=== PATIENT | female | born 1960 | race American Indian/Alaskan Native ===

== ENCOUNTER 2017-07-05 05:34 | Inpatient (IN) | payer MEDICARE, OTHER ==
[2017-07-05] MEDS ORDERED: BENADRYL IV ONE (05:52)
[2017-07-05] MEDS ORDERED: MORPHINE IV ONE (05:52)
[2017-07-05] MEDS ORDERED: NACL 0.9% 500 ML 500 ML IV ONE (05:52)
[2017-07-05 06:01] LABS: Basophils % (Auto) 0.6 % (0.0-1.8); Eosinophils % (Auto) 0.1 % (0.0-4.3); Hematocrit 35.3 % (30.3-42.9); Hemoglobin 11.9 gm/dl (10.1-14.3); Mean Corpuscular HGB Conc 34 % (30-34); Mean Corpuscular Hemoglobin 27 pg (28-32); Mean Corpuscular Volume 78 fl (79-97); Platelet Count 205 K/mm3 (140-440); Red Cell Distribution Width 17.9 % (13.2-15.2); White Blood Count 7.8 K/mm3 (4.5-11.0)
[2017-07-05 06:19] LABS: Anion Gap 24 mmol/L; BUN/Creatinine Ratio 17.14; Blood Urea Nitrogen 12 mg/dL (7-17); Calcium 9.5 mg/dL (8.4-10.2); Carbon Dioxide 20 mmol/L (22-30); Chloride 101.1 mmol/L (98-107); Glucose 136 mg/dL (65-100); Potassium 3.7 mmol/L (3.6-5.0); Sodium 141 mmol/L (137-145)
--- NOTE | 2017-07-05 06:20 | Emergency Department Report ---
ED Chest Pain HPI - General Chief Complaint: Chest Pain Stated Complaint: CP/BACK PAIN Time Seen by Provider: 07/05/17 06:12 Source: patient Mode of arrival: Stretcher Limitations: No Limitations - History of Present Illness MD Complaint: chest pain -: This morning Onset: awoke with symptoms Pain Location: substernal, left chest Severity: moderate Severity scale (0 -10): 10 Quality: heaviness, pressure Consistency: constant Improves With: nitroglycerin re: denies: nausea, vomting, dyspnea Treatments Prior to Arrival: aspirin - Related Data Home Medications Medication Instructions Recorded Confirmed Last Taken Cyanocobalamin 1,000 1000units SUB-Q 2XW 05/13/16 05/13/16 Unknown Ibuprofen [Motrin 800 MG tab] 800 tab PO TID 05/13/16 05/13/16 2 Weeks Ago 800 Meloxicam 15 tab PO DAILY 05/13/16 05/13/16 05/12/16 08:00 Spironolact/Hctz Tab [Aldactazide 25 tab PO DAILY 05/13/16 05/13/16 05/12/16 25-25 Tab] 25 Zolpidem Tartrate 10 tab PO HS 05/13/16 05/13/16 05/12/16 09:00 10 Allergies Allergy/AdvReac Type Severity Reaction Status Date / Time morphine Allergy Itching Unverified 05/04/15 11:36 Heart Score - HEART Score History: Moderately suspicious EKG: Non-specific Age: 45-65 Risk factors: 1-2 risk factors Troponin: < normal limit HEART Score: 4 - Critical Actions Critical Actions: 4-6 pts:12-16.6% risk of adverse cardiac event. Should be admitted ED Review of Systems ROS: Stated complaint: CP/BACK PAIN Other details as noted in HPI Comment: All other systems reviewed and negative Constitutional: denies: chills, fever Cardiovascular: chest pain, palpitations. denies: paroxysmal nocturnal dyspnea Endocrine: denies: excessive sweating Gastrointestinal: denies: abdominal pain, nausea, vomiting Neurological: denies: headache ED Past Medical Hx - Past Medical History Hx Hypertension: Yes Hx Arthritis: Yes - Surgical History Hx Cholecystectomy: Yes - Social History Smoking Status: Never Smoker Substance Use Type: Alcohol - Medications Home Medications: Home Medications Medication Instructions Recorded Confirmed Last Taken Type Cyanocobalamin 1,000 1000units SUB-Q 2XW 05/13/16 05/13/16 Unknown History Ibuprofen [Motrin 800 MG tab] 800 tab PO TID 05/13/16 05/13/16 2 Weeks Ago History 800 Meloxicam 15 tab PO DAILY 05/13/16 05/13/16 05/12/16 08:00 History Spironolact/Hctz Tab [Aldactazide 25 tab PO DAILY 05/13/16 05/13/16 05/12/16 History 25-25 Tab] 25 Zolpidem Tartrate 10 tab PO HS 05/13/16 05/13/16 05/12/16 09:00 History 10 ED Physical Exam - General Limitations: No Limitations General appearance: alert, in distress (secondary to pain) - Neck Neck exam: Present: normal inspection. Absent: tenderness, full ROM - Respiratory Respiratory exam: Present: normal lung sounds bilaterally. Absent: respiratory distress, rhonchi, chest wall tenderness - Cardiovascular Cardiovascular Exam: Present: tachycardia, irregular rhythm - GI/Abdominal GI/Abdominal exam: Present: soft. Absent: tenderness, guarding, rebound - Back Exam Back exam: Absent: CVA tenderness (R), CVA tenderness (L) - Neurological Exam Neurological exam: Present: alert, oriented X3, CN II-XII intact. Absent: motor sensory deficit ED Course Vital Signs 07/05/17 07/05/17 07/05/17 05:28 05:30 05:40 Temperature Pulse Rate 102 H 113 H 114 H Respiratory 20 18 28 H Rate Blood Pressure 143/88 121/98 Blood Pressure [Left] O2 Sat by Pulse 99 100 Oximetry 07/05/17 07/05/17 07/05/17 05:44 05:47 05:50 Temperature 98 F Pulse Rate 109 H 109 H Respiratory 20 20 18 Rate Blood Pressure 121/98 Blood Pressure 121/98 [Left] O2 Sat by Pulse 100 100 100 Oximetry 07/05/17 07/05/17 07/05/17 06:00 06:10 06:20 Temperature Pulse Rate 96 H 96 H 95 H Respiratory 17 18 25 H Rate Blood Pressure 121/98 121/98 121/98 Blood Pressure [Left] O2 Sat by Pulse 99 98 96 Oximetry 07/05/17 07/05/17 07/05/17 06:30 06:40 07:04 Temperature Pulse Rate 95 H 104 H 98 H Respiratory 29 H 24 19 Rate Blood Pressure 121/98 121/98 121/98 Blood Pressure [Left] O2 Sat by Pulse 98 98 Oximetry 07/05/17 07/05/17 07/05/17 07:10 07:20 07:30 Temperature Pulse Rate 93 H 110 H 104 H Respiratory 35 H 33 H 32 H Rate Blood Pressure 121/98 144/101 121/98 Blood Pressure [Left] O2 Sat by Pulse 96 95 Oximetry 07/05/17 07/05/17 07/05/17 07:40 07:50 08:00 Temperature Pulse Rate 104 H 101 H 94 H Respiratory 36 H 31 H 29 H Rate Blood Pressure 144/101 144/101 144/101 Blood Pressure [Left] O2 Sat by Pulse 98 96 97 Oximetry 07/05/17 07/05/17 07/05/17 08:10 08:20 08:30 Temperature Pulse Rate 100 H 101 H 95 H Respiratory 20 22 17 Rate Blood Pressure 144/101 144/101 144/101 Blood Pressure [Left] O2 Sat by Pulse 99 100 100 Oximetry 07/05/17 07/05/17 07/05/17 08:40 08:50 09:00 Temperature Pulse Rate 97 H 95 H 94 H Respiratory 29 H 26 H 25 H Rate Blood Pressure 144/101 144/101 144/101 Blood Pressure [Left] O2 Sat by Pulse 97 98 99 Oximetry 07/05/17 07/05/17 09:10 09:20 Temperature Pulse Rate 99 H 95 H Respiratory 25 H 22 Rate Blood Pressure 144/101 144/101 Blood Pressure [Left] O2 Sat by Pulse 99 97 Oximetry - Reevaluation(s) Reevaluation #1: 07/05/17 10:38 Patient stated that she is feeling better Reevaluation #2: 07/05/17 10:[address] Wiggins for admission. ED Medical Decision Making - Lab Data Result diagrams: 07/05/17 05:46 07/05/17 05:46 Critical care attestation.: If time is entered above; I have spent that time in minutes in the direct care of this critically ill patient, excluding procedure time. ED Disposition Clinical Impression: Chest pain, Atrial fibrillation with rapid ventricular response Disposition: OP ADMIT IP TO THIS HOSP Is pt being admited?: Yes Condition: Stable Instructions: Chest Pain (ED) Referrals: PRIMARY CARE, [Primary Care Provider] - 3-5 Days
[2017-07-05 06:26] LABS: INR 0.96 (0.87-1.13); Partial Thromboplastin Time < 20.0 Sec. (24.2-36.6)
[2017-07-05] MEDS ORDERED: TORADOL IV ONE (07:30)
[2017-07-05] MEDS ORDERED: NACL ONE (08:47)
--- NOTE | 2017-07-05 10:00 | Cat Scan Report ---
CT CHEST WITH CONTRAST: 07/05/17 08:44:00 CLINICAL: Chest pain with syncope. TECHNIQUE: PE protocol with volumetric acquisition and 1.25 mm scan reconstructions after the uneventful intravenous injection of 100 cc Omnipaque 350. Consent was obtained prior to the administration of contrast. FINDINGS: Less than optimum opacification of the pulmonary arteries and no definitive pulmonary artery thrombus identified. Normal heart and aorta. Bibasal reticular interstitial opacities, greater in the left lower lobe. A few groundglass opacities in the left lower lobe. No pleural effusion. Normal thyroid, trachea and esophagus. The upper abdomen is unremarkable. The bones and soft tissues are normal. IMPRESSION: Negative for pulmonary embolus.
[2017-07-05] MEDS ORDERED: BABY ASPIRIN PO STA (11:03)
[2017-07-05] MEDS ORDERED: SODIUM CHLORIDE FLUSH SYRINGE 10 ML IV PRN (11:03)
[2017-07-05] MEDS ORDERED: NITROSTAT SL PRN (11:03)
[2017-07-05] MEDS ORDERED: AMBIEN PO PRN (11:03)
[2017-07-05] MEDS ORDERED: ATIVAN IV PRN (11:15)
[2017-07-05] MEDS ORDERED: ATIVAN PO PRN (11:15)
[2017-07-05] MEDS ORDERED: LIBRIUM PO PRN (11:15)
[2017-07-05] MEDS ORDERED: VITAMIN B-1 100 MG, FOLVITE 1 MG, INFUVITE 10 ML in NACL 0.9% 1000 ML 1,000 ML IV ONE (11:17)
--- NOTE | 2017-07-05 11:18 | History and Physical Report ---
History of Present Illness Date of examination: 07/05/17 Chief complaint: Chest pain History of present illness: 56-year-old female with past medical history significant for alcohol abuse, CHF , fatty liver, osteoarthritis presented to the emergency department complaining of chest pain that started this morning around 4am. Pain is on the left and mid chest pain, pressure-like, 9 out of 10 in intensity, with radiation to the left arm, associated with sweating, shortness of breath and palpitation, pain medication alleviated the pain, no aggravating factors identified.. Patient denied fever, cough, swelling. Patient is alcoholic and has been drinking vodka , beer, and wine, last drink was last night. REVIEW OF SYSTEMS: GENERAL: no weight change, no fatigue, no fever HEAD: no head ache EYES: no blurry vision, no acute visual loss EARS: no hearing loss, no discharge, no earache NOSE: no stuffiness, no sneezing, no discharge MOUTH, THROAT AND NECK: no bleeding gums, no sore throat, no swollen neck CARDIAC: + palpitations,+dyspnea on exertion, no orthopnea, no PND, no edema,+ chest pain RESPIRATORY: no shortness of breath, no wheeze, no cough, no sputum, no hemoptysis, no asthma GI: no decreased appetite, + nausea, no vomiting, no dysphagia, no diarrhea, no constipation, no abdominal pain URINARY: no change in frequency, no urgency, no polyuria, no hematuria, no incontinence MUSCULOSKELETAL: no muscle weakness, no pain, no joint stiffness NEUROLOGIC: no loss of sensation/numbness, no tingling, no tremors, no weakness/ paralysis HEMATOLOGIC: no anemia, no easy bruising SKIN: no rashes ENDOCRINE: no heat/cold intolerance, no polyuria, no polydipsia, no thyroid problems, no diabetes PSYCHIATRIC: no anxiety, no depression, no suicidal ideations Past History Past Medical History: arthritis, heart failure, other (fatty liver) Past Surgical History: cholecystectomy, hysterectomy Social history: alcohol abuse (drinking vodka, beer, wine). denies: smoking, prescription drug abuse Family history: no significant family history Medications and Allergies Allergies Allergy/AdvReac Type Severity Reaction Status Date / Time morphine Allergy Itching Unverified 05/04/15 11:36 Home Medications Medication Instructions Recorded Confirmed Last Taken Type Cyanocobalamin 1,000 1000units SUB-Q 2XW 05/13/16 05/13/16 Unknown History Ibuprofen [Motrin 800 MG tab] 800 tab PO TID 05/13/16 05/13/16 2 Weeks Ago History 800 Meloxicam 15 tab PO DAILY 05/13/16 05/13/16 05/12/16 08:00 History Spironolact/Hctz Tab [Aldactazide 25 tab PO DAILY 05/13/16 05/13/16 05/12/16 History 25-25 Tab] 25 Zolpidem Tartrate 10 tab PO HS 05/13/16 05/13/16 05/12/16 09:00 History 10 Active Meds: Active Medications Aspirin (Baby Aspirin) 324 mg PO ONCE STA Stop: 07/05/17 11:04 Aspirin (Ecotrin) 325 mg PO QDAY DIANA Atorvastatin Calcium (Lipitor) 40 mg PO QHS DIANA Diltiazem HCl (Cardizem) 30 mg PO Q6HR DIANA Heparin Protocol (Heparin No Bolus) 1 each IV ONCE ONE Stop: 07/05/17 11:10 Hydromorphone HCl (Dilaudid) 1 mg IV Q4H PRN PRN Reason: Chest Pain Nitroglycerin (Nitrostat) 0.4 mg SL Q5M PRN PRN Reason: Chest Pain Sodium Chloride (Sodium Chloride Flush Syringe 10 Ml) 10 ml IV PRN PRN PRN Reason: LINE FLUSH Zolpidem Tartrate (Ambien) 5 mg PO QHS PRN PRN Reason: Sleep Exam - Physical Exam Narrative exam: Not in cardiopulmonary distress. The patient appeared well nourished and normally developed. Vital signs as documented. Head exam is unremarkable. No scleral icterus . Neck is without jugular venous distension, thyromegaly, or carotid bruits. Lungs are clear to auscultation. Cardiac exam reveals irregularly irregular heart rate. Abdominal exam reveals normal bowel sounds, no masses, no organomegaly and no aortic enlargement. Extremities are nonedematous and both femoral and pedal pulses are normal. 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 No focal weakness. - Constitutional Vitals: Temp Pulse Resp BP Pulse Ox 98 F 95 H 22 144/101 97 07/05/17 05:47 07/05/17 09:20 07/05/17 09:20 07/05/17 09:20 07/05/17 09:20 Results - Labs CBC & Chem 7: 07/05/17 05:46 07/05/17 05:46 Labs: Laboratory Last Values WBC 7.8 K/mm3 (4.5-11.0) 07/05/17 05:46 RBC 4.50 M/mm3 (3.65-5.03) 07/05/17 05:46 Hgb 11.9 gm/dl (10.1-14.3) 07/05/17 05:46 Hct 35.3 % (30.3-42.9) 07/05/17 05:46 MCV 78 fl (79-97) L 07/05/17 05:46 MCH 27 pg (28-32) L 07/05/17 05:46 MCHC 34 % (30-34) 07/05/17 05:46 RDW 17.9 % (13.2-15.2) H 07/05/17 05:46 Plt Count 205 K/mm3 (140-440) 07/05/17 05:46 Lymph % (Auto) 18.8 % (13.4-35.0) 07/05/17 05:46 [place] % (Auto) 7.3 % (0.0-7.3) 07/05/17 05:46 Eos % (Auto) 0.1 % (0.0-4.3) 07/05/17 05:46 Baso % (Auto) 0.6 % (0.0-1.8) 07/05/17 05:46 Lymph # 1.5 K/mm3 (1.2-5.4) 07/05/17 05:46 [place] # 0.6 K/mm3 (0.0-0.8) 07/05/17 05:46 Eos # 0.0 K/mm3 (0.0-0.4) 07/05/17 05:46 Baso # 0.0 K/mm3 (0.0-0.1) 07/05/17 05:46 Seg Neutrophils % 73.2 % (40.0-70.0) H 07/05/17 05:46 Seg Neutrophils # 5.7 K/mm3 (1.8-7.7) 07/05/17 05:46 PT 13.3 Sec. (12.2-14.9) 07/05/17 05:54 INR 0.96 (0.87-1.13) 07/05/17 05:54 APTT < 20.0 Sec. (24.2-36.6) L 07/05/17 05:54 D-Dimer 699.23 ng/mlDDU (0-234) H 07/05/17 05:54 Sodium 141 mmol/L (137-145) 07/05/17 05:46 Potassium 3.7 mmol/L (3.6-5.0) 07/05/17 05:46 Chloride 101.1 mmol/L (98-107) 07/05/17 05:46 Carbon Dioxide 20 mmol/L (22-30) L 07/05/17 05:46 Anion Gap 24 mmol/L 07/05/17 05:46 BUN 12 mg/dL (7-17) 07/05/17 05:46 Creatinine 0.7 mg/dL (0.7-1.2) 07/05/17 05:46 Estimated GFR > 60 ml/min 07/05/17 05:46 BUN/Creatinine Ratio 17.14 % 07/05/17 05:46 Glucose 136 mg/dL (65-100) H 07/05/17 05:46 Calcium 9.5 mg/dL (8.4-10.2) 07/05/17 05:46 Troponin T < 0.010 ng/mL (0.00-0.029) 07/05/17 08:28 - Imaging and Cardiology EKG: image reviewed (afib with RVR) CT scan - chest: image reviewed (No PE) Assessment and Plan Assessment and plan: A. fib with RVR - now the herat rate slows down to 80's and 90's - Patient started on heparin drip - Cardiology consulted Chest pain - Positive cardiac enzymes are negative - EKG significant for A. fib with RVR - Pain control, stress test, serial EKGs and troponins. CHF - Patient said she was diagnosed with CHF but didn't have any symptoms - We'll do echo Alcohol abuse - Patient is on stool protocol - Banana bag DVT prophylaxis -On therapeutic heparin Disposition -Admit to telemetry floor Advance Directives: Yes VTE prophylaxis?: Chemical Plan of care discussed with patient/family: Yes
[2017-07-05] MEDS ORDERED: DILAUDID ONE (12:06)
[2017-07-05] MEDS ORDERED: BABY ASPIRIN ONE (12:07)
[2017-07-05] MEDS ORDERED: NITROSTAT SL ONE (12:07)
[2017-07-05] MEDS ORDERED: CARDIZEM ONE (12:08)
[2017-07-05] MEDS: DILAUDID IV PRN ×3 (12:10→21:22)
[2017-07-05] MEDS: CARDIZEM PO SCH ×2 (12:14→17:11)
[2017-07-05 12:18] LABS: Basophils % (Auto) 0.5 % (0.0-1.8); Hemoglobin 12.1 gm/dl (10.1-14.3); Mean Corpuscular HGB Conc 34 % (30-34); Mean Corpuscular Hemoglobin 27 pg (28-32); Mean Corpuscular Volume 79 fl (79-97); Platelet Count 176 K/mm3 (140-440); Red Blood Count 4.44 M/mm3 (3.65-5.03); Red Cell Distribution Width 18.4 % (13.2-15.2); White Blood Count 9.8 K/mm3 (4.5-11.0)
[2017-07-05 12:28] LABS: INR 1.05 (0.87-1.13); Partial Thromboplastin Time 23.1 Sec. (24.2-36.6)
[2017-07-05 12:31] LABS: Anion Gap 19 mmol/L; BUN/Creatinine Ratio 15.55; Blood Urea Nitrogen 14 mg/dL (7-17); Calcium 8.8 mg/dL (8.4-10.2); Carbon Dioxide 23 mmol/L (22-30); Chloride 105.3 mmol/L (98-107); Glucose 117 mg/dL (65-100); Potassium 3.9 mmol/L (3.6-5.0); Sodium 143 mmol/L (137-145)
[2017-07-05] MEDS ORDERED: HEPARIN/ 0.45% NACL-25,000 UNIT/500 ML 25,000 UNIT/500 ML BAG IV SCH (17:00)
[2017-07-05] MEDS ORDERED: COUMADIN PO SCH (17:00)
[2017-07-05 17:39] LABS: Hematocrit 33.1 % (30.3-42.9); Hemoglobin 11.3 gm/dl (10.1-14.3)
[2017-07-05 18:00] LABS: INR 1.06 (0.87-1.13)
[2017-07-05 18:02] LABS: Partial Thromboplastin Time 24.4 Sec. (24.2-36.6)
[2017-07-05] MEDS: LIBRIUM PO SCH (21:20)
[2017-07-06] MEDS: CARDIZEM PO SCH ×3 (00:39→11:31)
[2017-07-06] MEDS: DILAUDID IV PRN ×2 (03:15→11:40)
[2017-07-06 06:55] LABS: Basophils % (Auto) 0.5 % (0.0-1.8); Eosinophils % (Auto) 0.1 % (0.0-4.3); Hematocrit 34.1 % (30.3-42.9); Hemoglobin 11.7 gm/dl (10.1-14.3); Mean Corpuscular HGB Conc 34 % (30-34); Mean Corpuscular Hemoglobin 27 pg (28-32); Mean Corpuscular Volume 79 fl (79-97); Platelet Count 163 K/mm3 (140-440); Red Cell Distribution Width 18.2 % (13.2-15.2); White Blood Count 10.4 K/mm3 (4.5-11.0)
[2017-07-06 07:08] LABS: Anion Gap 25 mmol/L; BUN/Creatinine Ratio 13.33; Blood Urea Nitrogen 12 mg/dL (7-17); Calcium 8.8 mg/dL (8.4-10.2); Carbon Dioxide 20 mmol/L (22-30); Chloride 101.7 mmol/L (98-107); Glucose 73 mg/dL (65-100); Potassium 3.7 mmol/L (3.6-5.0); Sodium 143 mmol/L (137-145)
[2017-07-06 08:13] LABS: INR > 17.67 (0.87-1.13)
[2017-07-06] MEDS ORDERED: LEXISCAN IV ONE ×2 (08:13→08:20)
[2017-07-06 10:02] LABS: INR 1.18 (0.87-1.13)
--- NOTE | 2017-07-06 11:28 | Consultation ---
History of Present Illness Consult date: 07/06/17 Requesting physician: JONNY INIGUEZ Consult reason: chest pain History of present illness: Patient is a 56-year-old who presented to the hospital with palpitations and chest pain. Patient reports she has chest pain substernal and epigastric pain. No particular aggravating factors no particular relieving factors. Reports no prior cardiac history,lthou patient is a very poor historian. She unfortunately has a history of alcohol abuse with most recent alcohol binge drinking. On arrival to the emergency room patient was noted to have irregular heart rate. She has been started on IV heparin and Coumadin for possible atrial fibrillation. Still complains of vague chest pain. Past History Past Medical History: arthritis, heart failure, other (fatty liver) Past Surgical History: cholecystectomy, hysterectomy Social history: alcohol abuse (drinking vodka, beer, wine). denies: smoking, prescription drug abuse Family history: no significant family history Medications and Allergies Allergies Allergy/AdvReac Type Severity Reaction Status Date / Time morphine Allergy Itching Unverified 05/04/15 11:36 Home Medications Medication Instructions Recorded Confirmed Last Taken Type Cyanocobalamin 1,000 1000units SUB-Q 2XW 05/13/16 05/13/16 Unknown History Ibuprofen [Motrin 800 MG tab] 800 tab PO TID 05/13/16 05/13/16 2 Weeks Ago History 800 Meloxicam 15 tab PO DAILY 05/13/16 05/13/16 05/12/16 08:00 History Spironolact/Hctz Tab [Aldactazide 25 tab PO DAILY 05/13/16 05/13/16 05/12/16 History 25-25 Tab] 25 Zolpidem Tartrate 10 tab PO HS 05/13/16 05/13/16 05/12/16 09:00 History 10 Active Meds: Active Medications Aspirin (Ecotrin) 325 mg PO QDAY [facility] Atorvastatin Calcium (Lipitor) 40 mg PO QHS [facility] Last Admin: 07/05/17 21:20 Dose: 40 mg Chlordiazepoxide HCl (Librium) 50 mg PO Q12HR [facility] Last Admin: 07/05/17 21:20 Dose: 50 mg Chlordiazepoxide HCl (Librium) 100 mg PO Q1H PRN PRN Reason: CIWA-Ar 16-25 Diltiazem HCl (Cardizem) 30 mg PO Q6HR [facility] Last Admin: 07/06/17 06:50 Dose: 30 mg Hydromorphone HCl (Dilaudid) 1 mg IV Q4H PRN PRN Reason: Chest Pain Last Admin: 07/06/17 03:15 Dose: 1 mg Heparin Sodium/Sodium Chloride (Heparin/ 0.45% Nacl-25,000 Unit/500 Ml) 25,000 unit in 500 mls @ 30 mls/hr IV TITR DIANA; 1,500 UNITS/HR PRN Reason: Protocol Last Titration: 07/06/17 07:55 Dose: 1,950 units/hr, 39 mls/hr Lorazepam (Ativan) 2 mg PO Q1H PRN PRN Reason: CIWA-Ar 8-15 Nitroglycerin (Nitrostat) 0.4 mg SL Q5M PRN PRN Reason: Chest Pain Last Admin: 07/05/17 23:39 Dose: 0.4 mg Pneumococcal Polyvalent Vaccine (Pneumovax 23) 0.5 ml IM .ONCE ONE Stop: 07/06/17 12:01 Sodium Chloride (Sodium Chloride Flush Syringe 10 Ml) 10 ml IV PRN PRN PRN Reason: LINE FLUSH Warfarin Sodium (Coumadin) 5 mg PO DAILY@1700 DIANA Last Admin: 07/05/17 17:11 Dose: 5 mg Zolpidem Tartrate (Ambien) 5 mg PO QHS PRN PRN Reason: Sleep Last Admin: 07/06/17 00:40 Dose: 5 mg Review of Systems All systems: negative (as mentioned in the H&P) Physical Examination Vital Signs Pulse Resp 102 H 20 07/05/17 05:28 07/05/17 05:28 Narrative exam: GEN: NAD morbidly obese HEENT: Carotids 2+ NECK: SUPPLE, CVS: RRR, NORMAL S1S2 LUNGS/CHEST: CTA ABD: SOFT, MSK: FROM X 4 EXTREMITIES NEURO: CN 2-12 GROSSLY INTACT, NO FOCAL DEFICITS PSY: CALM Results 07/06/17 06:25 07/06/17 06:25 Coagulation 07/05/17 07/05/17 07/06/17 Range/Units 12:05 16:34 06:27 PT 14.2 14.4 < 10.0 L (12.2-14.9) Sec. INR 1.05 1.06 > 17.67 H* (0.87-1.13) APTT 23.1 L 24.4 (24.2-36.6) Sec. 07/06/17 Range/Units 07:50 PT 15.6 H (12.2-14.9) Sec. INR 1.18 H (0.87-1.13) APTT (24.2-36.6) Sec. Lipids 07/05/17 Range/Units 12:05 Triglycerides 86 (2-149) mg/dL Cholesterol 173 (50-199) mg/dL HDL Cholesterol 55 (40-59) mg/dL Cholesterol/HDL Ratio 3.14 % CBC 07/05/17 07/05/17 07/06/17 Range/Units 12:05 16:34 06:25 WBC 9.8 10.4 (4.5-11.0) K/mm3 RBC 4.44 4.30 (3.65-5.03) M/mm3 Hgb 12.1 11.3 11.7 (10.1-14.3) gm/dl Hct 35.0 33.1 34.1 (30.3-42.9) % Plt Count 176 175 163 (140-440) K/mm3 Lymph # 1.1 L 1.3 (1.2-5.4) K/mm3 [place] # 0.8 0.7 (0.0-0.8) K/mm3 Eos # 0.0 0.0 (0.0-0.4) K/mm3 Baso # 0.1 0.0 (0.0-0.1) K/mm3 Comprehensive Metabolic Panel 07/05/17 07/06/17 Range/Units 12:05 06:25 Sodium 143 143 (137-145) mmol/L Potassium 3.9 3.7 (3.6-5.0) mmol/L Chloride 105.3 101.7 (98-107) mmol/L Carbon Dioxide 23 20 L (22-30) mmol/L BUN 14 12 (7-17) mg/dL Creatinine 0.9 0.9 (0.7-1.2) mg/dL Glucose 117 H 73 (65-100) mg/dL Calcium 8.8 8.8 (8.4-10.2) mg/dL EKG interpretations - Telemetry EKG Rhythm: Sinus Rhythm (with frequent PACs and PVCs no evidence of atrial fibrillation) Assessment and Plan 1. Chest pain atypical 2. Stress test today with mild apical ischemia 3. Palpitation with EKG showing frequent PVCs and PACs, during stress test patient had a run of nonsustained VT and remained in ventricular bigeminy 4. Obesity 5. Hypertension 6. Alcohol abuse Plan Start beta blockers DC heparin and Coumadin and this no evidence of atrial fibrillation Obtain 2-D echo Check magnesium maintaining magnesium about 2 and potassium above 4 GI prophylaxis Cardiac cath will be advised likely Friday once she is more stable
[2017-07-06] MEDS: LIBRIUM PO SCH ×2 (11:30→22:17)
[2017-07-06] MEDS: ECOTRIN PO SCH (11:30)
[2017-07-06] MEDS ORDERED: PNEUMOVAX 23 IM ONE (12:00)
--- NOTE | 2017-07-06 12:07 | Progress Note ---
Assessment and Plan Assessment and plan: Chest pain. Patient had abnormal stress test today. She was evaluated by cardiology. For cardiac catheterization, possibly tomorrow. Will keep NPO after midnight. Chronic diastolic CHF. Echo shows EF 55-60% Back pain. Start percocet prn. Alcohol abuse. She has been started on CIWA protocol DVT prophylaxis. She has been on Heparin, just now been discontinued. Will only use SCDs for now since she is for cardiac cath tomorrow morning. Full CODE STATUS History Interval history: chest pain, back pain Hospitalist Physical - Physical exam Narrative exam: General appearance :Not in acute distress, morbidly obese HEENT: Normocephalic, atraumatic Neck: Supple, no JVD Lungs: Clear to auscultation bilaterally, no crackles, or wheezes. Heart: S1 and S2 regular, no murmurs, no gallops, rub Abdomen : Soft, non-tender, non-distended, normal bowel sounds Extremities :No edema, no clubbing or cyanosis Neuro: Awake, alert, oriented 3, normal speech, no focal neurological signs Psych: normal mood. - Constitutional Vitals: Temp Pulse Resp BP Pulse Ox 98.4 F 104 H 20 158/84 95 07/06/17 08:00 07/06/17 09:43 07/06/17 08:00 07/06/17 09:43 07/06/17 10:00 Results - Labs CBC & Chem 7: 07/06/17 06:25 07/06/17 06:25 Labs: Laboratory Last Values WBC 10.4 K/mm3 (4.5-11.0) 07/06/17 06:25 RBC 4.30 M/mm3 (3.65-5.03) 07/06/17 06:25 Hgb 11.7 gm/dl (10.1-14.3) 07/06/17 06:25 Hct 34.1 % (30.3-42.9) 07/06/17 06:25 MCV 79 fl (79-97) 07/06/17 06:25 MCH 27 pg (28-32) L 07/06/17 06:25 MCHC 34 % (30-34) 07/06/17 06:25 RDW 18.2 % (13.2-15.2) H 07/06/17 06:25 Plt Count 163 K/mm3 (140-440) 07/06/17 06:25 Lymph % (Auto) 12.3 % (13.4-35.0) L 07/06/17 06:25 [place] % (Auto) 6.9 % (0.0-7.3) 07/06/17 06:25 Eos % (Auto) 0.1 % (0.0-4.3) 07/06/17 06:25 Baso % (Auto) 0.5 % (0.0-1.8) 07/06/17 06:25 Lymph # 1.3 K/mm3 (1.2-5.4) 07/06/17 06:25 [place] # 0.7 K/mm3 (0.0-0.8) 07/06/17 06:25 Eos # 0.0 K/mm3 (0.0-0.4) 07/06/17 06:25 Baso # 0.0 K/mm3 (0.0-0.1) 07/06/17 06:25 Seg Neutrophils % 80.2 % (40.0-70.0) H 07/06/17 06:25 Seg Neutrophils # 8.3 K/mm3 (1.8-7.7) H 07/06/17 06:25 PT 15.6 Sec. (12.2-14.9) H 07/06/17 07:50 INR 1.18 (0.87-1.13) H 07/06/17 07:50 APTT 24.4 Sec. (24.2-36.6) 07/05/17 16:34 D-Dimer 699.23 ng/mlDDU (0-234) H 07/05/17 05:54 Heparin Anti-Xa Level < 0.10 U.I./ml (0.3-0.7) L 07/06/17 06:25 Sodium 143 mmol/L (137-145) 07/06/17 06:25 Potassium 3.7 mmol/L (3.6-5.0) 07/06/17 06:25 Chloride 101.7 mmol/L (98-107) 07/06/17 06:25 Carbon Dioxide 20 mmol/L (22-30) L 07/06/17 06:25 Anion Gap 25 mmol/L 07/06/17 06:25 BUN 12 mg/dL (7-17) 07/06/17 06:25 Creatinine 0.9 mg/dL (0.7-1.2) 07/06/17 06:25 Estimated GFR > 60 ml/min 07/06/17 06:25 BUN/Creatinine Ratio 13.33 % 07/06/17 06:25 Glucose 73 mg/dL (65-100) 07/06/17 06:25 Calcium 8.8 mg/dL (8.4-10.2) 07/06/17 06:25 Troponin T < 0.010 ng/mL (0.00-0.029) 07/05/17 16:34 NT-Pro-B Natriuret Pep 412.6 pg/mL (0-900) 07/05/17 08:28 Triglycerides 86 mg/dL (2-149) 07/05/17 12:05 Cholesterol 173 mg/dL (50-199) 07/05/17 12:05 LDL Cholesterol Direct 101 mg/dL (50-130) 07/05/17 12:05 HDL Cholesterol 55 mg/dL (40-59) 07/05/17 12:05 Cholesterol/HDL Ratio 3.14 % 07/05/17 12:05
[2017-07-06] MEDS: PERCOCET 5/325 PO PRN ×2 (16:20→22:18)
--- NOTE | 2017-07-06 21:33 | Treadmill Report ---
Myocardial perfusion scan was done using the standard Lexiscan protocol. Rest and stress images were compared. Unfortunately due to frequent PVCs and study could not be gated. FINDINGS: There is an evidence of small defect of moderate intensity in the apical wall. Study not gated for wall motion. There is an intermediate risk study. JOB# [id number] RR/NTS
[2017-07-06] MEDS ORDERED: LOVENOX SUB-Q SCH (22:00)
[2017-07-06] MEDS: LOPRESSOR PO SCH (22:17)
[2017-07-07] MEDS: PERCOCET 5/325 PO PRN ×4 (03:52→20:50)
--- NOTE | 2017-07-07 06:34 | Admit Criteria Form ---
Admission Criteria Documentation: ATRIAL FIBRILLATION Clinical Indications for Admission to Inpatient Care (Place 'X' for any and all applicable criteria): Admission indicated for ANY ONE of the following(1)(2)(3)(4)(5) : [ ]I. Myocardial ischemia [ ]II. Dyspnea or hypoxemia [ ]III. Hemodynamic instability [ ]IV. Heart failure (e.g., pulmonary edema) (7) [X]V. New-onset (less than 48 hours) atrial fibrillation with high risk for causing complications secondary to comorbidities (eg, symptomatic heart failure ) [ ]. Altered mental status [ ]VII. Syncope [ ]VIII. Patient has implantable cardioverter defibrillator that has fired more than once within past 24hr or needs immediate adjustment of settings that cannot be done other than in inpatient setting. (8) [ ]IX. Suspected accessory pathway (e.g., Oaidu-Avkjmisfm-Xtnxx syndrome) on ECG [ ]X. Recent systemic thromboembolism (eg, stroke) [ ]XI. Medication toxicity (e.g., digitalis) causing arrhythmia(9) [ ]XII. Underlying medical condition that necessitates inpatient care (e.g., thyrotoxicosis, pneumonia) (10) [ ]XIII. Continuous ECG monitoring is required for condition causing arrhythmia (e.g., severe hyperkalemia, hypokalemia, acid-base disturbance).(11)(12)(13) [ ]XIV. Initiation of antiarrhythmic drug therapy is needed in patient at high risk of adverse effects as indicated by ANY ONE of the following: [ ]a) Significant structural heart disease (e.g., reduced ejection fraction, congenital heart disease, valvular heart disease) [ ]b) Prolonged QT interval [ ]c) Underlying sinus node or atrioventricular conduction disturbances [ ]d) Need for treatment with antiarrhythmic drugs that have significant proarrhythmic potential (e.g., dofetilide, sotalol, procainamide) [ ]e) Patient whose sinus rhythm has never been observed on ECG [ ]XV. Intolerable symptoms despite optimal outpatient treatment [ ]XVI. Elective or urgent cardioversion that cannot be performed on outpatient basis or during observation care. [A] (Use also Atrial Fibrillation: Observation Care ) as appropriate.(14) [ ]XVII.Contraindications and/or Inappropriate clinical situations for Observational Care in patients with Atrial Fibrillation, when ANY ONE of the following is required: [ ]a) Patient with High risk of cardiac embolism (e.g, patients with previous cardiac embolism, LVEF < 40%, age >75 and patients with prosthetic valve) 18 [ ]b) Patient with Moderate risk including DM patient, CAD and patient aged 65-75 18 [ ]c) Patient with any change in cardiac biomarker especially troponin should be managed as high risk in an inpatient setting 19 [ ]d) Physician judgement irrespective of ECG and other diagnostic findings 20 [ ]XVIII.General contraindications and/or Inappropriate clinical situations for Observational Care in patients with Atrial Fibrillation, when ANY ONE of the following is required: [ ]a) Prediction of prolongation of LOS based on ANY ONE of the following may be considered as a contraindication for observational care 2, 3, 4, 5, 6, 7, 8, 9, 10, 11 [ ]i) Age > 65 yrs. [ ]ii) Patient arriving by ambulance [ ]iii) Patient with high acuity [ ]iv) Patient requiring vital sign monitoring [ ]v) Patient on IV medication [ ]b) Systolic blood pressures 180mmHg 3,12 [ ]c) Patient with altered mental status including delirium and other alteration of consciousness3 [ ]d) Patient whose discharge disposition will be to a alf home or rehabilitation home should not be managed in Emergency Department Observation Unit. CMS rule requires 3 days hospital stay before such placement.3,13 [ ]e) Patient with failure to thrive due to broad array of etiologies 3,16,17 [ ]f) Inability to ambulate 3,14 Extended stay beyond goal length of stay may be needed for (1)(25)(26): [ ]a) Unstable comorbidities [ ]b) Persistently uncontrolled atrial fibrillation or other arrhythmias [ ]c) Acute thromboembolic event (e.g., stroke, limb ischemia) [ ]d) Need for inpatient attainment of full anticoagulation The original [employer] content created by [employer] has been revised. The portions of the content which have been revised are identified through the use of italic text or in bold, and [facility] has neither reviewed nor approved the modified material. All other unmodified content is copyright [employer]. Please see references footnoted in the original [employer] edition 2016 Admission Criteria Met: Yes
[2017-07-07 07:16] LABS: Hematocrit 30.1 % (30.3-42.9); Hemoglobin 10.2 gm/dl (10.1-14.3)
[2017-07-07 07:26] LABS: INR 1.15 (0.87-1.13)
[2017-07-07] MEDS: ECOTRIN PO SCH (10:00)
[2017-07-07] MEDS: LIBRIUM PO SCH (10:00)
[2017-07-07] MEDS: LOPRESSOR PO SCH (10:00)
[2017-07-07] MEDS ORDERED: HEPARIN/NS 5000 UNIT/500ML(CATH LAB) 1,000 ML IR ONE (10:01)
[2017-07-07] MEDS ORDERED: VERSED ONE (10:02)
[2017-07-07] MEDS ORDERED: SUBLIMAZE ONE (10:02)
[2017-07-07] MEDS ORDERED: NITROGLYCERIN SYRINGE 3 ML ONE (10:02)
[2017-07-07] MEDS ORDERED: NACL 0.9% 500 ML 500 ML ONE (10:44)
[2017-07-07] MEDS: XYLOCAINE 2% INFILTRATI ONE ×2 (10:53→11:02)
[2017-07-07] MEDS: CALAN ONE ×2 (10:54→11:04)
[2017-07-07] MEDS: HEPARIN 10,000 UNITS/10 ML ONE ×2 (10:54→11:04)
--- NOTE | 2017-07-07 11:27 | Progress Note ---
Assessment and Plan Chest pain, atypical Mild apical ischemia on MPI Non-obstructive CAD by cath Normal LVEF by echo Normal CTA chest Frequent PVCs on tele Fatty liver/alcohol abuse Mild thrombocytopenia Recommendations: No further cardiac work-up Patient may go home on asa, lipitor and metoprolol Alcohol abstinence Outpatient follow-up of plt count Subjective Date of service: 07/07/17 Principal diagnosis: Chest Pain Interval history: Patient underwent a LHC today showing non-obstructive CAD, no complications Objective Vital Signs Temp Pulse Pulse Resp BP Pulse Ox 07/07/17 08:53 22 07/07/17 04:52 22 07/07/17 04:14 98.0 F 85 20 121/69 94 07/07/17 03:52 20 07/06/17 23:49 98.0 F 79 20 102/82 92 07/06/17 23:18 20 07/06/17 22:18 20 07/06/17 22:17 73 142/86 07/06/17 21:37 96 07/06/17 21:04 90 24 96 07/06/17 19:50 98.4 F 73 20 142/86 96 07/06/17 19:20 94 H 07/06/17 18:11 98.2 F 51 L 20 161/90 94 07/06/17 12:41 88 07/06/17 12:30 98.5 F 70 20 156/100 95 - Physical Examination General: Appears Well HEENT: Positive: PERRL Neck: Positive: neck supple Cardiac: Positive: Reg Rate and Rhythm Lungs: Positive: Normal Exam Neuro: Positive: Grossly Intact Abdomen: Positive: Soft Extremities: Present: normal - Labs and Meds Coagulation 07/07/17 Range/Units 07:07 PT 15.3 H (12.2-14.9) Sec. INR 1.15 H (0.87-1.13) CBC 07/07/17 Range/Units 07:10 Hgb 10.2 (10.1-14.3) gm/dl Hct 30.1 L (30.3-42.9) % Plt Count 113 L (140-440) K/mm3 - Imaging and Cardiology EKG: image reviewed (afib with RVR)
--- NOTE | 2017-07-07 12:34 | Discharge Summary ---
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 She was given Aspirin and admitted to Telemetry. Cardiology was consulted and she was evaluated. Stress test was done and was abnormal therefore cardiac cath was recommended. Cardiac cath was done by Dr. Rutledge on 07/07/17 and revealed non- obstructive coronary artery disease-20% lesion in mid LAD. She was then discharged home. Chest pain, non cardiac, due to GERD. Total time spent on discharge, 33 mins. Disposition: TO HOME OR SELFCARE - Discharge Diagnoses (1) Non-occlusive coronary artery disease Status: Acute (2) Chest pain Status: Acute Qualifiers: Chest pain type: C Ischemic chest pain type: I Comment: due to GERD (3) GERD (gastroesophageal reflux disease) Status: Acute Qualifiers: Esophagitis presence: without esophagitis Qualified Code(s): K21.9 - Gastro -esophageal reflux disease without esophagitis (4) Chronic diastolic CHF (congestive heart failure) Status: Chronic (5) Fatty liver Status: Chronic (6) Morbid obesity with body mass index (BMI) of 45.0 to 49.9 in adult Status: Chronic Core Measure Documentation - Palliative Care Palliative Care/ Comfort Measures: Not Applicable - Core Measures Any of the following diagnoses?: heart failure - Heart Failure Discharge Requirements WALTER/ARB for LVSD if EF <40%: Not Applicable Beta cortes at discharge: Yes Exam - Constitutional Vitals: Temp Pulse Resp BP Pulse Ox 98.0 F 85 22 121/69 94 07/07/17 04:14 07/07/17 04:14 07/07/17 08:53 07/07/17 04:14 07/07/17 04:14 Plan Activity: advance as tolerated Diet: low fat, low cholesterol, low salt Additional Instructions: 1.Follow up with PCP in 1 week. 2.Follow up with Dr. Rutledge, Cardiology in 1 week. 3.Avoid alcohol Follow up with: PRIMARY CARE, [Primary Care Provider] - 3-5 Days Prescriptions: Aspirin EC [Aspirin Enteric Coated TAB] 325 mg PO QDAY #30 tablet AtorvaSTATin [Lipitor] 20 mg PO QHS #30 tab Famotidine [Pepcid] 20 mg PO BID #30 tablet Metoprolol [Lopressor TAB] 50 mg PO BID #60 tablet
--- NOTE | 2017-07-07 14:35 | Cardiac Catherization Report ---
LEFT HEART CATHETERIZATION INDICATION FOR PROCEDURE: Chest pain, abnormal myocardial perfusion scan revealing mild apical ischemia. ORDERING PHYSICIAN: Dr. Rik Joe. PROCEDURES PERFORMED: 1. Selective left and right coronary angiography. 2. Left ventriculography. DESCRIPTION OF PROCEDURE: After obtaining written consent, the patient was draped using sterile technique. A 2% lidocaine was injected into the right wrist. A 6-Peruvian vascular sheath was inserted into the right radial artery. A 6-Peruvian JL4 catheter was used to selectively engage the left coronary artery. A 6-Peruvian JR4 catheter was used to selectively engage the right coronary artery. A 6-Peruvian JR4 catheter was used to hand inject the left ventriculogram. No complications occurred during the procedure. Hemostasis was achieved at the end of the procedure using manual pressure. SPECIMEN REMOVED: None. ESTIMATED BLOOD LOSS: Minimal. FINDINGS: HEMODYNAMICS: Aortic pressure 125/80 with an LV systolic pressure of 180 mmHg. Left ventricular end-diastolic pressure measured at 30 mmHg. No significant gradient noted across the left ventricular outflow tract. CARDIAC STRUCTURES: The left ventricle is normal in size. There is borderline global left ventricular hypokinesis with an ejection fraction estimated at 50%. CORONARY ANATOMY: 1. This is a right dominant circulation. 2. The left main is angiographically normal. 3. The LAD has mild tubular disease noted in the midsegment with approximately 20% luminal obstruction. 4. The left circumflex artery is normal in caliber. 5. The right coronary artery is also normal with no evidence of obstructive or nonobstructive disease. IMPRESSION: 1. Nonobstructive coronary disease involving the mid left anterior descending, otherwise normal coronary segments. 2. Left ventricular ejection fraction estimated at 50% with borderline global hypokinesis. 3. Left ventricular end-diastolic pressure measured at 30 mmHg. RECOMMENDATIONS: Continue current medical therapy. JOB# [id number] ANDRESSA/CRISTINO
[2017-07-07 20:25] VITALS: BP 150/90
== END 2017-07-07 21:37 | disposition home or self-care (01) | DRG 287 ==
LOC: ED 05:34 → 4A 11:02
PROVIDERS: ADMIT Internal Medicine; ATTEND Internal Medicine
PROC: 3E0234Z Introduction of Serum, Toxoid and Vaccine into Muscle, Percutaneous Approach (ICD-10-PCS; 2017-07-06)
PROC: 4A023N7 Measurement of Cardiac Sampling and Pressure, Left Heart, Percutaneous Approach (ICD-10-PCS; principal; 2017-07-07)
PROC: B2111ZZ Fluoroscopy of Multiple Coronary Arteries using Low Osmolar Contrast (ICD-10-PCS; 2017-07-07)
PROC: B2151ZZ Fluoroscopy of Left Heart using Low Osmolar Contrast (ICD-10-PCS; 2017-07-07)
DX: I25.10 Atherosclerotic heart disease of native coronary artery without angina pectoris (principal); I50.32 Chronic diastolic (congestive) heart failure; M19.90 Unspecified osteoarthritis, unspecified site; I48.91 Unspecified atrial fibrillation; I11.0 Hypertensive heart disease with heart failure; F10.10 Alcohol abuse, uncomplicated; E66.01 Morbid (severe) obesity due to excess calories; M54.9 Dorsalgia, unspecified; K70.0 Alcoholic fatty liver; D69.6 Thrombocytopenia, unspecified; I49.3 Ventricular premature depolarization; K21.9 Gastro-esophageal reflux disease without esophagitis; Z90.49 Acquired absence of other specified parts of digestive tract; Z79.01 Long term (current) use of anticoagulants; Z90.710 Acquired absence of both cervix and uterus; Z88.6 Allergy status to analgesic agent; Z23 Encounter for immunization
CPT/HCPCS: 36415; 71275; 78452; 80048; 80061; 83880; 84484; 85014; 85018; 85025; 85049; 85379; 85520; 85610; 85730; 90732; 93005; 93010; 93017; 93306; 93458; 94760; 96361; 96374; 96375; A9270-GY; A9502; C1894; J1170; J1200; J1644; J1650; J1885; J2250; J2270; J2785; J3010; J3411; J7030; J7040; Q9967

== ENCOUNTER 2019-02-16 03:46 | Inpatient (IN) | payer MEDICARE ==
[2019-02-16] MEDS ORDERED: CARDIZEM IV ONE (04:06)
[2019-02-16] MEDS ORDERED: ZOFRAN IV ONE (04:06)
[2019-02-16] MEDS ORDERED: DILAUDID IV ONE ×2 (04:07→04:34)
[2019-02-16] MEDS ORDERED: DILAUDID ONE (04:10)
[2019-02-16] MEDS ORDERED: ZOFRAN ONE (04:11)
--- NOTE | 2019-02-16 04:32 | Emergency Department Report ---
HPI - General Chief Complaint: Chest Pain Time Seen by Provider: 02/16/19 04:01 - HPI HPI: Room 21 The chief complaint chest pain. Patient states a pressure tightness prior to arrival she developed a constant substernal chest pressure as well as palpita tions. Patient states she has had shortness of breath, diaphoresis and nausea without vomiting's associate with chest pain. Patient states she has a history of fibrillation but has not taken her Xarelto for the last 6 months secondary to being unable to afford the medication. Patient gives her pain score 10/10 Location: Chest Duration: 30 minutes Quality: Pressure Severity: 10/10 Modifying factors: [see above] Context: [see above] Mode of transportation: [not driving] ED Past Medical Hx - Past Medical History Previous Medical History?: Yes Hx Hypertension: Yes Hx Congestive Heart Failure: Yes Hx Arthritis: Yes - Surgical History Past Surgical History?: Yes Hx Cholecystectomy: Yes - Family History Family history: no significant - Social History Smoking Status: Never Smoker Substance Use Type: None (denies illicit drug use) - Medications Home Medications: Home Medications Medication Instructions Recorded Confirmed Last Taken Type Cyanocobalamin 1,000 1000units SUB-Q Q4W 05/13/16 07/06/17 06/04/17 History Spironolact/Hctz Tab [Aldactazide 25 tab PO DAILY 05/13/16 07/06/17 05/12/16 History 25-25 Tab] 25 Gabapentin [Neurontin] 300 mg PO BID 07/06/17 07/06/17 Unknown History Naproxen Sodium [Aleve TAB] 220 mg PO Q8H PRN 07/06/17 07/06/17 Unknown History traMADol [Ultram 50 MG tab] 50 mg PO Q6HR PRN 07/06/17 07/06/17 Unknown History Aspirin EC [Aspirin Enteric Coated 325 mg PO QDAY #30 tablet 07/07/17 Unknown Rx TAB] AtorvaSTATin [Lipitor] 20 mg PO QHS #30 tab 07/07/17 Unknown Rx Famotidine [Pepcid] 20 mg PO BID #30 tablet 07/07/17 Unknown Rx Metoprolol [Lopressor TAB] 50 mg PO BID #60 tablet 07/07/17 Unknown Rx ED Review of Systems ROS: Stated complaint: CHEST PAIN Other details as noted in HPI Constitutional: diaphoresis Eyes: denies: eye pain ENT: denies: throat pain Respiratory: shortness of breath Cardiovascular: chest pain, palpitations Endocrine: no symptoms reported Gastrointestinal: nausea. denies: vomiting Genitourinary: denies: dysuria Musculoskeletal: back pain Neurological: denies: headache Physical Exam - Physical Exam Vital Signs: Vital Signs 02/16/19 02/16/19 04:12 04:20 Pulse Rate 152 H Respiratory 20 Rate Blood Pressure 188/130 Physical Exam: GENERAL: The patient is well-developed well-nourished female lying on stretcher appearing to be in moderate discomfort HEENT: Normocephalic. Atraumatic. Extraocular motions are intact. Patient has moist mucous membranes. NECK: Supple. Trachea midline CHEST/LUNGS: Clear to auscultation. There is no respiratory distress noted. HEART/CARDIOVASCULAR: Irregularly irregular. There is tachycardia. There is no gallop rub or murmur. ABDOMEN: Abdomen is soft, nontender. Patient has normal bowel sounds. There is no abdominal distention. SKIN: There is no rash. There is no edema. NEURO: The patient is awake, alert, and oriented. The patient is cooperative. The patient has normal speech MUSCULOSKELETAL: There is no evidence of acute injury. ED Course Vital Signs 02/16/19 02/16/19 04:12 04:20 Pulse Rate 152 H Respiratory 20 Rate Blood Pressure 188/130 - Reevaluation(s) Reevaluation #1: 02/16/19 04:36 Patient states her chest pain is decreased to approximately 6/10. Heart rate between 107-118 1 monitor. Will initiate diltiazem drip ED Medical Decision Making - Lab Data Result diagrams: 02/16/19 04:15 02/16/19 04:15 Laboratory Tests 02/16/19 02/16/19 02/16/19 04:15 04:15 04:15 WBC 7.5 RBC 5.04 H Hgb 13.1 Hct 38.0 MCV 75 L MCH 26 L MCHC 35 H RDW 18.2 H Plt Count 200 PT 13.6 INR 0.98 APTT 20.7 L Sodium Potassium Chloride Carbon Dioxide Anion Gap BUN Creatinine Estimated GFR BUN/Creatinine Ratio Glucose Calcium CK-MB (CK-2) 1.4 Troponin T TSH Free T4 02/16/19 02/16/19 04:15 04:15 WBC RBC Hgb Hct MCV MCH MCHC RDW Plt Count PT INR APTT Sodium 142 Potassium 3.1 L Chloride 102.8 Carbon Dioxide 20 L Anion Gap 22 BUN 11 Creatinine 0.6 L Estimated GFR > 60 BUN/Creatinine Ratio 18 Glucose 153 H Calcium 8.8 CK-MB (CK-2) Troponin T < 0.010 TSH 8.030 H Free T4 1.02 - EKG Data -: EKG Interpreted by Me Rate: tachycardia - EKG Data When compared to previous EKG there are: previous EKG unavailable Interpretation: other (A. fib rapid ventricular response of 151 bpm) - Radiology Data Radiology results: report reviewed (chest x-ray), image reviewed (chest x-ray) interpreted by me: Chest x-ray-no focal infiltrates, no pneumothorax [facility] [address] [place] [address] XRay Report Signed Patient: MAYO TRAN MR#: [id number] 7 : 1960 Acct:[id number] Age/Sex: 58 / F ADM Date: 02/16/19 Loc: ED Attending Dr: Ordering Physician: SANDEEP ESTEVES MD Date of Service: 02/16/19 Procedure(s): XR chest 1V ap Accession Number(s): [id number] cc: SANDEEP ESTEVES MD Fluoro Time In Minutes: PROCEDURE: XR CHEST 1V AP TECHNIQUE: A portable upright view the chest was submitted. HISTORY: chest pain COMPARISONS: None FINDINGS: The heart size a nd mediastinum appear normal. The lungs are not congested. There are no infiltrates or effusions. The skeletal structures do not show any acute changes. IMPRESSION: No acute cardiopulmonary process.. This document is electronically signed by Rigoberto Rodriguez MD., February 16 2019 04:41:58 AM ET Transcribed By: RB Dictated By: RIGOBERTO RODRIGUEZ MD Electronically Authenticated By: RIGOBERTO RODRIGUEZ MD Signed Date/Time: 02/16/19443 DD/ 4 TD/TT: 02/16/19434 - Differential Diagnosis ACS, A. fib with RVR, pericarditis, GERD Critical care attestation.: If time is entered above; I have spent that time in minutes in the direct care of this critically ill patient, excluding procedure time. ED Disposition Clinical Impression: Atrial fibrillation with rapid ventricular response, Chest pain, Hypokalemia Disposition: DC-09 OP ADMIT IP TO THIS HOSP Is pt being admited?: Yes Does the pt Need Aspirin: Yes Condition: Fair Instructions: Chest Pain (ED) Time of Disposition: 05:13 (hospitalist paged (Dr Cabrera))
[2019-02-16] MEDS ORDERED: ASPIRIN PO ONE (04:33)
[2019-02-16 04:38] LABS: Hemoglobin 13.1 gm/dl (10.1-14.3); Mean Corpuscular HGB Conc 35 % (30-34); Mean Corpuscular Volume 75 fl (79-97); Platelet Count 200 K/mm3 (140-440); Red Blood Count 5.04 M/mm3 (3.65-5.03); Red Cell Distribution Width 18.2 % (13.2-15.2)
--- NOTE | 2019-02-16 04:44 | XRay Report ---
PROCEDURE: XR CHEST 1V AP TECHNIQUE: A portable upright view the chest was submitted. HISTORY: chest pain COMPARISONS: None FINDINGS: The heart size and mediastinum appear normal. The lungs are not congested. There are no infiltrates o r effusions. The skeletal structures do not show any acute changes. IMPRESSION: No acute cardiopulmonary process.. This document is electronically signed by Rigoberto Rodriguez MD., February 16 2019 04:41:58 AM ET
[2019-02-16 04:45] LABS: INR 0.98 (0.87-1.13); Partial Thromboplastin Time 20.7 Sec. (24.2-36.6)
[2019-02-16 05:00] LABS: BUN/Creatinine Ratio 18; Blood Urea Nitrogen 11 mg/dL (7-17); Calcium 8.8 mg/dL (8.4-10.2); Hemolysis Index 7
[2019-02-16] MEDS ORDERED: CARDIZEM 100 MG in D5W 80 ML IV SCH (05:00)
[2019-02-16 05:01] LABS: Creatine Kinase MB 1.4 ng/mL (0.0-4.0)
[2019-02-16] MEDS ORDERED: K-DUR PO ONE (05:01)
[2019-02-16 05:11] LABS: Free T4 (Free Thyroxine) 1.02 ng/dL (0.76-1.46)
[2019-02-16] MEDS ORDERED: ZOFRAN IV PRN (06:20)
[2019-02-16] MEDS ORDERED: HEPARIN 10,000 UNITS/10 ML IV ONE (06:24)
[2019-02-16 06:26] LABS: Basophils % (Manual) 0 % (0.0-1.8); Eosinophils % (Manual) 0 % (0.0-4.3); Total Cells Counted 100
[2019-02-16 06:27] LABS: Giant Platelets Few; Target Cells Few
[2019-02-16] MEDS ORDERED: CYANOCOBALAMIN SUB-Q SCH (06:30)
[2019-02-16] MEDS: NITROSTAT SL PRN ×2 (06:39→06:55)
[2019-02-16 06:57] LABS: Hematocrit 36.1 % (30.3-42.9); Hemoglobin 12.7 gm/dl (10.1-14.3)
[2019-02-16 07:08] LABS: INR 1.03 (0.87-1.13)
[2019-02-16 07:09] LABS: Partial Thromboplastin Time 23.3 Sec. (24.2-36.6)
[2019-02-16] MEDS: HEPARIN/ 0.45% NACL-25,000 UNIT/500 ML 25,000 UNIT/500 ML BAG IV SCH (07:09)
--- NOTE | 2019-02-16 08:53 | Consultation ---
History of Present Illness Consult date: 02/16/19 Requesting physician: MIRIAM PHILLIPS Reason for consult: chest pain, other (atrial fibrillation with RVR) History of present illness: Patient states a pressure tightness prior to arrival she developed a constant sub-sternal chest pressure as well as palpitations. Patient states she has had shortness of breath, diaphoresis and nausea without vomiting's associate with chest pain. Patient states she has a history of fibrillation but has not taken her Xarelto for the last 6 months secondary to being unable to afford the medication. Patient gives her pain score 10/10. She was started on a cardizem and heparin for atrial fibrillation . I have been consulted for critical care management and to facilitate her admis meera to the ICU. Patient was seen and examined in the ER. At this time she denies any chest pain, no palpitations, no shortness of breath. No fevers or chills. ROS: Stated complaint: CHEST PAIN Other details as noted in HPI Constitutional: diaphoresis Eyes: denies: eye pain ENT: denies: throat pain Respiratory: shortness of breath Cardiovascular: chest pain, palpitations Endocrine: no symptoms reported Gastrointestinal: nausea. denies: vomiting Genitourinary: denies: dysuria Musculoskeletal: back pain Neurological: denies: headache - Past Medical History Previous Medical History?: Yes Hx Hypertension: Yes Hx Congestive Heart Failure: Yes Hx Arthritis: Yes - Surgical History Past Surgical History?: Yes Hx Cholecystectomy: Yes - Family History Family history: no significant - Social History Smoking Status: Never Smoker Substance Use Type: None (denies illicit drug use) Medications and Allergies Allergies Allergy/AdvReac Type Severity Reaction Status Date / Time morphine Allergy Itching Verified 02/16/19 05:40 Home Medications Medication Instructions Recorded Confirmed Last Taken Type traMADol [Ultram 50 MG tab] 50 mg PO Q6HR PRN 07/06/17 02/16/19 Unknown History Baclofen 20 mg PO BID PRN 02/16/19 02/16/19 Unknown History Aspirin [Adult Aspirin] 81 mg PO DAILY #30 tablet. 02/19/19 Unknown Rx AtorvaSTATin [Lipitor] 20 mg PO QHS tablet 02/19/19 Unknown Rx Famotidine [Pepcid] 20 mg PO BID tablet 02/19/19 Unknown Rx Gabapentin [Neurontin] 300 mg PO BID capsule 02/19/19 Unknown Rx Metoprolol [Lopressor TAB] 50 mg PO BID tablet 02/19/19 Unknown Rx Spironolactone [Aldactone] 25 mg PO DAILY tablet 02/19/19 Unknown Rx Warfarin [Coumadin] 5 mg PO QDAY #30 tablet 02/19/19 Unknown Rx dilTIAZem CD [Cardizem CD] 180 mg PO QDAY #30 capsule 02/19/19 Unknown Rx hydroCHLOROthiazide [HCTZ] 25 mg PO DAILY tablet 02/19/19 Unknown Rx Active Meds: Active Medications Acetaminophen (Tylenol) 650 mg PO Q4H PRN PRN Reason: Headache Aspirin (Aspirin) 325 mg PO QDAY DIANA Atorvastatin Calcium (Lipitor) 20 mg PO QHS DIANA Famotidine (Pepcid) 20 mg PO BID DIANA Gabapentin (Neurontin) 300 mg PO BID DIANA Hydrochlorothiazide (Hctz) 25 mg PO DAILY [facility] Diltiazem HCl 100 mg/ Dextrose 100 mls @ 5 mls/hr IV DIRECT DIANA; Protocol Last Infusion: 02/16/19 05:41 Dose: 10 mg/hr, 10 mls/hr Documented by: Potassium Chloride (Kcl 10meq/100ml) 10 meq in 100 mls @ 100 mls/hr IV Q1H [facility] Stop: 02/16/19 08:59 Heparin Sodium/Sodium Chloride (Heparin/ 0.45% Nacl-25,000 Unit/500 Ml) 25,000 unit in 500 mls @ 30 mls/hr IV TITR DIANA; Protocol Last Admin: 02/16/19 07:09 Dose: 1,500 units/hr, 30 mls/hr Documented by: Metoprolol Tartrate (Lopressor) 50 mg PO BID [facility] Miscellaneous Medication (Cyanocobalamin) 1,000 1000units SUB-Q Q4W [facility] Nitroglycerin (Nitrostat) 0.4 mg SL .Q5MIN PRN PRN Reason: Chest Pain Last Admin: 02/16/19 06:55 Dose: 0.4 mg Documented by: Nitroglycerin (Nitro-Bid 2%) 0.5 inch TP QIDNTG [facility]; Protocol Ondansetron HCl (Zofran) 4 mg IV Q4H PRN PRN Reason: Nausea And Vomiting Spironolactone (Aldactone) 25 mg PO DAILY [facility] Tramadol HCl (Ultram) 50 mg PO Q6HR PRN PRN Reason: Pain Physical Examination Vital signs: Vital Signs Pulse BP 152 H 188/130 02/16/19 04:12 02/16/19 04:12 Constitutional: Well-nourished well-developed. In no distress Head: Normocephalic atraumatic Eyes: Pupils are equal round and reactive to light Nose: No enlarged turbinates, no septal deviation. Mouth: Moist mucous membranes. Neck: Supple no thyromegaly. No bruit. No JVD Heart: Irregularly irregular heart rate. No rubs murmurs or gallop Lungs: Clear to auscultation bilaterally. no rales or rhonchi Abdomen: Soft, nontender. Bowel sound are present. Extremities: No edema, no cyanosis, no clubbing. Neuro: Alert oriented Oriented x3. No focal sensory or motor deficit. Skin: No rashes or hyperpigmented spots Musculoskeletal system: No joint pain or swelling Hematological: No petechia or subcutanous hemorrhages. Immunological: No multiple septic spots on the skin Lymphatic: No generalized lymphadenopathy Psychiatry: Euthymic. Calm. Results - Laboratory Findings CBC and BMP: 02/19/19 05:31 02/19/19 05:31 PT/INR, D-dimer PT 14.1 Sec. (12.2-14.9) 02/16/19 06:43 INR 1.03 (0.87-1.13) 02/16/19 06:43 Abnormal lab findings: Abnormal Labs 02/16/19 02/16/19 02/16/19 04:15 04:15 04:15 RBC 5.04 H MCV 75 L MCH 26 L MCHC 35 H RDW 18.2 H Seg Neuts % (Manual) 71.0 H Lymphocytes % (Manual) 12.0 L Monocytes % (Manual) 13.0 H Lymphocytes # (Manual) 0.9 L Monocytes # (Manual) 1.0 H APTT 20.7 L Potassium 3.1 L Carbon Dioxide 20 L Creatinine 0.6 L Glucose 153 H TSH 02/16/19 02/16/19 04:15 06:43 RBC MCV MCH MCHC RDW Seg Neuts % (Manual) Lymphocytes % (Manual) Monocytes % (Manual) Lymphocytes # (Manual) Monocytes # (Manual) APTT 23.3 L Potassium Carbon Dioxide Creatinine Glucose TSH 8.030 H Assessment and Plan Atrial Fibrillation with RVR Chest Pain Non-obstructive CAD by [facility] 12/2017 HTN Hypokalemia Hyperglycemia CAD Thrombocytopenia Obesity -Patient is currently on cardizem infusion and heparin. -Give oral anti-arrthymics and wean off cardizem infusion -Continue anticoagulation -Accucheck with glycemic control -Steady carb diet -Get thyroid studies and treat as indicated - weight loss and life style modification - outpatient sleep clinic evaluation especially in light of A-fib - Replace electrolytes as indicated, keep Potassium at 4mEq/dl and Magnesium at 2 - continue therapies for reflux -Serial troponin -Trend platelet count and monitor for bleeding Discussed the need for adherence to medical therapies Wean off cardizem and transfer to telemetry floor. Thank you for the consult. Care plan discussed with the patient and with ED staff
[2019-02-16] MEDS ORDERED: ULTRAM ONE ×3 (09:09→19:23)
[2019-02-16] MEDS ORDERED: ASPIRIN ONE (09:09)
[2019-02-16] MEDS: ASPIRIN PO SCH (09:10)
[2019-02-16] MEDS: ULTRAM PO PRN ×2 (09:10→19:25)
[2019-02-16] MEDS ORDERED: SPIRONOLACT PO SCH (10:00)
[2019-02-16] MEDS ORDERED: HCTZ PO SCH (10:00)
--- NOTE | 2019-02-16 10:22 | History and Physical Report ---
CHIEF COMPLAINT: Chest pain. Other complaint includes palpitations. HISTORY OF PRESENT ILLNESS: The patient is a 58-year-old female with past history of atrial fibrillation, hypertension, and congestive heart failure presenting with chest pain, which appears as tightness in the chest located in the retrosternal area and precordial area and associated with palpitation. Also, the chest pain is associated with shortness of breath, diaphoresis, nausea, but no vomiting. There is no history of fever or chills and no history of cough. The patient used to be on Xarelto that was stopped about 6 months ago because she could not afford it and presented for evaluation. PAST MEDICAL HISTORY: Pertinent for hypertension, congestive heart failure, atrial fibrillation, and arthritis. PAST SURGICAL HISTORY: Pertinent for cholecystectomy. FAMILY HISTORY: Noncontributory. SOCIAL HISTORY: The patient does not smoke, does not drink alcohol, and does not use illicit drugs. MEDICATIONS: The patient is on aspirin 325 mg by mouth daily, Lipitor 20 mg by mouth at bedtime, cyanocobalamin 1000 units subQ every 4 weeks. Also, the patient is on famotidine 20 mg by mouth twice daily, gabapentin 300 mg by mouth twice daily. The patient is also on metoprolol 50 mg by mouth twice daily and on Naprosyn sodium 220 mg by mouth every 8 hours. The patient is on spironolactone/HCTZ 25 mg and 25 mg 1 by mouth daily and also the patient is on tramadol 50 mg by mouth every 6 hours as needed for pain. ALLERGIES: The patient is allergic to MORPHINE. REVIEW OF SYSTEMS: CONSTITUTIONAL: There is no fever, no chills. Diaphoresis present. HEENT: There is no headache or sore throat. CARDIOVASCULAR SYSTEM: Chest pain is present. No orthopnea. RESPIRATORY SYSTEM: Shortness of breath is present with no cough. GASTROINTESTINAL SYSTEM: There is nausea, but no vomiting. No abdominal pain, diarrhea or constipation. NEUROLOGICAL SYSTEM: There is no numbness, no dizziness, no altered mental status. MUSCULOSKELETAL SYSTEM: There is no joint pain or swelling. DERMATOLOGICAL SYSTEM: There is no skin rash or itching. GENITOURINARY SYSTEM: There is no dysuria, hematuria, or flank pain. Rest of system review is normal. PHYSICAL EXAMINATION: GENERAL: At the time of exam, the patient was found to be alert, oriented x 3, and not in acute distress. VITAL SIGNS: At the initial time of presentation show normal temperature with pulse of 152, respirations 20, blood pressure 188/130 and the blood pressure later came down to 131/92. The patient's O2 sat runs between 93-96 on oxygen. HEENT: Shows pupils to be equal, round, and reactive to light and accommodating. Extraocular muscles are intact. NECK: Supple with no JVD or carotid bruit. CARDIOVASCULAR SYSTEM: Shows first and second heart sounds with irregularly irregular rhythm. RESPIRATORY SYSTEM: Shows good air entry on both sides of the lungs with no abnormal breath sounds. GASTROINTESTINAL SYSTEM: Shows abdomen to be full, soft, nontender with no organomegaly or rigidity. NEUROLOGIC: Shows no focal deficit. MUSCULOSKELETAL SYSTEM: Shows no joint swelling or tenderness. DERMATOLOGICAL SYSTEM: Shows no skin rash. GENITOURINARY SYSTEM: Showing no costovertebral angle tenderness. PERTINENT LABORATORY AND IMAGING STUDIES: The patient had a chest x-ray done that shows no acute cardiopulmonary lesion. The patient's lab results show CBC with normal white count, normal hemoglobin, and normal hematocrit with unremarkable CBC differential. Coagulation studies were unremarkable. Chemistry showed low potassium of 3.1, low CO2 of 20 and elevated TSH of 8.0 with normal free T4. The patient's troponin level came back normal. DIAGNOSES: 1. Atrial fibrillation with rapid ventricular rate. 2. Chest pain. 3. Hypokalemia. PLAN OF CARE: 1. The patient will be admitted to ICU because of IV Cardizem and the patient will continue Cardizem drip IV started in the Emergency Room. 2. The patient will have Cardiology consult with Dr. Sotomayor because of chest pain with atrial fibrillation with rapid ventricular response. 3. The patient will have critical care consult with Dr. Adkins for ICU admission. 4. The patient will have cardiac enzymes involving troponin, total CK and CK-MB checked every 6 hours x 2 more level. 5. The patient will have IV potassium chloride 20 mEq in 100 mL of normal saline running over 1-2 hours. 6. The patient will be on nitro paste half inch to anterior chest wall q.i.d. and will be on sublingual nitroglycerin 0.4 mg q. 5 minutes as needed for chest pain. 7. The patient will be on IV Zofran 4 mg every 8 hours as needed for nausea and vomiting and will be on Tylenol 650 mg by mouth every 4 hours as needed for fever and headache. 8. The patient will be on aspirin 325 mg by mouth daily and will be on his home medications as shown in the medication reconciliation section. 9. The patient will be on heparin drip protocol. 10. The patient will be on oxygen by nasal cannula 2 liters per minute. JOB# [id number] OCN/NTS
[2019-02-16] MEDS: KCL 10MEQ/100ML 10 MEQ/100 ML BAG IV SCH ×2 (10:47→11:51)
[2019-02-16] MEDS ORDERED: NACL 0.9% 1000 ML 1,000 ML ONE (10:51)
[2019-02-16] MEDS ORDERED: NACL 0.9% 1000 ML 1,000 ML IV SCH (11:00)
[2019-02-16] MEDS ORDERED: HCTZ ONE (11:12)
[2019-02-16] MEDS ORDERED: PEPCID ONE ×2 (11:12→22:43)
[2019-02-16] MEDS ORDERED: LOPRESSOR ONE ×2 (11:13→22:43)
[2019-02-16] MEDS ORDERED: NEURONTIN ONE ×2 (11:13→22:43)
[2019-02-16] MEDS: LOPRESSOR PO SCH ×2 (11:15→23:02)
[2019-02-16] MEDS: HCTZ PO SCH (11:15)
[2019-02-16] MEDS: NEURONTIN PO SCH ×2 (11:15→23:02)
[2019-02-16] MEDS: PEPCID PO SCH ×2 (11:15→23:02)
[2019-02-16] MEDS: NITRO-BID 2% TP SCH ×2 (11:16→18:30)
--- NOTE | 2019-02-16 11:39 | Consultation ---
History of Present Illness Consult date: 02/16/19 Consult reason: atrial fibrillation History of present illness: Patient is a 58 year old woman who presents to the emergency department with palpitations. She was found to be in rapid atrial fibrillation, currently on intravenous Diltiazem. Initial labs shows a potassium of 3.1. TSH of 8.03. On my assessment, she denies chest pain, unusual shortness of breath and dizziness. She has not had a syncopal episode. Patient is known to [facility] and is followed with Dr Rutledge. She has a history of paroxysmal atrial fibrillation, noncompliant with her medications including xarelto and diltiazem. Her latest cardiac workup was done in 2017. She underwent a cardiac cath that reports no significant coronary artery disease, normal left ventricular ejection fraction 55% by echocardiogram. Medications and Allergies Allergies Allergy/AdvReac Type Severity Reaction Status Date / Time morphine Allergy Itching Verified 02/16/19 05:40 Home Medications Medication Instructions Recorded Confirmed Last Taken Type traMADol [Ultram 50 MG tab] 50 mg PO Q6HR PRN 07/06/17 02/16/19 Unknown History Baclofen 20 mg PO BID PRN 02/16/19 02/16/19 Unknown History Ibuprofen [Motrin] 800 mg PO TID PRN 02/16/19 02/16/19 Unknown History Spironolactone [Aldactone] 25 mg PO QAM 02/16/19 02/16/19 Unknown History methylPREDNISolone [Medrol Dose 1 dose PO TITRATE 02/16/19 02/16/19 Unknown History Kole] Active Meds: Active Medications Acetaminophen (Tylenol) 650 mg PO Q4H PRN PRN Reason: Headache Aspirin (Aspirin) 325 mg PO QDAY [facility] Last Admin: 02/16/19 09:10 Dose: 325 mg Documented by: Atorvastatin Calcium (Lipitor) 20 mg PO QHS DIANA Famotidine (Pepcid) 20 mg PO BID [facility] Last Admin: 02/16/19 11:15 Dose: 20 mg Documented by: Gabapentin (Neurontin) 300 mg PO BID [facility] Last Admin: 02/16/19 11:15 Dose: 300 mg Documented by: Hydrochlorothiazide (Hctz) 25 mg PO DAILY [facility] Last Admin: 02/16/19 11:15 Dose: 25 mg Documented by: Diltiazem HCl 100 mg/ Dextrose 100 mls @ 5 mls/hr IV DIRECT DIANA; Protocol Last Infusion: 02/16/19 05:41 Dose: 10 mg/hr, 10 mls/hr Documented by: Heparin Sodium/Sodium Chloride (Heparin/ 0.45% Nacl-25,000 Unit/500 Ml) 25,000 unit in 500 mls @ 30 mls/hr IV TITR [facility]; Protocol Last Admin: 02/16/19 07:09 Dose: 1,500 units/hr, 30 mls/hr Documented by: Sodium Chloride (Nacl 0.9% 1000 Ml) 1,000 mls @ 42 mls/hr IV DIRECT DIANA Last Admin: 02/16/19 10:54 Dose: 42 mls/hr Documented by: Metoprolol Tartrate (Lopressor) 50 mg PO BID DIANA Last Admin: 02/16/19 11:15 Dose: 50 mg Documented by: Miscellaneous Medication (Cyanocobalamin) 1,000 1000units SUB-Q Q4W DIANA Nitroglycerin (Nitrostat) 0.4 mg SL .Q5MIN PRN PRN Reason: Chest Pain Last Admin: 02/16/19 06:55 Dose: 0.4 mg Documented by: Nitroglycerin (Nitro-Bid 2%) 0.5 inch TP QIDNTG [facility]; Protocol Last Admin: 02/16/19 11:16 Dose: Not Given Documented by: Ondansetron HCl (Zofran) 4 mg IV Q4H PRN PRN Reason: Nausea And Vomiting Spironolactone (Aldactone) 25 mg PO DAILY [facility] Tramadol HCl (Ultram) 50 mg PO Q6HR PRN PRN Reason: Pain Last Admin: 02/16/19 09:10 Dose: 50 mg Documented by: Physical Examination Vital Signs Pulse BP 152 H 188/130 02/16/19 04:12 02/16/19 04:12 General appearance: no acute distress HEENT: Positive: PERRL Cardiac: Positive: irregularly irregular Lungs: Positive: Decreased Breath Sounds Neuro: Positive: Grossly Intact Extremities: Absent: edema Results 02/16/19 06:43 02/16/19 04:15 Cardiac Enzymes 02/16/19 Range/Units 04:15 CK-MB (CK-2) 1.4 (0.0-4.0) ng/mL Coagulation 02/16/19 02/16/19 Range/Units 04:15 06:43 PT 13.6 14.1 (12.2-14.9) Sec. INR 0.98 1.03 (0.87-1.13) APTT 20.7 L 23.3 L (24.2-36.6) Sec. CBC 19 02/16/19 Range/Units 04:15 06:43 WBC 7.5 (4.5-11.0) K/mm3 RBC 5.04 H (3.65-5.03) M/mm3 Hgb 13.1 12.7 (10.1-14.3) gm/dl Hct 38.0 36.1 (30.3-42.9) % Plt Count 200 207 (140-440) K/mm3 Comprehensive Metabolic Panel 02/16/19 Range/Units 04:15 Sodium 142 (137-145) mmol/L Potassium 3.1 L (3.6-5.0) mmol/L Chloride 102.8 (98-107) mmol/L Carbon Dioxide 20 L (22-30) mmol/L BUN 11 (7-17) mg/dL Creatinine 0.6 L (0.7-1.2) mg/dL Glucose 153 H (65-100) mg/dL Calcium 8.8 (8.4-10.2) mg/dL Assessment and Plan Atrial fibrillation, paroxysmal noncompliant with medications TSH 8.0 Hypokalemia No significant CAD by [facility] 07/2017. Normal LVEF by echo 07/2017.
[2019-02-16] MEDS: ALDACTONE PO SCH ×2 (12:18)
[2019-02-16] MEDS ORDERED: TYLENOL ONE ×2 (12:41→18:49)
[2019-02-16] MEDS: TYLENOL PO PRN ×2 (12:43→19:25)
[2019-02-16] MEDS ORDERED: CORDARONE 150 MG in D5W 100 ML IV ONE (13:30)
[2019-02-16] MEDS: CARDIZEM PO SCH ×2 (14:44→22:37)
[2019-02-16 16:56] LABS: Creatine Kinase MB 1.3 ng/mL (0.0-4.0)
[2019-02-16] MEDS ORDERED: COUMADIN PO SCH (17:00)
[2019-02-16] MEDS: CORDARONE PO SCH (23:07)
[2019-02-16 23:49] LABS: Creatine Kinase MB < 1.0 ng/mL (0.0-4.0)
[2019-02-17] MEDS ORDERED: HEPARIN/ 0.45% NACL-25,000 UNIT/500 ML 25,000 UNIT/500 ML BAG ONE (04:10)
[2019-02-17] MEDS: HEPARIN/ 0.45% NACL-25,000 UNIT/500 ML 25,000 UNIT/500 ML BAG IV SCH (04:34)
[2019-02-17 04:36] LABS: INR 1.13 (0.87-1.13)
[2019-02-17] MEDS ORDERED: ULTRAM ONE (04:52)
[2019-02-17] MEDS: ULTRAM PO PRN (04:53)
[2019-02-17] MEDS: NITRO-BID 2% TP SCH ×3 (06:13→16:06)
[2019-02-17] MEDS: CARDIZEM PO SCH ×3 (06:19→21:24)
[2019-02-17] MEDS ORDERED: DIPRIVAN 10 MG/ML IV ONE ×2 (10:23)
[2019-02-17] MEDS ORDERED: XYLOCAINE MPF 2% ONE (10:24)
--- NOTE | 2019-02-17 10:43 | Progress Note ---
Assessment and Plan Patient awake. Resting on room air.O2 saturation 94%.Patient came in with chest pain and atrial fibrillation. Patient started on I/V Heparin Patient says no chest pain now. No acute respiratory distress. - Patient Problems (1) Chest pain Current Visit: Yes Status: Acute Plan to address problem: Chest pain imoroved. Patient is on I/V Heparin. Patients Troponin level not elevated. Management as per Cardiology. (2) Atrial fibrillation with rapid ventricular response Current Visit: Yes Status: Acute Plan to address problem: Patient is on I/V Heparin. Management as per cardiology. (3) GERD (gastroesophageal reflux disease) Current Visit: No Status: Acute Qualifiers: Esophagitis presence: without esophagitis Qualified Code(s): K21.9 - Gastro-esophageal reflux disease without esophagitis Plan to address problem: Patient is on Famotidine. (4) Chronic diastolic CHF (congestive heart failure) Current Visit: No Status: Chronic Plan to address problem: Management as per cardiology. Subjective Date of service: 02/17/19 Interval history: Patient awake. Resting on room air.O2 saturation 94%.Patient came in with chest pain and atrial fibrillation. Patient started on I/V Heparin Patient says no chest pain now. No acute respiratory distress. Objective Vital Signs - 12hr 02/16/19 02/16/19 02/16/19 22:45 23:00 23:02 Pulse Rate 96 H 102 H 100 H Pulse Rate [ Apical] Respiratory 20 14 Rate Blood Pressure 143/87 138/91 138/91 Blood Pressure [Left] O2 Sat by Pulse 97 96 Oximetry 02/16/19 02/16/19 02/16/19 23:16 23:30 23:45 Pulse Rate 94 H 93 H 94 H Pulse Rate [ Apical] Respiratory 18 24 13 Rate Blood Pressure 126/83 143/96 119/82 Blood Pressure [Left] O2 Sat by Pulse 95 96 97 Oximetry 02/16/19 02/17/19 02/17/19 23:58 00:00 00:03 Pulse Rate 90 80 80 Pulse Rate [ Apical] Respiratory 25 H 22 18 Rate Blood Pressure 143/93 136/85 136/85 Blood Pressure [Left] O2 Sat by Pulse 98 95 98 Oximetry 02/17/19 02/17/19 02/17/19 00:09 00:15 00:30 Pulse Rate 84 72 Pulse Rate [ 80 Apical] Respiratory 22 19 21 Rate Blood Pressure 133/94 127/77 Blood Pressure [Left] O2 Sat by Pulse 95 96 95 Oximetry 02/17/19 02/17/19 02/17/19 00:45 01:00 01:15 Pulse Rate 80 69 71 Pulse Rate [ Apical] Respiratory 20 21 21 Rate Blood Pressure 122/79 118/70 111/72 Blood Pressure [Left] O2 Sat by Pulse 95 95 94 Oximetry 02/17/19 02/17/19 02/17/19 01:30 01:45 02:00 Pulse Rate 64 65 76 Pulse Rate [ Apical] Respiratory 19 20 20 Rate Blood Pressure 112/79 108/80 111/81 Blood Pressure [Left] O2 Sat by Pulse 94 94 94 Oximetry 02/17/19 02/17/19 02/17/19 02:15 02:30 02:45 Pulse Rate 65 66 67 Pulse Rate [ Apical] Respiratory 18 18 20 Rate Blood Pressure 119/80 118/81 128/82 Blood Pressure [Left] O2 Sat by Pulse 95 94 91 Oximetry 02/17/19 02/17/19 02/17/19 03:00 03:15 03:30 Pulse Rate 77 72 85 Pulse Rate [ Apical] Respiratory 14 20 23 Rate Blood Pressure 119/90 122/77 116/81 Blood Pressure [Left] O2 Sat by Pulse 96 96 94 Oximetry 02/17/19 02/17/19 02/17/19 03:45 04:00 04:53 Pulse Rate 84 73 Pulse Rate [ Apical] Respiratory 19 15 16 Rate Blood Pressure 119/82 99/67 Blood Pressure [Left] O2 Sat by Pulse 98 98 Oximetry 02/17/19 02/17/19 02/17/19 05:53 06:19 09:39 Pulse Rate 86 92 H Pulse Rate [ Apical] Respiratory 16 16 Rate Blood Pressure 133/89 Blood Pressure 117/72 [Left] O2 Sat by Pulse 96 Oximetry Constitutional: no acute distress, alert Eyes: non-icteric Neck: supple, no lymphadenopathy Ascultation: Bilateral: diminished breath sounds Cardiovascular: irregular rhythm Gastrointestinal: normoactive bowel sounds, soft, non-tender Integumentary: normal Extremities: no cyanosis, no edema Neurologic: normal mental status, non-focal exam, pupils equal and round, CN II- XII normal Psychiatric: mood appropriate CBC and BMP: 02/16/19 06:43 02/16/19 04:15 ABG, PT/INR, D-dimer: PT/INR, D-dimer PT 15.2 Sec. (12.2-14.9) H 02/17/19 03:52 INR 1.13 (0.87-1.13) 02/17/19 03:52 Abnormal lab findings: Abnormal Labs 02/16/19 02/16/19 02/16/19 04:15 04:15 04:15 RBC 5.04 H MCV 75 L MCH 26 L MCHC 35 H RDW 18.2 H Seg Neuts % (Manual) 71.0 H Lymphocytes % (Manual) 12.0 L Monocytes % (Manual) 13.0 H Lymphocytes # (Manual) 0.9 L Monocytes # (Manual) 1.0 H PT APTT 20.7 L Potassium 3.1 L Carbon Dioxide 20 L Creatinine 0.6 L Glucose 153 H TSH 02/16/19 02/16/19 02/17/19 04:15 06:43 03:52 RBC MCV MCH MCHC RDW Seg Neuts % (Manual) Lymphocytes % (Manual) Monocytes % (Manual) Lymphocytes # (Manual) Monocytes # (Manual) PT 15.2 H APTT 23.3 L Potassium Carbon Dioxide Creatinine Glucose TSH 8.030 H Chest x-ray: report reviewed (No acute cardiopulmonary process.), image reviewed
[2019-02-17] MEDS ORDERED: ASPIRIN ONE (10:44)
[2019-02-17] MEDS ORDERED: NEURONTIN ONE (10:44)
[2019-02-17] MEDS ORDERED: LOPRESSOR ONE (10:44)
[2019-02-17] MEDS ORDERED: HCTZ ONE (10:44)
[2019-02-17] MEDS ORDERED: PEPCID ONE (10:44)
[2019-02-17] MEDS: HCTZ PO SCH (10:47)
[2019-02-17] MEDS: LOPRESSOR PO SCH ×2 (10:47→21:23)
[2019-02-17] MEDS: ASPIRIN PO SCH (10:47)
[2019-02-17] MEDS: PEPCID PO SCH ×2 (10:48→21:23)
[2019-02-17] MEDS: NEURONTIN PO SCH ×2 (10:48→21:23)
[2019-02-17] MEDS ORDERED: HURRICAINE ONE 20% TOPICAL SPRAY MM NR (11:00)
--- NOTE | 2019-02-17 11:51 | Progress Note ---
Assessment and Plan Atrial fibrillation, persists s/t to noncompliant with medications TSH 8.0 initiated on warfarin for oral anticoagulation Hypokalemia No significant CAD by [facility] 07/2017. Normal LVEF by echo 07/2017. Recommendations: Continue diltiazem and amiodarone for atrial fibrillation rate control. Continue oral anticoagulation with warfarin. The patient states that she is unable to afford a new oral anticoagulant. Stable cardiac conde for discharge home today. Patient will follow up with [facility] as scheduled March 01 at 220p. Subjective Date of service: 02/17/19 Interval history: Patient denies chest pain, shortness of breath and palpitations. Patient refused planned CINDY/cardioversion today. Afib with a well controlled ventricular rate on telemetry. Objective Vital Signs Temp Pulse Pulse Resp BP BP Pulse Ox 02/17/19 10:49 137/97 02/17/19 10:47 137/96 02/17/19 09:39 92 H 16 117/72 96 02/17/19 06:19 86 133/89 02/17/19 05:53 16 02/17/19 04:53 16 02/17/19 04:00 73 15 99/67 98 02/17/19 03:45 84 19 119/82 98 02/17/19 03:30 85 23 116/81 94 02/17/19 03:15 72 20 122/77 96 02/17/19 03:00 77 14 119/90 96 02/17/19 02:45 67 20 128/82 91 02/17/19 02:30 66 18 118/81 94 02/17/19 02:15 65 18 119/80 95 02/17/19 02:00 76 20 111/81 94 02/17/19 01:45 65 20 108/80 94 02/17/19 01:30 64 19 112/79 94 02/17/19 01:15 71 21 111/72 94 02/17/19 01:00 69 21 118/70 95 02/17/19 00:45 80 20 122/79 95 02/17/19 00:30 72 21 127/77 95 02/17/19 00:15 84 19 133/94 96 02/17/19 00:09 80 22 95 02/17/19 00:03 80 18 136/85 98 02/17/19 00:00 80 22 136/85 95 02/16/19 23:58 90 25 H 143/93 98 19 23:45 94 H 13 119/82 97 19 23:30 93 H 24 143/96 96 19 23:16 94 H 18 126/83 95 02/16/19 23:02 100 H 138/91 02/16/19 23:00 102 H 14 138/91 96 02/16/19 22:45 96 H 20 143/87 97 02/16/19 22:37 105 H 147/93 02/16/19 22:30 102 H 21 148/98 95 02/16/19 22:22 103 H 147/93 95 02/16/19 21:46 111 H 30 H 143/93 95 02/16/19 21:30 98 H 21 138/104 96 02/16/19 21:15 101 H 25 H 135/96 94 02/16/19 21:00 88 22 128/86 93 02/16/19 20:59 98.7 F 02/16/19 20:45 93 H 19 137/93 96 02/16/19 20:30 93 H 23 136/99 91 02/16/19 20:25 16 02/16/19 20:15 87 18 113/95 96 02/16/19 20:00 97 H 28 H 120/99 97 19 19:45 81 16 119/76 95 19 19:30 71 19 131/94 97 19 19:25 16 19 19:15 81 15 144/93 96 19 19:00 86 12 133/97 95 19 18:45 76 21 129/92 94 19 18:30 81 21 113/79 95 19 18:16 74 18 116/77 95 02/16/19 18:00 76 15 116/77 95 19 17:45 79 13 114/79 97 02/16/19 17:30 73 22 124/70 97 02/16/19 17:15 69 18 126/76 94 19 17:00 74 20 124/83 90 19 16:46 71 15 98/72 95 19 16:30 71 31 H 101/78 93 19 16:16 72 24 101/78 93 02/16/19 16:00 70 22 134/109 95 02/16/19 15:55 70 02/16/19 15:46 78 19 134/109 95 02/16/19 15:30 83 19 145/92 97 02/16/19 15:15 78 15 150/95 92 02/16/19 15:00 77 21 145/92 96 02/16/19 14:45 78 19 138/89 91 02/16/19 14:30 80 17 139/74 96 02/16/19 14:15 80 17 135/88 91 02/16/19 14:00 69 17 129/78 95 02/16/19 13:45 65 17 116/87 98 02/16/19 13:30 72 19 130/91 95 02/16/19 13:15 70 14 115/88 84 02/16/19 13:00 89 13 116/89 96 02/16/19 12:45 85 22 121/87 95 02/16/19 12:30 87 24 143/83 91 02/16/19 12:15 82 14 136/91 92 02/16/19 12:00 103 H 20 125/79 93 - Physical Examination General: No Apparent Distress HEENT: Positive: PERRL Cardiac: Positive: irregularly irregular Lungs: Positive: Decreased Breath Sounds Neuro: Positive: Grossly Intact Extremities: Absent: edema - Labs and Meds Cardiac Enzymes 02/16/19 02/16/19 Range/Units 15:42 22:38 CK-MB (CK-2) 1.3 < 1.0 (0.0-4.0) ng/mL Coagulation 02/17/19 Range/Units 03:52 PT 15.2 H (12.2-14.9) Sec. INR 1.13 (0.87-1.13)
[2019-02-17] MEDS: ALDACTONE PO SCH (12:26)
[2019-02-17] MEDS: CORDARONE PO SCH (12:28)
[2019-02-17] MEDS ORDERED: NITRO-BID 2% TP ONE (16:02)
[2019-02-17] MEDS ORDERED: CARDIZEM ONE (16:02)
--- NOTE | 2019-02-17 16:32 | Progress Note ---
Assessment and Plan - Pafib Patient was placed on Cardizem drip. Rate controlled. Reverted to normal sinus with him. Cartilage consulted. Patient placed on carvedilol, Cardizem. Anticoagulation with warfarin. - Chest pain Cardiac enzymes were normal 3 I had nl left heart cardiac catheterization on 07/2017 Echocardiogram of 2017 showed an ejection fraction of 50% - Hypokalemia We supplement. Recheck magnesium level - Elevated TSH at 8.0 However T4 was normal at 1.2. - Hyperglycemia Obtain A1c level Consistent carbohydrate diet - DVT prophylaxis with Lovenox and GI with Pepcid - Time spent during this encounter: 35 minutes Subjective Date of service: 02/17/19 Principal diagnosis: atrial fibrillation, Interval history: Shortness of breath. No more palpitations. Denies any chest pain. Objective - Exam Narrative Exam: Constitutional: Well-nourished well-developed. In no distress Head: Normocephalic atraumatic Eyes: Pupils are equal round and reactive to light Nose: No enlarged turbinates, no septal deviation. Mouth: Moist mucous membranes. Neck: Supple no thyromegaly. No bruit. No JVD Heart: Irregularly irregular heart rate. No rubs murmurs or gallop Lungs: Clear to auscultation bilaterally. no rales or rhonchi Abdomen: Soft, nontender. Bowel sound are present. Extremities: No edema, no cyanosis, no clubbing. Neuro: Alert oriented Oriented x3. No focal sensory or motor deficit. Skin: No rashes or hyperpigmented spots Musculoskeletal system: No joint pain or swelling Hematological: No petechia or subcutanous hemorrhages. Immunological: No multiple septic spots on the skin Lymphatic: No generalized lymphadenopathy Psychiatry: Euthymic. Calm. - Constitutional Vitals: Vital Signs - 12hr 02/17/19 02/17/19 02/17/19 04:45 04:53 05:00 Pulse Rate 73 75 Respiratory 17 16 20 Rate Blood Pressure 115/78 130/95 Blood Pressure [Left] O2 Sat by Pulse 99 Oximetry 02/17/19 02/17/19 02/17/19 05:15 05:30 05:45 Pulse Rate 80 73 81 Respiratory 14 14 19 Rate Blood Pressure 113/83 117/76 130/89 Blood Pressure [Left] O2 Sat by Pulse 98 92 97 Oximetry 02/17/19 02/17/19 02/17/19 05:53 06:00 06:15 Pulse Rate 87 87 Respiratory 16 18 25 H Rate Blood Pressure 127/86 133/89 Blood Pressure [Left] O2 Sat by Pulse 98 97 Oximetry 02/17/19 02/17/19 02/17/19 06:19 06:30 06:46 Pulse Rate 86 89 Respiratory 15 Rate Blood Pressure 133/89 127/80 127/80 Blood Pressure [Left] O2 Sat by Pulse 97 93 Oximetry 02/17/19 02/17/19 02/17/19 07:00 07:16 07:30 Pulse Rate 88 86 89 Respiratory 19 19 14 Rate Blood Pressure 127/80 127/80 127/80 Blood Pressure [Left] O2 Sat by Pulse 97 99 99 Oximetry 02/17/19 02/17/19 02/17/19 07:46 08:00 08:16 Pulse Rate 88 105 H 92 H Respiratory 12 15 12 Rate Blood Pressure 127/80 127/80 127/80 Blood Pressure [Left] O2 Sat by Pulse 99 99 97 Oximetry 02/17/19 02/17/19 02/17/19 08:30 08:46 09:00 Pulse Rate 103 H 93 H 99 H Respiratory 19 19 18 Rate Blood Pressure 127/80 127/80 127/80 Blood Pressure [Left] O2 Sat by Pulse 95 96 94 Oximetry 02/17/19 02/17/19 02/17/19 09:16 09:30 09:39 Pulse Rate 96 H 104 H 92 H Respiratory 12 19 16 Rate Blood Pressure 127/80 127/80 Blood Pressure 117/72 [Left] O2 Sat by Pulse 96 95 96 Oximetry 02/17/19 02/17/19 02/17/19 09:45 10:00 10:16 Pulse Rate 94 H 98 H 100 H Respiratory 18 20 24 Rate Blood Pressure 114/69 131/99 137/97 Blood Pressure [Left] O2 Sat by Pulse 90 92 95 Oximetry 02/17/19 02/17/19 02/17/19 10:30 10:46 10:47 Pulse Rate 94 H 95 H Respiratory 22 20 Rate Blood Pressure 131/99 131/99 137/96 Blood Pressure [Left] O2 Sat by Pulse 95 95 Oximetry 02/17/19 02/17/19 02/17/19 10:49 11:00 11:16 Pulse Rate 85 90 Respiratory 27 H 18 Rate Blood Pressure 137/97 137/97 Blood Pressure 137/97 [Left] O2 Sat by Pulse 96 95 Oximetry 02/17/19 02/17/19 02/17/19 11:30 11:46 12:00 Pulse Rate 91 H 90 94 H Respiratory 26 H 20 22 Rate Blood Pressure 137/97 137/97 137/97 Blood Pressure [Left] O2 Sat by Pulse 95 98 Oximetry 02/17/19 02/17/19 02/17/19 12:16 12:26 12:30 Pulse Rate 79 74 83 Respiratory 16 14 Rate Blood Pressure 134/85 134/85 134/85 Blood Pressure [Left] O2 Sat by Pulse 95 Oximetry 02/17/19 02/17/19 02/17/19 12:46 13:00 13:16 Pulse Rate 79 83 90 Respiratory 30 H 18 17 Rate Blood Pressure 105/66 114/66 105/66 Blood Pressure [Left] O2 Sat by Pulse 92 96 97 Oximetry 02/17/19 02/17/19 02/17/19 13:30 13:45 14:01 Pulse Rate 84 85 91 H Respiratory 15 19 22 Rate Blood Pressure 114/66 105/80 Blood Pressure [Left] O2 Sat by Pulse 97 98 99 Oximetry 02/17/19 02/17/19 02/17/19 14:15 14:31 14:45 Pulse Rate 94 H 78 76 Respiratory 16 19 22 Rate Blood Pressure 105/80 111/84 111/84 Blood Pressure [Left] O2 Sat by Pulse 98 95 97 Oximetry 02/17/19 02/17/19 15:01 16:05 Pulse Rate 87 93 H Respiratory 12 Rate Blood Pressure 111/84 134/92 Blood Pressure [Left] O2 Sat by Pulse 99 Oximetry - Labs CBC & Chem 7: 02/16/19 06:43 02/16/19 04:15 Labs: Abnormal lab results 02/17/19 02/17/19 Range/Units 03:52 15:30 PT 15.2 H (12.2-14.9) Sec. Heparin Anti-Xa Level 0.12 L (0.3-0.7) U.I./ml
[2019-02-17] MEDS: KCL 10MEQ/100ML 10 MEQ/100 ML BAG IV SCH ×3 (20:06→22:20)
[2019-02-17] MEDS: COUMADIN PO SCH (20:15)
[2019-02-18] MEDS: KCL 10MEQ/100ML 10 MEQ/100 ML BAG IV SCH
[2019-02-18] MEDS: HEPARIN/ 0.45% NACL-25,000 UNIT/500 ML 25,000 UNIT/500 ML BAG IV SCH (00:09)
[2019-02-18 04:51] LABS: Basophils # (Auto) 0.1 K/mm3 (0.0-0.1); Basophils % (Auto) 0.7 % (0.0-1.8); Eosinophils # (Auto) 0.1 K/mm3 (0.0-0.4); Eosinophils % (Auto) 1.5 % (0.0-4.3); Hematocrit 32.5 % (30.3-42.9); Lymphocytes # (Auto) 0.9 K/mm3 (1.2-5.4); Lymphocytes % (Auto) 11.6 % (13.4-35.0); Mean Corpuscular HGB Conc 34 % (30-34); Mean Corpuscular Volume 77 fl (79-97); Monocytes # (Auto) 0.5 K/mm3 (0.0-0.8); Monocytes % (Auto) 6.4 % (0.0-7.3); Platelet Count 124 K/mm3 (140-440); Red Cell Distribution Width 18.8 % (13.2-15.2)
[2019-02-18 05:07] LABS: Alanine Aminotransferase 61 units/L (7-56); Albumin 4.2 g/dL (3.9-5); BUN/Creatinine Ratio 17; Blood Urea Nitrogen 12 mg/dL (7-17); Calcium 9.1 mg/dL (8.4-10.2); Hemolysis Index 1
[2019-02-18] MEDS: NITRO-BID 2% TP SCH ×4 (05:53→18:04)
[2019-02-18] MEDS: CARDIZEM PO SCH (05:53)
[2019-02-18] MEDS ORDERED: CORDARONE PO SCH (10:00)
[2019-02-18] MEDS: ASPIRIN PO SCH (10:20)
[2019-02-18] MEDS: LOPRESSOR PO SCH ×2 (10:21→22:15)
[2019-02-18] MEDS: NEURONTIN PO SCH ×2 (10:21→22:15)
[2019-02-18] MEDS: PEPCID PO SCH ×2 (10:21→22:15)
[2019-02-18] MEDS: HCTZ PO SCH (10:21)
[2019-02-18] MEDS: ALDACTONE PO SCH (10:22)
--- NOTE | 2019-02-18 10:50 | Progress Note ---
Assessment and Plan Atrial fibrillation, persists s/t to noncompliant with medications TSH 8.0 initiated on warfarin for oral anticoagulation Hypokalemia No significant CAD by [facility] 07/2017. Normal LVEF by echo 07/2017. Recommendations: Continue optimal rate controlling agent with diltiazem and metoprolol for atrial fibrillation that persists. Continue oral anticoagulation with warfarin. Stable cardiac conde for discharge home today. Patient advised to have an INR check at out office within 5 days. Patient will follow up with Dr Rutledge March 01 at 220p. Subjective Date of service: 02/18/19 Principal diagnosis: atrial fibrillation, Interval history: Patient denies chest pain, shortness of breath and palpitations. Afib persists on telemetry monitoring. Objective Vital Signs Temp Pulse Resp BP BP Pulse Ox 02/18/19 10:21 110 H 02/18/19 09:34 110 H 02/18/19 09:09 20 02/18/19 07:59 98.4 F 50 L 18 127/86 97 02/18/19 03:46 99.1 F 90 18 117/76 96 02/17/19 23:01 98.2 F 83 18 129/86 92 02/17/19 20:35 88 02/17/19 19:00 98.4 F 02/17/19 18:41 88 16 108/67 02/17/19 18:30 89 18 108/67 02/17/19 18:21 80 19 118/76 02/17/19 18:11 83 22 118/76 02/17/19 18:00 88 22 118/76 02/17/19 17:51 93 H 12 134/92 02/17/19 17:41 93 H 12 134/92 02/17/19 17:31 102 H 24 134/92 02/17/19 17:21 106 H 19 134/92 02/17/19 17:11 105 H 16 134/92 96 02/17/19 17:01 91 H 21 134/92 98 02/17/19 16:51 94 H 15 134/92 96 02/17/19 16:41 88 22 134/92 95 02/17/19 16:31 85 19 134/92 97 02/17/19 16:21 92 H 20 134/92 99 02/17/19 16:11 86 23 134/92 89 02/17/19 16:05 93 H 134/92 02/17/19 16:01 94 H 20 134/92 92 02/17/19 15:51 93 H 22 107/82 96 02/17/19 15:41 86 22 107/82 96 02/17/19 15:31 92 H 21 107/82 02/17/19 15:21 84 26 H 134/92 02/17/19 15:11 85 17 134/92 100 02/17/19 15:01 87 12 111/84 99 02/17/19 14:45 76 22 111/84 97 02/17/19 14:31 78 19 111/84 95 02/17/19 14:15 94 H 16 105/80 98 02/17/19 14:01 91 H 22 105/80 99 02/17/19 13:45 85 19 98 02/17/19 13:30 84 15 114/66 97 02/17/19 13:16 90 17 105/66 97 02/17/19 13:00 83 18 114/66 96 02/17/19 12:46 79 30 H 105/66 92 02/17/19 12:30 83 14 134/85 02/17/19 12:26 74 134/85 02/17/19 12:16 79 16 134/85 95 02/17/19 12:00 94 H 22 137/97 02/17/19 11:46 90 20 137/97 98 02/17/19 11:30 91 H 26 H 137/97 95 02/17/19 11:16 90 18 137/97 95 02/17/19 11:00 85 27 H 137/97 96 02/17/19 10:49 137/97 02/17/19 10:47 137/96 - Physical Examination General: No Apparent Distress HEENT: Positive: PERRL Neck: Positive: trachea midline Cardiac: Positive: irregularly irregular Lungs: Positive: Decreased Breath Sounds Neuro: Positive: Grossly Intact Extremities: Absent: edema - Labs and Meds Cardiac Enzymes 02/18/19 Range/Units 04:20 AST 57 H (5-40) units/L CBC 02/18/19 Range/Units 04:20 WBC 8.0 (4.5-11.0) K/mm3 RBC 4.20 (3.65-5.03) M/mm3 Hgb 11.0 (10.1-14.3) gm/dl Hct 32.5 (30.3-42.9) % Plt Count 124 L (140-440) K/mm3 Lymph # 0.9 L (1.2-5.4) K/mm3 Reynolds # 0.5 (0.0-0.8) K/mm3 Eos # 0.1 (0.0-0.4) K/mm3 Baso # 0.1 (0.0-0.1) K/mm3 Comprehensive Metabolic Panel 02/18/19 Range/Units 04:20 Sodium 139 (137-145) mmol/L Potassium 3.7 (3.6-5.0) mmol/L Chloride 95.8 L (98-107) mmol/L Carbon Dioxide 26 (22-30) mmol/L BUN 12 (7-17) mg/dL Creatinine 0.7 (0.7-1.2) mg/dL Glucose 71 (65-100) mg/dL Calcium 9.1 (8.4-10.2) mg/dL AST 57 H (5-40) units/L ALT 61 H (7-56) units/L Alkaline Phosphatase 123 (35-129) units/L Total Protein 7.1 (6.3-8.2) g/dL Albumin 4.2 (3.9-5) g/dL
[2019-02-18] MEDS: CARDIZEM CD PO SCH (12:33)
--- NOTE | 2019-02-18 14:16 | Progress Note ---
Assessment and Plan Atrial Fibrillation with RVR (now controlled) Chest Pain Non-obstructive CAD by [facility] 12/2017 HTN Hypokalemia Hyperglycemia CAD - supplemental oxygen as needed to keep O2 sat's > 90% - weight loss counseled - outpatient sleep clinic evaluation especially in light of A-fib - continue rate control with metoprolol and cardizem - adjust per cardiology - IV heparin until warfarin therapeutic - continue warfarin for anticoagulation (refused CINDY guided cardioversion) - continue glycemic control with SSI - potassium replaced - continue GI prophylaxis - continue other care per attending / other consultants .... d/c planning ok pulmonary-conde Subjective Date of service: 02/18/19 Principal diagnosis: A-Fib with RVR; Chest Pain; CAD; HTN; Hypokalemia Interval history: Patient is seen today for: Atrial Fibrillation with RVR; Chest Pain; Non- obstructive CAD by [facility] 12/2017; HTN; Hypokalemia Seen and examined at bedside; 24hour events reviewed; nursing and respiratory care staff consulted; no adverse overnight events reported to me; feels overall better; denies acute chest pains or palpitations; No N/V/F/C; no bleeding noted by patient Objective Vital Signs - 12hr 02/18/19 02/18/19 02/18/19 03:46 07:59 09:09 Temperature 99.1 F 98.4 F Pulse Rate 90 50 L Respiratory 18 18 20 Rate Blood Pressure 117/76 127/86 O2 Sat by Pulse 96 97 Oximetry 02/18/19 02/18/19 02/18/19 09:34 10:21 11:35 Temperature Pulse Rate 110 H 110 H Respiratory Rate Blood Pressure O2 Sat by Pulse 94 Oximetry 02/18/19 12:21 Temperature 99.6 F Pulse Rate Respiratory 18 Rate Blood Pressure 125/79 O2 Sat by Pulse Oximetry Constitutional: no acute distress, alert, other (middle aged obese AAF, normocephalic and atraumatic) Eyes: non-icteric ENT: oropharynx moist, other (Mallampati 3) Neck: supple, no lymphadenopathy, JVD (mild), other (No thyromegaly) Effort: normal Ascultation: Bilateral: diminished breath sounds, rhonchi (basilar inspiratory crackles) Percussion: Bilateral: not dull Cardiovascular: irregular rhythm Gastrointestinal: normoactive bowel sounds, soft, non-tender, non-distended Integumentary: normal Extremities: no cyanosis, no edema, pulses normal, no ischemia or petechiae Neurologic: normal mental status, non-focal exam, pupils equal and round, CN II- XII normal, motor strength normal and Psychiatric: mood appropriate, affect normal CBC and BMP: 02/18/19 04:20 02/18/19 04:20 ABG, PT/INR, D-dimer: PT/INR, D-dimer PT 15.2 Sec. (12.2-14.9) H 02/17/19 03:52 INR 1.13 (0.87-1.13) 02/17/19 03:52 Abnormal lab findings: Abnormal Labs 02/16/19 02/16/19 02/16/19 04:15 04:15 04:15 RBC 5.04 H MCV 75 L MCH 26 L MCHC 35 H RDW 18.2 H Plt Count Lymph % (Auto) Lymph # Seg Neutrophils % Seg Neuts % (Manual) 71.0 H Lymphocytes % (Manual) 12.0 L Monocytes % (Manual) 13.0 H Lymphocytes # (Manual) 0.9 L Monocytes # (Manual) 1.0 H PT APTT 20.7 L Heparin Anti-Xa Level Potassium 3.1 L Chloride Carbon Dioxide 20 L Creatinine 0.6 L Glucose 153 H Total Bilirubin AST ALT TSH 02/16/19 02/16/19 02/17/19 04:15 06:43 03:52 RBC MCV MCH MCHC RDW Plt Count Lymph % (Auto) Lymph # Seg Neutrophils % Seg Neuts % (Manual) Lymphocytes % (Manual) Monocytes % (Manual) Lymphocytes # (Manual) Monocytes # (Manual) PT 15.2 H APTT 23.3 L Heparin Anti-Xa Level Potassium Chloride Carbon Dioxide Creatinine Glucose Total Bilirubin AST ALT TSH 8.030 H 02/17/19 02/18/19 02/18/19 15:30 04:20 04:20 RBC MCV 77 L MCH 26 L MCHC RDW 18.8 H Plt Count 124 L Lymph % (Auto) 11.6 L Lymph # 0.9 L Seg Neutrophils % 79.8 H Seg Neuts % (Manual) Lymphocytes % (Manual) Monocytes % (Manual) Lymphocytes # (Manual) Monocytes # (Manual) PT APTT Heparin Anti-Xa Level 0.12 L Potassium Chloride 95.8 L Carbon Dioxide Creatinine Glucose Total Bilirubin 4.00 H AST 57 H ALT 61 H TSH Chest x-ray: image reviewed (lordotic; mild interstitial edema vs vascular crowding from hypoventilation; + cardiomegaly) Allied health notes reviewed: nursing
--- NOTE | 2019-02-18 15:44 | Discharge Summary ---
Providers - Providers Date of Admission: 02/16/19 06:13 Date of discharge: 02/18/19 Attending physician: ANTIONE GONSALEZ 02/16/19 06:16 Consult to Physician [CONS] Routine Comment: JEANETTE SAW PT IN ER Consulting Provider: KLEBER CALDERÓN Physician Instructions: Reason For Exam: A.FIB WITH RVR AND CHEST PAIN 02/16/19 06:22 Consult to Physician [CONS] Routine Comment: DR GUERRA NOTIFIED 0800 Consulting Provider: SMITHA MORGAN Physician Instructions: Reason For Exam: ICU ADMISSION FOR I.V REUBEN LOPEZ Primary care physician: PRAVEEN ELISE Hospitalization Condition: Fair Disposition: DC-30 STILL A PATIENT Core Measure Documentation - Palliative Care Palliative Care/ Comfort Measures: Not Applicable Exam - Constitutional Vitals: Temp Pulse Resp BP Pulse Ox 99.6 F 110 H 18 125/79 94 02/18/19 12:21 02/18/19 10:21 02/18/19 12:21 02/18/19 12:21 02/18/19 11:35 Plan Follow up with: PRAVEEN ELISE JR, MD [Primary Care Provider] - 7 Days Forms: Warfarin Discharge Instruction
--- NOTE | 2019-02-18 17:29 | Progress Note ---
Assessment and Plan - PAfib Patient was placed on Cardizem drip. Rate controlled. Reverted to normal sinus with him. Cartilage consulted. Patient placed on carvedilol, Cardizem. Anticoagulation with warfarin optimize INR b/4 d/c - Chest pain Cardiac enzymes were normal 3 Pt had nl left heart cardiac catheterization on 07/2017 Echocardiogram of 2017 showed an ejection fraction of 50% - Hypokalemia -corrected Nl magnesium level - Elevated TSH at 8.0 However T4 was normal at 1.2. - Hyperglycemia A1c 4.0% Consistent carbohydrate diet - DVT prophylaxis with Lovenox and GI with Pepcid - Time spent during this encounter: 30 minutes _ Disposition: Optimize INR to therapeutic level and D/c home Subjective Date of service: 02/18/19 Principal diagnosis: A-Fib with RVR; Chest Pain; CAD; HTN; Hypokalemia Interval history: Shortness of breath. No more palpitations. Denies any chest pain. Objective - Exam Narrative Exam: Constitutional: Well-nourished well-developed. In no distress Head: Normocephalic atraumatic Eyes: Pupils are equal round and reactive to light Nose: No enlarged turbinates, no septal deviation. Mouth: Moist mucous membranes. Neck: Supple no thyromegaly. No bruit. No JVD Heart: Irregularly irregular heart rate. No rubs murmurs or gallop Lungs: Clear to auscultation bilaterally. no rales or rhonchi Abdomen: Soft, nontender. Bowel sound are present. Extremities: No edema, no cyanosis, no clubbing. Neuro: Alert oriented Oriented x3. No focal sensory or motor deficit. Skin: No rashes or hyperpigmented spots Musculoskeletal system: No joint pain or swelling Hematological: No petechia or subcutanous hemorrhages. Immunological: No multiple septic spots on the skin Lymphatic: No generalized lymphadenopathy Psychiatry: Euthymic. Calm. - Constitutional Vitals: Vital Signs - 12hr 02/18/19 02/18/19 02/18/19 07:59 09:09 09:34 Temperature 98.4 F Pulse Rate 50 L 110 H Respiratory 18 20 Rate Blood Pressure 127/86 O2 Sat by Pulse 97 Oximetry 02/18/19 02/18/19 02/18/19 10:21 11:35 12:21 Temperature 99.6 F Pulse Rate 110 H Respiratory 18 Rate Blood Pressure 125/79 O2 Sat by Pulse 94 Oximetry 02/18/19 16:17 Temperature 99.6 F Pulse Rate 99 H Respiratory 18 Rate Blood Pressure 118/81 O2 Sat by Pulse 94 Oximetry - Labs CBC & Chem 7: 02/18/19 04:20 02/18/19 04:20 Labs: Abnormal lab results 02/18/19 02/18/19 Range/Units 04:20 04:20 MCV 77 L (79-97) fl MCH 26 L (28-32) pg RDW 18.8 H (13.2-15.2) % Plt Count 124 L (140-440) K/mm3 Lymph % (Auto) 11.6 L (13.4-35.0) % Lymph # 0.9 L (1.2-5.4) K/mm3 Seg Neutrophils % 79.8 H (40.0-70.0) % Chloride 95.8 L (98-107) mmol/L Total Bilirubin 4.00 H (0.1-1.2) mg/dL AST 57 H (5-40) units/L ALT 61 H (7-56) units/L
[2019-02-18] MEDS: COUMADIN PO SCH (18:36)
[2019-02-18] MEDS: ULTRAM PO PRN (18:37)
[2019-02-19] MEDS: ULTRAM PO PRN ×2 (04:39→11:42)
[2019-02-19 05:51] LABS: Basophils # (Auto) 0.1 K/mm3 (0.0-0.1); Basophils % (Auto) 0.7 % (0.0-1.8); Eosinophils # (Auto) 0.1 K/mm3 (0.0-0.4); Eosinophils % (Auto) 1.1 % (0.0-4.3); Hematocrit 32.7 % (30.3-42.9); Hemoglobin 11.1 gm/dl (10.1-14.3); Lymphocytes # (Auto) 0.7 K/mm3 (1.2-5.4); Lymphocytes % (Auto) 7.6 % (13.4-35.0); Mean Corpuscular HGB Conc 34 % (30-34); Mean Corpuscular Volume 77 fl (79-97); Monocytes # (Auto) 0.6 K/mm3 (0.0-0.8); Monocytes % (Auto) 7.3 % (0.0-7.3); Platelet Count 101 K/mm3 (140-440); Red Blood Count 4.25 M/mm3 (3.65-5.03); Red Cell Distribution Width 19.3 % (13.2-15.2)
[2019-02-19 05:58] LABS: INR 1.19 (0.87-1.13)
[2019-02-19 06:22] LABS: Alanine Aminotransferase 51 units/L (7-56); Albumin 4.1 g/dL (3.9-5); BUN/Creatinine Ratio 13; Blood Urea Nitrogen 9 mg/dL (7-17); Calcium 9.3 mg/dL (8.4-10.2); Hemolysis Index 1
[2019-02-19] MEDS ORDERED: K-DUR PO NR (08:40)
--- NOTE | 2019-02-19 09:32 | Discharge Summary ---
Providers - Providers Date of Admission: 02/16/19 06:13 Attending physician: MIRIAM PHILLIPS MD 02/16/19 06:16 Consult to Physician [CONS] Routine Comment: FelisaTORREY SAW PT IN ER Consulting Provider: KLEBER CALDERÓN Physician Instructions: Reason For Exam: A.FIB WITH RVR AND CHEST PAIN 02/16/19 06:22 Consult to Physician [CONS] Routine Comment: DR GUERRA NOTIFIED 0800 Consulting Provider: SMITHA MORGAN Physician Instructions: Reason For Exam: ICU ADMISSION FOR I.V CARDIZEM DRIP Primary care physician: PRAVEEN ELISE Hospitalization Reason for admission: AFIB Condition: Stable Hospital course: Patient is 58 year old female with admitted with chest pain and diagnosed with AFib, She was treated with Cardizem drip,and placed on warfarin and Metoprolol. per cardiology she did not need to be therapeutic on discharge since this is the first event and no major event. The patient was formally on xarelto but has not taken it for 6months due to cost. she was noted to have nl left heart cardiac catheterization on 07/2017, Echocardiogram of 2017 showed an ejection fraction of 50%. Patient has chronic left hip pain and ambulates with a limp. Cardiology recommends and patient was advised to follow with him. She is also undergoing work up for liver disease and elevated bilirubin at [facility]. she refused CINDY giuded cardioversion. She denies any abdominal pain and will continue to follow with her outpatient Orthopedic doctor. she will have INR check in 5 days at the licensed [facility]igher office Repeat BP prior to discharge was much improved at 134/84 Atrial Fibrillation with RVR (now controlled) Chest Pain Non-obstructive CAD by [facility] 12/2017 HTN Hypokalemia Hyperglycemia A1c 4 CAD Disposition: DC/TX-06 HOME UNDER HOME [facility] Time spent for discharge: 35 MINS Core Measure Documentation - Palliative Care Palliative Care/ Comfort Measures: Not Applicable - Core Measures Any of the following diagnoses?: none Exam - Physical Exam Narrative exam: Constitutional: Well-nourished well-developed. In no distress Head: Normocephalic atraumatic Eyes: Pupils are equal round and reactive to light Mouth: Moist mucous membranes. Neck: Supple no thyromegaly. No bruit. No JVD Heart: Irregularly irregular heart rate. No rubs murmurs or gallop Lungs: Clear to auscultation bilaterally. no rales or rhonchi Abdomen: Soft, nontender. Bowel sound are present. Extremities: No edema, no cyanosis, no clubbing. Neuro: Alert oriented Oriented x3. No focal sensory or motor deficit. Skin: No rashes or hyperpigmented spots Musculoskeletal system: LEFT HIP REDUCE ROM, Hematological: No petechia or subcutanous hemorrhages. Immunological: No multiple septic spots on the skin Lymphatic: No generalized lymphadenopathy Psychiatry: Euthymic. Calm. - Constitutional Vitals: Temp Pulse Resp BP Pulse Ox 98.0 F 81 18 151/92 94 02/19/19 05:36 02/19/19 05:36 02/19/19 05:36 02/19/19 05:36 02/19/19 05:36 Plan Activity: advance as tolerated, fall precautions Diet: low fat Special Instructions: record daily BP diary, physical therapy Follow up with: PRAVEEN ELISE JR, MD [Primary Care Provider] - 7 Days KLEBER CALDERÓN MD [Staff Physician] - 3 Days Forms: Warfarin Discharge Instruction Prescriptions: Aspirin [Adult Aspirin] 81 mg PO DAILY #30 tablet.[address] [email or web address] CD [Cardizem CD] 180 mg PO QDAY #30 capsule Warfarin [Coumadin] 5 mg PO QDAY #30 tablet
--- NOTE | 2019-02-19 10:45 | Progress Note ---
Assessment and Plan Atrial fibrillation, persists s/t to noncompliant with medications TSH 8.0 pt declined CINDY guided cardioversion initiated on warfarin for oral anticoagulation Hypokalemia No significant CAD by [facility] 07/2017. Normal LVEF by echo 07/2017. Recommendations: Continue optimal rate controlling agent with diltiazem and metoprolol for atrial fibrillation that persists. Continue oral anticoagulation with warfarin. Stable cardiac conde for discharge home today. Discharge home on 5 mg of Coumadin maintenance dosing. Patient advised to have an INR check at out office within 3-5 days. Patient will follow up with Dr Rutledge March 01 at 220p. Subjective Date of service: 02/19/19 Principal diagnosis: A-Fib with RVR; Chest Pain; CAD; HTN; Hypokalemia Interval history: Patient has no complaints. For planned discharge home today. Objective Vital Signs Temp Pulse Pulse Resp BP BP Pulse Ox 02/19/19 05:36 98.0 F 81 18 151/92 94 02/19/19 04:39 20 02/19/19 00:22 98.2 F 114 H 18 127/98 91 02/18/19 22:15 90 02/18/19 20:54 99.6 F 99 H 137/97 02/18/19 20:13 94 H 02/18/19 20:10 99 H 02/18/19 20:00 98.5 F 70 18 139/84 94 02/18/19 16:17 99.6 F 99 H 18 118/81 94 02/18/19 12:21 99.6 F 18 125/79 02/18/19 11:35 94 - Physical Examination General: No Apparent Distress HEENT: Positive: PERRL Neck: Positive: trachea midline Cardiac: Positive: irregularly irregular Lungs: Positive: Decreased Breath Sounds Neuro: Positive: Grossly Intact Extremities: Absent: edema - Labs and Meds Cardiac Enzymes 02/19/19 Range/Units 05:31 AST 41 H (5-40) units/L Coagulation 02/18/19 02/19/19 Range/Units 16:52 05:31 PT 13.8 15.9 H (12.2-14.9) Sec. INR 1.00 1.19 H (0.87-1.13) CBC 02/19/19 Range/Units 05:31 WBC 8.8 (4.5-11.0) K/mm3 RBC 4.25 (3.65-5.03) M/mm3 Hgb 11.1 (10.1-14.3) gm/dl Hct 32.7 (30.3-42.9) % Plt Count 101 L (140-440) K/mm3 Lymph # 0.7 L (1.2-5.4) K/mm3 Stewart # 0.6 (0.0-0.8) K/mm3 Eos # 0.1 (0.0-0.4) K/mm3 Baso # 0.1 (0.0-0.1) K/mm3 Comprehensive Metabolic Panel 02/19/19 Range/Units 05:31 Sodium 140 (137-145) mmol/L Potassium 3.4 L (3.6-5.0) mmol/L Chloride 97.6 L (98-107) mmol/L Carbon Dioxide 23 (22-30) mmol/L BUN 9 (7-17) mg/dL Creatinine 0.7 (0.7-1.2) mg/dL Glucose 130 H (65-100) mg/dL Calcium 9.3 (8.4-10.2) mg/dL AST 41 H (5-40) units/L ALT 51 (7-56) units/L Alkaline Phosphatase 137 H (35-129) units/L Total Protein 7.5 (6.3-8.2) g/dL Albumin 4.1 (3.9-5) g/dL - Allied health notes Allied health notes reviewed: nursing
[2019-02-19] MEDS: PEPCID PO SCH (11:41)
[2019-02-19] MEDS: ALDACTONE PO SCH (11:41)
[2019-02-19] MEDS: CARDIZEM CD PO SCH (11:41)
[2019-02-19] MEDS: LOPRESSOR PO SCH (11:42)
[2019-02-19] MEDS: ASPIRIN PO SCH (11:42)
[2019-02-19] MEDS: HCTZ PO SCH (11:42)
[2019-02-19] MEDS: NEURONTIN PO SCH (11:42)
[2019-02-19 11:46] VITALS: BP 150/114
--- NOTE | 2019-02-19 12:59 | Progress Note ---
Assessment and Plan Atrial Fibrillation with RVR (now controlled) Chest Pain Non-obstructive CAD by [facility] 12/2017 HTN Hypokalemia Hyperglycemia CAD - continue supplemental oxygen as needed to keep O2 sat's > 90% - continued weight loss counselling done at bedside intermittently - recommended outpatient sleep clinic evaluation especially in light of A-fib - continue rate control with metoprolol and cardizem - adjust per cardiology - IV heparin until warfarin therapeutic - continue warfarin for anticoagulation (refused CINDY guided cardioversion) - continue glycemic control with SSI - potassium replaced - continue GI prophylaxis - continue other care per attending / other consultants .... d/c planning ok pulmonary-conde Subjective Date of service: 02/19/19 Principal diagnosis: A-Fib with RVR; Chest Pain; CAD; HTN; Hypokalemia Interval history: Patient is seen today for: Atrial Fibrillation with RVR; Chest Pain; Non- obstructive CAD by [facility] 12/2017; HTN; Hypokalemia Seen and examined at bedside; 24hour events reviewed; nursing and respiratory care staff consulted; no adverse overnight events reported to me; continues to feels overall better overall; denies acute chest pains or palpitations; No N/V/F/C; slept well Objective Vital Signs - 12hr 02/19/19 02/19/19 02/19/19 04:39 05:36 10:00 Temperature 98.0 F Pulse Rate 81 123 H Pulse Rate [ 76 From Monitor] Respiratory 20 18 Rate Blood Pressure 151/92 O2 Sat by Pulse 94 Oximetry 02/19/19 02/19/19 02/19/19 11:00 11:41 11:42 Temperature Pulse Rate 76 76 Pulse Rate [ From Monitor] Respiratory Rate Blood Pressure 150/114 150/114 O2 Sat by Pulse 97 Oximetry Constitutional: no acute distress, alert, other (middle aged obese AAF, normocephalic and atraumatic) Eyes: non-icteric ENT: oropharynx moist, other (Mallampati 3) Neck: supple, no lymphadenopathy, JVD (mild), other (No thyromegaly) Effort: normal Ascultation: Bilateral: diminished breath sounds, rhonchi (basilar inspiratory crackles) Percussion: Bilateral: not dull Cardiovascular: irregular rhythm Gastrointestinal: normoactive bowel sounds, soft, non-tender, non-distended Integumentary: normal Extremities: no cyanosis, no edema, pulses normal, no ischemia or petechiae Neurologic: normal mental status, non-focal exam, pupils equal and round, CN II- XII normal, motor strength normal and Psychiatric: mood appropriate, affect normal CBC and BMP: 02/19/19 05:31 02/19/19 05:31 ABG, PT/INR, D-dimer: PT/INR, D-dimer PT 15.9 Sec. (12.2-14.9) H 02/19/19 05:31 INR 1.19 (0.87-1.13) H 02/19/19 05:31 Abnormal lab findings: Abnormal Labs 02/16/19 02/16/19 02/16/19 04:15 04:15 04:15 RBC 5.04 H MCV 75 L MCH 26 L MCHC 35 H RDW 18.2 H Plt Count Lymph % (Auto) Lymph # Seg Neutrophils % Seg Neuts % (Manual) 71.0 H Lymphocytes % (Manual) 12.0 L Monocytes % (Manual) 13.0 H Lymphocytes # (Manual) 0.9 L Monocytes # (Manual) 1.0 H PT INR APTT 20.7 L Heparin Anti-Xa Level Potassium 3.1 L Chloride Carbon Dioxide 20 L Creatinine 0.6 L Glucose 153 H Total Bilirubin AST ALT Alkaline Phosphatase TSH 02/16/19 02/16/19 02/17/19 04:15 06:43 03:52 RBC MCV MCH MCHC RDW Plt Count Lymph % (Auto) Lymph # Seg Neutrophils % Seg Neuts % (Manual) Lymphocytes % (Manual) Monocytes % (Manual) Lymphocytes # (Manual) Monocytes # (Manual) PT 15.2 H INR APTT 23.3 L Heparin Anti-Xa Level Potassium Chloride Carbon Dioxide Creatinine Glucose Total Bilirubin AST ALT Alkaline Phosphatase TSH 8.030 H 02/17/19 02/18/19 02/18/19 15:30 04:20 04:20 RBC MCV 77 L MCH 26 L MCHC RDW 18.8 H Plt Count 124 L Lymph % (Auto) 11.6 L Lymph # 0.9 L Seg Neutrophils % 79.8 H Seg Neuts % (Manual) Lymphocytes % (Manual) Monocytes % (Manual) Lymphocytes # (Manual) Monocytes # (Manual) PT INR APTT Heparin Anti-Xa Level 0.12 L Potassium Chloride 95.8 L Carbon Dioxide Creatinine Glucose Total Bilirubin 4.00 H AST 57 H ALT 61 H Alkaline Phosphatase TSH 02/19/19 02/19/19 02/19/19 05:31 05:31 05:31 RBC MCV 77 L MCH 26 L MCHC RDW 19.3 H Plt Count 101 L Lymph % (Auto) 7.6 L Lymph # 0.7 L Seg Neutrophils % 83.3 H Seg Neuts % (Manual) Lymphocytes % (Manual) Monocytes % (Manual) Lymphocytes # (Manual) Monocytes # (Manual) PT 15.9 H INR 1.19 H APTT Heparin Anti-Xa Level Potassium 3.4 L Chloride 97.6 L Carbon Dioxide Creatinine Glucose 130 H Total Bilirubin 4.20 H AST 41 H ALT Alkaline Phosphatase 137 H TSH Allied health notes reviewed: nursing
[2019-02-19] MEDS ORDERED: COUMADIN PO SCH (17:00)
== END 2019-02-19 15:03 | disposition home health service (06) | DRG 309 ==
LOC: SUATTDRO 03:46 → ED 03:46 → CC1 06:13 → 4A 02-17 09:43
PROVIDERS: ADMIT Internal Medicine; ATTEND Internal Medicine
DX: I48.1 Persistent atrial fibrillation (principal); I50.32 Chronic diastolic (congestive) heart failure; I25.10 Atherosclerotic heart disease of native coronary artery without angina pectoris; E87.6 Hypokalemia; I11.0 Hypertensive heart disease with heart failure; R73.9 Hyperglycemia, unspecified; Z53.29 Procedure and treatment not carried out because of patient's decision for other reasons; K21.9 Gastro-esophageal reflux disease without esophagitis; M19.90 Unspecified osteoarthritis, unspecified site; Z79.01 Long term (current) use of anticoagulants; Z88.5 Allergy status to narcotic agent; Z79.899 Other long term (current) drug therapy; Z91.14 Patient's other noncompliance with medication regimen; Z79.82 Long term (current) use of aspirin; Z90.49 Acquired absence of other specified parts of digestive tract
CPT/HCPCS: 36415; 71045; 80048; 80053; 82550; 82553; 83036; 83735; 84439; 84443; 84484; 85007; 85014; 85018; 85025; 85049; 85520; 85610; 85730; 93005; 93010; G0378; A9270-GY; J0282; J1170; J1644; J2405; J2704; J3480; J7030

== ENCOUNTER 2020-04-24 17:40 | Observation (INO) | payer MEDICARE ==
[2020-04-24] MEDS ORDERED: NITROGLYCERIN 0.4 MG TAB SUBL SL ONE (18:13)
[2020-04-24] MEDS ORDERED: ASPIRIN 325 MG TAB PO ONE (18:13)
[2020-04-24] MEDS ORDERED: HYDROmorphone 1 MG/1 ML INJ IV ONE ×2 (18:27→21:37)
[2020-04-24 18:29] LABS: Basophils # (Auto) 0.1 K/mm3 (0.0-0.1); Basophils % (Auto) 0.6 % (0.0-1.8); Eosinophils % (Auto) 0.1 % (0.0-4.3); Hematocrit 33.2 % (30.3-42.9); Hemoglobin 11.6 gm/dl (10.1-14.3); Lymphocytes # (Auto) 0.8 K/mm3 (1.2-5.4); Lymphocytes % (Auto) 7.7 % (13.4-35.0); Mean Corpuscular HGB Conc 35 % (30-34); Mean Corpuscular Volume 72 fl (79-97); Monocytes # (Auto) 0.7 K/mm3 (0.0-0.8); Monocytes % (Auto) 6.7 % (0.0-7.3); Platelet Count 164 K/mm3 (140-440); Red Blood Count 4.63 M/mm3 (3.65-5.03)
[2020-04-24 18:34] LABS: Red Cell Distribution Width 20.5 % (13.2-15.2)
[2020-04-24 18:39] LABS: INR 2.41 (0.87-1.13); Partial Thromboplastin Time 30.3 Sec. (24.2-36.6)
--- NOTE | 2020-04-24 18:49 | XRay Report ---
CHEST 1 VIEW INDICATION / CLINICAL INFORMATION: Chest Pain. COMPARISON: 01/19/2020 chest radiograph FINDINGS: SUPPORT DEVICES: None. HEART / MEDIASTINUM: No significant abnormality. LUNGS / PLEURA: No significant pulmonary or pleural abnormality. No pneumothorax. IMPRESSION: No acute finding and no significant change. Signer Name: Ricardo Nelson MD Signed: 04/24/2020 6:45 PM Workstation Name: [id number]
[2020-04-24] MEDS ORDERED: NITROGLYCERIN 0.4 MG TAB SUBL SL PRN (19:34)
[2020-04-24 19:38] LABS: Alanine Aminotransferase 61 units/L (7-56); Albumin 4.3 g/dL (3.9-5); BUN/Creatinine Ratio 15; Blood Urea Nitrogen 9 mg/dL (7-17); Hemolysis Index 5
--- NOTE | 2020-04-24 19:50 | Emergency Department Report ---
ED Chest Pain HPI - General Chief Complaint: Chest Pain Stated Complaint: CHEST PAIN Time Seen by Provider: 04/24/20 18:08 Source: patient Mode of arrival: Stretcher Limitations: No Limitations - History of Present Illness Initial Comments: This is a 59-year-old female nontoxic, well nourished in appearance, no acute signs of distress presents to the ED with c/o of midsternum chest pain with radiation to back area and SOB. Patient started this morning and is worsening. Patient denies any upper respiratory symptoms. Describes chest pain as aching and tightness. Patient denies any hemoptysis, fever, chills, nausea, vomiting, headache, stiff neck, numbness, tingling, abdominal pain. Patient denies pleuritic chest pain. Patient denies any recent travels or long car rides. Patient denies any recent surgeries or any sick contacts. Patient denies any drug allergies. Past medical history includes a-fib, CHF, and CAD. Last stress and echocardiogram was 2 months ago and was within normal limits. MD Complaint: chest pain -: days(s) Pain Location: substernal, epigastric Pain Radiation: back Severity: mild Severity scale (0 -10): 8 Quality: tightness, aching, heaviness Consistency: intermittent Improves With: nothing Worsens With: nothing re: denies: nausea, vomting, diaphoresis, dyspnea, sense of impending doom Other Symptoms: denies: cough, fever, syncope, rash, acid taste in mouth, leg swelling, palpitations, burping Treatments Prior to Arrival: nitroglycerin - Related Data Home Medications Medication Instructions Recorded Confirmed Last Taken Azithromycin [Zithromax TAB] 250 mg PO QDAY 01/20/20 01/20/20 1 Day Ago ~01/19/20 Benzonatate [Tessalon Perles] 100 mg PO Q8HR PRN 01/20/20 01/20/20 1 Day Ago ~01/19/20 dilTIAZem CD [Cardizem CD] 240 mg PO QDAY 01/20/20 01/20/20 1 Day Ago ~01/19/20 methylPREDNISolone [Medrol 4MG 4 mg PO QID 01/20/20 01/20/20 01/20/20 DOSEPAK (21 tabs)] Previous Rx's Medication Instructions Recorded Last Taken Type Warfarin [Coumadin] 5 mg PO QDAY #30 tablet 02/19/19 1 Day Ago Rx ~01/19/20 Pantoprazole [Protonix] 40 mg PO QDAY #30 tablet 01/20/20 Unknown Rx Allergies Allergy/AdvReac Type Severity Reaction Status Date / Time morphine Allergy Itching Verified 02/16/19 05:40 Heart Score - HEART Score History: Highly suspicious EKG: Non-specific Age: 45-65 Risk factors: > 3 risk factors or hx of atherosclerotic disease Troponin: < normal limit HEART Score: 6 - Critical Actions Critical Actions: 4-6 pts:12-16.6% risk of adverse cardiac event. Should be admitted ED Review of Systems ROS: Stated complaint: CHEST PAIN Other details as noted in HPI Constitutional: denies: chills, fever Eyes: denies: eye pain, eye discharge, vision change ENT: denies: ear pain, throat pain Respiratory: shortness of breath. denies: cough, wheezing Cardiovascular: chest pain. denies: palpitations Endocrine: no symptoms reported Gastrointestinal: abdominal pain, nausea. denies: vomiting, diarrhea Genitourinary: denies: urgency, dysuria, discharge Musculoskeletal: denies: back pain, joint swelling, arthralgia Skin: denies: rash, lesions Neurological: denies: headache, weakness, paresthesias Psychiatric: denies: anxiety, depression Hematological/Lymphatic: denies: easy bleeding, easy bruising ED Past Medical Hx - Past Medical History Previous Medical History?: Yes Hx Hypertension: Yes Hx Congestive Heart Failure: Yes Hx Diabetes: No Hx Arthritis: Yes Hx Asthma: No Hx COPD: No Additional medical history: A-fib - Surgical History Past Surgical History?: No Hx Cholecystectomy: Yes - Social History Smoking Status: Never Smoker Substance Use Type: None - Medications Home Medications: Home Medications Medication Instructions Recorded Confirmed Last Taken Type Warfarin [Coumadin] 5 mg PO QDAY #30 tablet 02/19/19 01/20/20 1 Day Ago Rx ~01/19/20 Azithromycin [Zithromax TAB] 250 mg PO QDAY 01/20/20 01/20/20 1 Day Ago History ~01/19/20 Benzonatate [Tessalon Perles] 100 mg PO Q8HR PRN 01/20/20 01/20/20 1 Day Ago History ~01/19/20 Pantoprazole [Protonix] 40 mg PO QDAY #30 tablet 01/20/20 Unknown Rx dilTIAZem CD [Cardizem CD] 240 mg PO QDAY 01/20/20 01/20/20 1 Day Ago History ~01/19/20 methylPREDNISolone [Medrol 4MG 4 mg PO QID 01/20/20 01/20/20 01/20/20 History DOSEPAK (21 tabs)] ED Physical Exam - General Limitations: No Limitations General appearance: alert, in no apparent distress - Head Head exam: Present: atraumatic, normocephalic - Eye Eye exam: Present: normal appearance - Neck Neck exam: Present: normal inspection, full ROM. Absent: tenderness, meningismus, lymphadenopathy - Respiratory Respiratory exam: Present: normal lung sounds bilaterally. Absent: respiratory distress, wheezes, rales, rhonchi, stridor, chest wall tenderness, accessory muscle use, decreased breath sounds, prolonged expiratory - Cardiovascular Cardiovascular Exam: Present: regular rate, normal rhythm, tachycardia, normal heart sounds. Absent: bradycardia, irregular rhythm, systolic murmur, diastolic murmur, rubs, gallop - GI/Abdominal GI/Abdominal exam: Present: distended, tenderness (epigastric), normal bowel sounds. Absent: soft, guarding, rebound, rigid, diminished bowel sounds - Extremities Exam Extremities exam: Present: normal inspection, full ROM, normal capillary refill. Absent: tenderness - Back Exam Back exam: Present: normal inspection, full ROM. Absent: tenderness, CVA tenderness (R), CVA tenderness (L), muscle spasm, paraspinal tenderness, verte bral tenderness, rash noted - Neurological Exam Neurological exam: Present: alert, oriented X3, normal gait - Psychiatric Psychiatric exam: Present: normal affect, normal mood - Skin Skin exam: Present: warm, dry, intact, normal color. Absent: rash ED Course Vital Signs 04/24/20 04/24/20 04/24/20 18:01 18:03 18:16 Temperature 98.1 F Pulse Rate 72 Respiratory 20 Rate Blood Pressure 138/84 Blood Pressure 116/89 [Left] O2 Sat by Pulse 99 98 99 Oximetry 04/24/20 04/24/20 04/24/20 18:30 18:32 18:33 Temperature Pulse Rate 64 Respiratory 12 Rate Blood Pressure 138/84 138/84 Blood Pressure [Left] O2 Sat by Pulse 99 Oximetry 04/24/20 04/24/20 04/24/20 18:46 19:00 19:03 Temperature Pulse Rate Respiratory 18 Rate Blood Pressure 138/84 120/81 Blood Pressure [Left] O2 Sat by Pulse 98 97 Oximetry 04/24/20 04/24/20 04/24/20 19:15 19:30 19:36 Temperature Pulse Rate 107 H Respiratory Rate Blood Pressure 118/87 118/87 129/96 Blood Pressure [Left] O2 Sat by Pulse 97 99 Oximetry 04/24/20 04/24/20 04/24/20 19:46 20:00 20:32 Temperature Pulse Rate 95 H 106 H Respiratory 29 H 16 Rate Blood Pressure 114/81 114/81 101/53 Blood Pressure [Left] O2 Sat by Pulse 98 99 100 Oximetry 04/24/20 04/24/20 04/24/20 20:45 21:06 21:16 Temperature Pulse Rate 105 H 132 H 105 H Respiratory 26 H 30 H 22 Rate Blood Pressure 128/69 128/69 128/69 Blood Pressure [Left] O2 Sat by Pulse 99 100 99 Oximetry - Reevaluation(s) Reevaluation #1: 04/24/20 19:56 Patient is speaking in full sentences with no signs of distress noted. Reevaluation #2: 04/24/20 19:59 Chest pain has returned after medical treatment in the ED. Will repeat EKG. Aw aiting CTA and CT abdomen. - Consultations Consultation #1: 04/24/20 20:05 Patient has been consulted with Dr. Nevarez about patient history, physical exam, and labs and agrees to the ED plan of care. Consultation #2: 04/24/20 21:55 Patient has been consulted with Dr. Beltre about patient history, physical exam, and labs/imaging results and accepts patient to services. MICHAEL score - Michael Score Age > 65: (0) No Aspirin use within the Past 7 Days: (0) No 3 or more CAD Risk Factors: (1) Yes 2 or more Angina events in past 24 hrs: (1) Yes Known CAD with more than 50% Stenosis: (0) No Elevated Cardiac Markers: (0) No ST Deviation Greater than 0.5mm: (0) No MICHAEL Score: 2 ED Medical Decision Making - Lab Data Result diagrams: 04/24/20 18:18 04/24/20 18:18 Lab Results 04/24/20 04/24/20 04/24/20 Range/Units 18:18 18:18 18:18 WBC 10.1 (4.5-11.0) K/mm3 RBC 4.63 (3.65-5.03) M/mm3 Hgb 11.6 (10.1-14.3) gm/dl Hct 33.2 (30.3-42.9) % MCV 72 L (79-97) fl MCH 25 L (28-32) pg MCHC 35 H (30-34) % RDW 20.5 H (13.2-15.2) % Plt Count 164 (140-440) K/mm3 Lymph % (Auto) 7.7 L (13.4-35.0) % [place]upe % (Auto) 6.7 (0.0-7.3) % Eos % (Auto) 0.1 (0.0-4.3) % Baso % (Auto) 0.6 (0.0-1.8) % Lymph # 0.8 L (1.2-5.4) K/mm3 [place] # 0.7 (0.0-0.8) K/mm3 Eos # 0.0 (0.0-0.4) K/mm3 Baso # 0.1 (0.0-0.1) K/mm3 Seg Neutrophils % 84.9 H (40.0-70.0) % Seg Neutrophils # 8.6 H (1.8-7.7) K/mm3 PT 25.6 H (12.2-14.9) Sec. INR 2.41 H (0.87-1.13) APTT 30.3 (24.2-36.6) Sec. D-Dimer 1046.14 H (0-234) ng/mlDDU Sodium 144 (137-145) mmol/L Potassium 4.0 (3.6-5.0) mmol/L Chloride 104.2 (98-107) mmol/L Carbon Dioxide 19 L (22-30) mmol/L Anion Gap 25 mmol/L BUN 9 (7-17) mg/dL Creatinine 0.6 L (0.7-1.2) mg/dL Estimated GFR > 60 ml/min BUN/Creatinine Ratio 15 % Glucose 108 H (65-100) mg/dL Calcium 9.0 (8.4-10.2) mg/dL Total Bilirubin 2.00 H (0.1-1.2) mg/dL AST 75 H (5-40) units/L ALT 61 H (7-56) units/L Alkaline Phosphatase 107 (35-129) units/L Troponin T < 0.010 (0.00-0.029) ng/mL NT-Pro-B Natriuret Pep (0-900) pg/mL Total Protein 7.7 (6.3-8.2) g/dL Albumin 4.3 (3.9-5) g/dL Albumin/Globulin Ratio 1.3 % 05/25/20 Range/Units 18:18 WBC (4.5-11.0) K/mm3 RBC (3.65-5.03) M/mm3 Hgb (10.1-14.3) gm/dl Hct (30.3-42.9) % MCV (79-97) fl MCH (28-32) pg MCHC (30-34) % RDW (13.2-15.2) % Plt Count (140-440) K/mm3 Lymph % (Auto) (13.4-35.0) % [place] % (Auto) (0.0-7.3) % Eos % (Auto) (0.0-4.3) % Baso % (Auto) (0.0-1.8) % Lymph # (1.2-5.4) K/mm3 [place] # (0.0-0.8) K/mm3 Eos # (0.0-0.4) K/mm3 Baso # (0.0-0.1) K/mm3 Seg Neutrophils % (40.0-70.0) % Seg Neutrophils # (1.8-7.7) K/mm3 PT (12.2-14.9) Sec. INR (0.87-1.13) APTT (24.2-36.6) Sec. D-Dimer (0-234) ng/mlDDU Sodium (137-145) mmol/L Potassium (3.6-5.0) mmol/L Chloride (98-107) mmol/L Carbon Dioxide (22-30) mmol/L Anion Gap mmol/L BUN (7-17) mg/dL Creatinine (0.7-1.2) mg/dL Estimated GFR ml/min BUN/Creatinine Ratio % Glucose (65-100) mg/dL Calcium (8.4-10.2) mg/dL Total Bilirubin (0.1-1.2) mg/dL AST (5-40) units/L ALT (7-56) units/L Alkaline Phosphatase (35-129) units/L Troponin T (0.00-0.029) ng/mL NT-Pro-B Natriuret Pep 469.0 (0-900) pg/mL Total Protein (6.3-8.2) g/dL Albumin (3.9-5) g/dL Albumin/Globulin Ratio % - EKG Data 04/24/20 19:57 Atrial fibrillation and 107 bpm. Paired Ventricular premature complexes. Compared with previous EKG with no significant changes. Reviewed and signed by Dr. Nevarez. 04/24/20 20:10 Repeat EKG: A-fib at 102 bmp. Probable LVH w/ secondary repol. No significant ST abnormalitis. Reviewed and signed by Dr. Nevarez. - Radiology Data Patient Name: MAYO TRAN Gender: Female Date of : 1960 Referring Provider: TYLER SOMMER Organization: [facility] Accession Number: [id number] Requested Date: April 24, 2020 18:13 Report Status: Final Requested Procedure: 1 Procedure Description: XR chest 1V ap Modality: XR Findings Reporting MD: Ricardo Nelson Dictation Time: April 24, 2020 17:45 Transcripti onist: Not available Frit Maker Date: CHEST 1 VIEW INDICATION / CLINICAL INFORMATION: Chest Pain. COMPARISON: 01/19/2020 chest radiograph FINDINGS: SUPPORT DEVICES: None. HEART / MEDIASTINUM: No significant abnormality. LUNGS / PLEURA: No significant pulmonary or pleural abnormality. No pneumothorax. IMPRESSION: No acute finding and no significant change. Signer Name: Ricardo Nelson MD Signed: 04/24/2020 5:45 PM Workstation Name: [id number] - Medical Decision Making This is a 59-year-old female that presents with unstable angina. Patient is stable and was examined by me. Despite ED treatment in ER patient's chest pain has increased and worsened throughout the ED stay. EKG with no significant changes. Patient admitted with hospitalist for further evaluation and treatment. At time of admission, the patient does not seem toxic or ill in appearance. No acute signs of distress noted. Patient agrees to admission treatment plan of care. No further questions noted by the patient. Critical care attestation.: If time is entered above; I have spent that time in minutes in the direct care of this critically ill patient, excluding procedure time. ED Disposition Clinical Impression: Unstable angina, Intractable pain Chest pain Qualifiers: Chest pain type: unspecified Qualified Code(s): R07.9 - Chest pain, unspecified Disposition: 09 OP ADMIT IP TO THIS HOSP Is pt being admited?: Yes Condition: Stable
--- NOTE | 2020-04-24 21:01 | Cat Scan Report ---
CT angio chest INDICATION / CLINICAL INFORMATION: MAIN: cp/sob 100cc [id number]. TECHNIQUE: Axial CT images were obtained after injection of 100 cc of Omnipaque 350 IV contrast using CTA protoc ol. 3 plane MIP / 3D reconstructions were produced. All CT scans at this location are performed using CT dose reduction for ALARA by means of automated exposure control. COMPARISON: 01/19/2020 FINDINGS: Following the administration of intravenous contrast, no filling defects are seen in the main pulmona ry arteries or their branches. No significant parenchymal abnormality is seen in the lungs. No enlarg ed mediastinal or hilar lymph nodes are identified. No significant skeletal abnormality is seen. IMPRESSION: No evidence of pulmonary embolus. Negative CTA of the chest Signer Name: Bartolo Carrero MD FACR Signed: 04/24/2020 8:57 PM Workstation Name: [id number]
--- NOTE | 2020-04-24 21:05 | Cat Scan Report ---
CT abdomen pelvis w con INDICATION / CLINICAL INFORMATION: abd pain. TECHNIQUE: All CT scans at this location are performed using CT dose reduction for ALARA by means of automated e xposure control. COMPARISON: None available. FINDINGS: No free fluid is seen in the abdomen. The gallbladder has been surgically removed. The spleen is enla rged. The liver, kidneys, pancreas, adrenal glands and great vessels are normal. In the pelvis, no free fluid is seen. There is a complex multiseptated 11 cm cystic lesion in the rig ht mid pelvis. A small left adnexal cyst is present. No enlarged lymph nodes are identified. The blad babita is normal. A left hip prosthesis present and severe degenerative changes seen in the right hip. N o other significant skeletal abnormality is seen. IMPRESSION: 1. 11 cm complex cystic mass in the right mid pelvis. This could represent either a cystadenoma or cy st adenocarcinoma 2. Splenomegaly 3. Cholecystectomy 4. Severe degenerative change in the right hip joint Signer Name: Bartolo Carrero MD FACR Signed: 04/24/2020 9:01 PM Workstation Name: [id number]
[2020-04-24 21:27] LABS: Bacteria,Urine 1+ /HPF (Negative); Bilirubin,Urine NEG (Negative); Blood,Urine SM (Negative); Color,Urine Yellow (Yellow); Mucus,Urine FEW /HPF; Protein,Urine <15 mg/dL mg/dL (Negative); Sperm,Urine FEW /HPF (NP); Urobilinogen,Urine < 2.0 mg/dL (<2.0)
[2020-04-24] MEDS ORDERED: HYDROmorphone 1 MG/1 ML INJ ONE (21:37)
[2020-04-24] MEDS ORDERED: ONDANSETRON 4 MG/2 ML INJ IV PRN (22:04)
[2020-04-24] MEDS ORDERED: MAGNESIUM HYDROXIDE (MOM) ORAL LIQD UDC PO PRN (22:04)
[2020-04-24] MEDS ORDERED: ACETAMINOPHEN 325 MG TAB PO PRN (22:04)
[2020-04-24] MEDS ORDERED: MORPHINE 2 MG/1 ML INJ IV PRN (22:04)
--- NOTE | 2020-04-24 22:33 | History and Physical Report ---
History of Present Illness Date of examination: 04/24/20 Date of admission: 04/24/2020 Chief complaint: Chest pain History of present illness: 59-year-old female with known history of atrial fibrillation, coronary artery disease and CHF presents to the emergency room today complaining of chest pain since this morning. Chest pain is said to be midsternal and radiating towards the back with associated shortness of breath. She denies any fever or chills, no nausea vomiting, no abdominal pain and no diarrhea. She denies any headache or dizziness. Patient denies any sick contacts and no recent travel. Patient indicates that she is on anticoagulation for A. fib. There is no no relieving or exacerbating factor for her chest pain. On a scale of 10 pain was about 7-8 over 10 in severity. Work-up in the emergency room has been unremarkable. Past History Past Medical History: atrial fib, arthritis, hypertension Past Surgical History: cholecystectomy Social history: no significant social history Family history: CAD (Father had CABG), diabetes Medications and Allergies Allergies Allergy/AdvReac Type Severity Reaction Status Date / Time morphine Allergy Itching Verified 02/16/19 05:40 Home Medications Medication Instructions Recorded Confirmed Last Taken Type Warfarin [Coumadin] 5 mg PO QDAY #30 tablet 02/19/19 04/24/20 04/24/20 Rx dilTIAZem CD [Cardizem CD] 240 mg PO QDAY 01/20/20 04/24/20 04/24/20 History Active Meds: Active Medications Acetaminophen (Tylenol) 650 mg PO Q4H PRN PRN Reason: Pain MILD(1-3)/Fever >100.5/DUMONT Aspirin (Ecotrin) 325 mg PO QDAY DINAA Magnesium Hydroxide (Milk Of Magnesia) 30 ml PO Q4H PRN PRN Reason: Constipation Morphine Sulfate (Morphine) 2 mg IV Q5MIN PRN PRN Reason: Chest Pain unrelieved by NTG Nitroglycerin (Nitrostat) 0.4 mg SL .Q5MIN PRN PRN Reason: Chest Pain Last Admin: 04/24/20 19:36 Dose: 0.4 mg Documented by: Ondansetron HCl (Zofran) 4 mg IV Q8H PRN PRN Reason: Nausea And Vomiting Sodium Chloride (Sodium Chloride Flush Syringe 10 Ml) 10 ml IV PRN PRN PRN Reason: LINE FLUSH Sodium Chloride (Sodium Chloride Flush Syringe 10 Ml) 10 ml IV BID [facility] Review of Systems Constitutional: no fever, no chills Cardiovascular: chest pain, no palpitations Respiratory: shortness of breath, no cough, no congestion Gastrointestinal: no nausea, no vomiting, no diarrhea Genitourinary Female: no flank pain, no dysuria, no hematuria Musculoskeletal: no neck pain, no low back pain Integumentary: no rash, no pruritis Neurological: no headaches, no confusion Psychiatric: no anxiety, no depression Exam - Constitutional Vitals: Temp Pulse Resp BP Pulse Ox 98.1 F 98 H 16 128/69 94 04/24/20 18:03 04/24/20 22:16 04/24/20 22:16 04/24/20 22:16 04/24/20 22:16 General appearance: Present: no acute distress, well-nourished - EENT Eyes: Present: PERRL, EOM intact ENT: hearing intact, clear oral mucosa, dentition normal - Neck Neck: Present: supple, normal ROM - Respiratory Respiratory effort: normal Respiratory: bilateral: CTA - Cardiovascular Rhythm: regular Heart Sounds: Present: S1 & S2 - Extremities Extremities: no ischemia, pulses intact, pulses symmetrical, No edema, Full ROM Peripheral Pulses: within normal limits - Abdominal General gastrointestinal: Present: soft, non-tender, non-distended, normal bowel sounds - Integumentary Integumentary: Present: clear, warm, dry - Musculoskeletal Musculoskeletal: strength equal bilaterally - Psychiatric Psychiatric: appropriate mood/affect, intact judgment & insight - Neurologic Neurologic: CNII-XII intact, moves all extremities HEART Score - HEART Score EKG: Non-specific Age: 45-65 Risk factors: > 3 risk factors or hx of atherosclerotic disease Troponin: Troponin T < 0.010 ng/mL (0.00-0.029) 04/24/20 21:08 Troponin: < normal limit - Critical Actions Critical Actions: 4-6 pts:12-16.6% risk of adverse cardiac event. Should be admitted Results - Labs CBC & Chem 7: 04/25/20 04:15 04/25/20 04:15 Labs: Abnormal lab results 04/24/20 04/24/20 04/24/20 Range/Units 18:18 18:18 18:18 MCV 72 L (79-97) fl MCH 25 L (28-32) pg MCHC 35 H (30-34) % RDW 20.5 H (13.2-15.2) % Lymph % (Auto) 7.7 L (13.4-35.0) % Lymph # 0.8 L (1.2-5.4) K/mm3 Seg Neutrophils % 84.9 H (40.0-70.0) % Seg Neutrophils # 8.6 H (1.8-7.7) K/mm3 PT 25.6 H (12.2-14.9) Sec. INR 2.41 H (0.87-1.13) D-Dimer 1046.14 H (0-234) ng/mlDDU Carbon Dioxide 19 L (22-30) mmol/L Creatinine 0.6 L (0.7-1.2) mg/dL Glucose 108 H (65-100) mg/dL Total Bilirubin 2.00 H (0.1-1.2) mg/dL AST 75 H (5-40) units/L ALT 61 H (7-56) units/L Urine WBC (Auto) (0.0-6.0) /HPF 04/24/20 Range/Units Unknown MCV (79-97) fl MCH (28-32) pg MCHC (30-34) % RDW (13.2-15.2) % Lymph % (Auto) (13.4-35.0) % Lymph # (1.2-5.4) K/mm3 Seg Neutrophils % (40.0-70.0) % Seg Neutrophils # (1.8-7.7) K/mm3 PT (12.2-14.9) Sec. INR (0.87-1.13) D-Dimer (0-234) ng/mlDDU Carbon Dioxide (22-30) mmol/L Creatinine (0.7-1.2) mg/dL Glucose (65-100) mg/dL Total Bilirubin (0.1-1.2) mg/dL AST (5-40) units/L ALT (7-56) units/L Urine WBC (Auto) 35.0 H (0.0-6.0) /HPF Assessment and Plan - Patient Problems (1) Chest pain Current Visit: Yes Status: Acute Qualifiers: Chest pain type: unspecified Qualified Code(s): R07.9 - Chest pain, unspecified Plan to address problem: Patient admitted to telemetry. Will check serial cardiac enzymes. We will place patient on daily aspirin, sublingual nitroglycerin as needed for chest pain We will place a consult to cardiology for further evaluation and recommendation (2) Chronic atrial fibrillation Current Visit: No Status: Acute Plan to address problem: Rate is currently controlled. Patient also on anticoagulation. (3) Hypertension Current Visit: No Status: Acute Plan to address problem: Blood pressure stable. We will continue routine home medications and monitor vital signs closely. (4) Chronic diastolic CHF (congestive heart failure) Current Visit: No Status: Chronic Plan to address problem: Continue patient on her routine home medications. (5) DVT prophylaxis Current Visit: No Status: Acute Plan to address problem: Patient on anticoagulation. (6) Full code status Current Visit: No Status: Acute
[2020-04-24 23:56] LABS: Basophils % (Auto) 0.5 % (0.0-1.8); Eosinophils % (Auto) 0.1 % (0.0-4.3); Hematocrit 32.5 % (30.3-42.9); Hemoglobin 10.9 gm/dl (10.1-14.3); Lymphocytes # (Auto) 0.9 K/mm3 (1.2-5.4); Lymphocytes % (Auto) 10.8 % (13.4-35.0); Mean Corpuscular HGB Conc 34 % (30-34); Mean Corpuscular Volume 73 fl (79-97); Monocytes # (Auto) 0.6 K/mm3 (0.0-0.8); Monocytes % (Auto) 7.2 % (0.0-7.3); Platelet Count 146 K/mm3 (140-440); Red Blood Count 4.44 M/mm3 (3.65-5.03)
[2020-04-25 00:10] LABS: BUN/Creatinine Ratio 13; Blood Urea Nitrogen 8 mg/dL (7-17); Calcium 9.2 mg/dL (8.4-10.2); Hemolysis Index 4
[2020-04-25 04:15] LABS: Chol/HDL Ratio 2.41 %
[2020-04-25 05:00] LABS: Basophils % (Auto) 0.4 % (0.0-1.8); Eosinophils % (Auto) 0.1 % (0.0-4.3); Hematocrit 29.7 % (30.3-42.9); Lymphocytes # (Auto) 0.8 K/mm3 (1.2-5.4); Lymphocytes % (Auto) 14.4 % (13.4-35.0); Mean Corpuscular HGB Conc 34 % (30-34); Mean Corpuscular Volume 73 fl (79-97); Monocytes # (Auto) 0.5 K/mm3 (0.0-0.8); Monocytes % (Auto) 8.6 % (0.0-7.3); Platelet Count 122 K/mm3 (140-440); Red Blood Count 4.07 M/mm3 (3.65-5.03); Red Cell Distribution Width 20.4 % (13.2-15.2)
[2020-04-25] MEDS ORDERED: HYDROmorphone 1 MG/1 ML INJ IV PRN (05:00)
[2020-04-25 05:10] LABS: INR 2.3 (0.87-1.13)
[2020-04-25 05:22] LABS: BUN/Creatinine Ratio 12; Blood Urea Nitrogen 7 mg/dL (7-17); Calcium 8.9 mg/dL (8.4-10.2); Hemolysis Index 4
[2020-04-25] MEDS ORDERED: REGADENOSON 0.4 MG/5 ML INJ IV ONE (07:49)
[2020-04-25] MEDS ORDERED: cefTRIAXone/NS 1 GM/50 ML 1 GM/50 ML BAG IV SCH (10:00)
[2020-04-25] MEDS ORDERED: dilTIAZem CD 240 MG CAP PO SCH (10:00)
[2020-04-25] MEDS: ASPIRIN EC 325 MG TAB PO SCH ×2 (10:32→10:41)
--- NOTE | 2020-04-25 11:23 | Consultation ---
History of Present Illness Consult date: 04/25/20 Consult reason: atrial fibrillation, chest pain History of present illness: The patient is a 59-year-old woman with a history of atrial fibrillation, currently on a rate control strategy with oral anticoagulation. She was hospitalized here 6 weeks ago with symptomatic atrial fibrillation, rate control was achieved with diltiazem, and she was placed on oral anticoagulation with warfarin. She states that she has been fully compliant with her medical therapy and commercial technician office visits, evidence for her compliance is noted with a therapeutic INR of 2.4 on this current presentation. She presents to the hospital at this time with atypical chest pain, ECG on presentation is atrial fibrillation with a well-controlled ventricular rate, occasional PVCs, no acute ischemic changes. She has had extensive prior ischemic cardiac work-up. A cardiac catheterization 2 years ago demonstrated no significant coronary artery disease. 6 weeks ago on her most recent admission, a Lexiscan thallium stress test was also negative. Serial echocardiograms including on the last admission have consistently demonstrated well-preserved l eft ventricular systolic function with ejection fraction 50 to 55%. Currently, the patient is on the telemetry floor, looks and feels well, no further cardiac complaints. Past History Past Medical History: atrial fib, arthritis, hypertension Past Surgical History: cholecystectomy Social history: no significant social history Family history: CAD (Father had CABG), diabetes Medications and Allergies Allergies Allergy/AdvReac Type Severity Reaction Status Date / Time morphine Allergy Itching Verified 02/16/19 05:40 Home Medications Medication Instructions Recorded Confirmed Last Taken Type Warfarin [Coumadin] 5 mg PO QDAY #30 tablet 02/19/19 04/24/20 04/24/20 Rx dilTIAZem CD [Cardizem CD] 240 mg PO QDAY 01/20/20 04/24/20 04/24/20 History Active Meds: Active Medications Acetaminophen (Tylenol) 650 mg PO Q4H PRN PRN Reason: Pain MILD(1-3)/Fever >100.5/DUMONT Aspirin (Ecotrin) 325 mg PO QDAY [facility] Last Admin: 04/25/20 10:41 Dose: Not Given Documented by: Diltiazem HCl (Cardizem Cd) 240 mg PO QDAY [facility] Last Admin: 04/25/20 10:32 Dose: 240 mg Documented by: Hydromorphone HCl (Dilaudid) 0.5 mg IV Q3H PRN PRN Reason: Pain , Severe (7-10) Last Admin: 04/25/20 05:24 Dose: 0.5 mg Documented by: Ceftriaxone Sodium (Rocephin/Ns 1 Gm/50 Ml) 1 gm in 50 mls @ 100 mls/hr IV Q24HR [facility]; Protocol Last Admin: 04/25/20 10:32 Dose: 100 mls/hr Documented by: Magnesium Hydroxide (Milk Of Magnesia) 30 ml PO Q4H PRN PRN Reason: Constipation Nitroglycerin (Nitrostat) 0.4 mg SL .Q5MIN PRN PRN Reason: Chest Pain Last Admin: 04/24/20 19:36 Dose: 0.4 mg Documented by: Ondansetron HCl (Zofran) 4 mg IV Q8H PRN PRN Reason: Nausea And Vomiting Sodium Chloride (Sodium Chloride Flush Syringe 10 Ml) 10 ml IV PRN PRN PRN Reason: LINE FLUSH Last Admin: 04/25/20 05:28 Dose: 10 ml Documented by: Sodium Chloride (Sodium Chloride Flush Syringe 10 Ml) 10 ml IV BID [facility] Last Admin: 04/25/20 10:32 Dose: 10 ml Documented by: Warfarin Sodium (Coumadin) 5 mg PO QDAY@1700 DIANA; Protocol Review of Systems Cardiovascular: chest pain, no orthopnea, no palpitations, no rapid/irregular heart beat, no edema, no syncope, no lightheadedness, no shortness of breath Physical Examination Vital Signs Pulse Ox 99 04/24/20 18:01 General appearance: no acute distress HEENT: Positive: PERRL Neck: Positive: neck supple Cardiac: Positive: irregularly irregular Lungs: Positive: clear to auscultation Neuro: Positive: Grossly Intact Abdomen: Positive: Soft Female genitourinary: deferred Skin: Positive: Clear Extremities: Absent: edema Results 04/25/20 04:15 04/25/20 04:15 Cardiac Enzymes 04/24/20 Range/Units 18:18 AST 75 H (5-40) units/L Coagulation 04/24/20 04/25/20 Range/Units 18:18 04:15 PT 25.6 H 24.7 H (12.2-14.9) Sec. INR 2.41 H 2.30 H (0.87-1.13) APTT 30.3 (24.2-36.6) Sec. Lipids 04/24/20 Range/Units 23:30 Triglycerides 101 (2-149) mg/dL Cholesterol 176 (50-199) mg/dL HDL Cholesterol 73 H (40-59) mg/dL Cholesterol/HDL Ratio 2.41 % CBC 04/24/20 04/24/20 04/25/20 Range/Units 18:18 23:30 04:15 WBC 10.1 8.5 5.7 (4.5-11.0) K/mm3 RBC 4.63 4.44 4.07 (3.65-5.03) M/mm3 Hgb 11.6 10.9 10.0 L (10.1-14.3) gm/dl Hct 33.2 32.5 29.7 L (30.3-42.9) % Plt Count 164 146 122 L (140-440) K/mm3 Lymph # 0.8 L 0.9 L 0.8 L (1.2-5.4) K/mm3 [place] # 0.7 0.6 0.5 (0.0-0.8) K/mm3 Eos # 0.0 0.0 0.0 (0.0-0.4) K/mm3 Baso # 0.1 0.0 0.0 (0.0-0.1) K/mm3 Comprehensive Metabolic Panel 04/24/20 04/24/20 04/25/20 Range/Units 18:18 23:30 04:15 Sodium 144 141 142 (137-145) mmol/L Potassium 4.0 3.7 3.7 (3.6-5.0) mmol/L Chloride 104.2 100.9 102.3 (98-107) mmol/L Carbon Dioxide 19 L 23 25 (22-30) mmol/L BUN 9 8 7 (7-17) mg/dL Creatinine 0.6 L 0.6 L 0.6 L (0.7-1.2) mg/dL Glucose 108 H 112 H 104 H (65-100) mg/dL Calcium 9.0 9.2 8.9 (8.4-10.2) mg/dL AST 75 H (5-40) units/L ALT 61 H (7-56) units/L Alkaline Phosphatase 107 (35-129) units/L Total Protein 7.7 (6.3-8.2) g/dL Albumin 4.3 (3.9-5) g/dL EKG interpretations - Telemetry EKG Rhythm: Atrial Fibrillation Assessment and Plan - Patient Problems (1) Chest pain Current Visit: Yes Status: Acute Qualifiers: Chest pain type: unspecified Qualified Code(s): R07.9 - Chest pain, unspecified Plan to address problem: Chest pain is atypical, patient has had extensive invasive and noninvasive cardiac ischemic work-up including a recent negative thallium stress test. No further cardiac ischemic work-up is indicated. (2) Chronic atrial fibrillation Current Visit: No Status: Acute Plan to address problem: Patient has chronic atrial fibrillation on a rate control strategy. There is optimal atrial fibrillation rate control on her current doses of diltiazem, and she is optimally anticoagulated with warfarin, INR is 2.4. Continue current medical therapy.
--- NOTE | 2020-04-25 11:41 | Discharge Summary ---
Providers - Providers Date of Admission: 04/24/20 21:53 Attending physician: NAINA RIVAS 04/24/20 22:05 Consult to Cardiology [CONS] Routine Consulting Provider: KLEBER CALDERÓN Reason For Exam: chest pain Primary care physician: PRAVEEN ELISE Hospitalization Condition: Stable Hospital course: 59-year-old female with atrial fibrillation, coronary artery disease and suspected CHF presents to the emergency room for evaluation of Chrst pain. Patient seen and evaluated in the emergency department. Lab and imaging studies reviewed. Patient admitted to telemetry and initiated on chest pain protocol. Cardiology team consulted in ED. Patient treated in accordance with chest pain protocol with serial cardiac enzymes, EKG monitoring and telemetry monitoring. All of the aforementioned testing were unremarkable and not indicative of acute ischemia. Patient seen and evaluated by cardiology service. Patient echocardiogram was reviewed and was found to be normal without evidence of systolic or diastolic dysfunction. Patient medically optimized and back to usual state of health. Patient found to have atypical chest pain. Patient treated with supportive care, and PPI therapy. Patient seen and evaluated prior to discharge but no significant physical exam findings. Patient cleared for discharge home as per cardiology service. Patient counseled regarding increase physical activity, balanced diet, as well as bariatric surgery as outpatient. Patient instructed to follow-up with pulmonary service for sleep study. Patient discharged home and instructed to follow-up with primary care physician within 1 week, cardiology PRN, and pulmonology PRN. Patient instructed to have age- appropriate screening test. Patient also instructed to maintain social distancing as per state and local guidelines. 35 minutes dedicated to patient discharge and coordination of care. Disposition: DC- TO HOME OR SELFCARE Core Measure Documentation - Palliative Care Palliative Care/ Comfort Measures: Not Applicable - Core Measures Any of the following diagnoses?: none Exam - Constitutional Vitals: Temp Pulse Resp BP Pulse Ox 98.1 F 94 H 22 139/79 94 04/25/20 08:18 04/25/20 10:32 04/25/20 08:18 04/25/20 10:32 04/25/20 08:18 General appearance: Present: obese - EENT Eyes: Present: PERRL ENT: hearing intact, clear oral mucosa - Neck Neck: Present: supple, normal ROM - Respiratory Respiratory effort: normal Respiratory: bilateral: CTA - Cardiovascular Heart Sounds: Present: S1 & S2. Absent: rub, click - Extremities Extremities: pulses symmetrical, No edema Peripheral Pulses: within normal limits - Abdominal General gastrointestinal: Present: soft, non-tender, non-distended, normal bowel sounds Female genitourinary: Present: normal - Integumentary Integumentary: Present: clear, warm, dry - Musculoskeletal Musculoskeletal: gait normal, strength equal bilaterally - Psychiatric Psychiatric: appropriate mood/affect, intact judgment & insight - Neurologic Neurologic: CNII-XII intact, moves all extremities Plan Activity: advance as tolerated Diet: low fat, low cholesterol, low salt Special Instructions: record daily BP diary Follow up with: PRAVEEN ELISE JR, MD [Primary Care Provider] - 7 Days Forms: Warfarin Discharge Instruction Prescriptions: levoFLOXacin [Levaquin TAB] 500 mg PO QDAY #5 tablet Pantoprazole [Protonix TAB] 20 mg PO BID #60 tablet.
[2020-04-25 13:04] VITALS: BP 125/72
[2020-04-25] MEDS ORDERED: WARFARIN 5 MG TAB PO SCH (17:00)
== END 2020-04-25 14:54 | disposition home or self-care (01) ==
LOC: ED 17:40 → INTOOBSV 21:53 → 4A 21:53
PROVIDERS: ADMIT Internal Medicine Geriatric Medicine; ATTEND Internal Medicine
DX: R07.89 Other chest pain (principal); I25.110 Atherosclerotic heart disease of native coronary artery with unstable angina pectoris; I48.20 Chronic atrial fibrillation, unspecified; I11.0 Hypertensive heart disease with heart failure; I50.32 Chronic diastolic (congestive) heart failure; M19.90 Unspecified osteoarthritis, unspecified site; Z90.49 Acquired absence of other specified parts of digestive tract; Z79.01 Long term (current) use of anticoagulants; Z79.899 Other long term (current) drug therapy; Z88.5 Allergy status to narcotic agent
CPT/HCPCS: 36415; 71045; 71275; 74177; 80048; 80053; 80061; 81001; 83880; 84484; 85025; 85379; 85610; 85730; 87086; 93005; 96365; 96375; 96376; 99285; G0378; J0696; J1170; Q9967; J2405

== ENCOUNTER 2020-07-22 19:24 | Emergency (ER) | payer MEDICARE ==
[2020-07-22] MEDS ORDERED: ASPIRIN 325 MG TAB PO ONE (19:58)
[2020-07-22 20:29] LABS: Basophils # (Auto) 0.1 K/mm3 (0.0-0.1); Eosinophils % (Auto) 0.5 % (0.0-4.3); Hematocrit 36.7 % (30.3-42.9); Hemoglobin 12.5 gm/dl (10.1-14.3); Mean Corpuscular HGB Conc 34 % (30-34); Mean Corpuscular Volume 72 fl (79-97); Monocytes # (Auto) 0.6 K/mm3 (0.0-0.8); Monocytes % (Auto) 8.6 % (0.0-7.3); Platelet Count 180 K/mm3 (140-440); Red Blood Count 5.12 M/mm3 (3.65-5.03)
[2020-07-22 20:35] LABS: INR 2.36 (0.87-1.13)
[2020-07-22 20:36] LABS: Partial Thromboplastin Time 31.9 Sec. (24.2-36.6)
[2020-07-22 20:37] LABS: Blood Urea Nitrogen 6 mg/dL (7-17); Calcium 9.6 mg/dL (8.4-10.2); Hemolysis Index 7
[2020-07-22] MEDS ORDERED: dilTIAZem 25 MG/5 ML INJ IV ONE (20:38)
[2020-07-22] MEDS ORDERED: ONDANSETRON 4 MG/2 ML INJ IV ONE (20:39)
[2020-07-22] MEDS ORDERED: HYDROmorphone 1 MG/1 ML INJ IV ONE ×2 (20:39→22:33)
[2020-07-22 20:43] LABS: Red Cell Distribution Width 20.2 % (13.2-15.2)
--- NOTE | 2020-07-22 20:43 | XRay Report ---
CHEST 1 VIEW INDICATION: Chest Pain. COMPARISON: 04/24/2020 FINDINGS: Support devices: None. Heart: Normal. Lungs/Pleura: No acute pulmonary or pleural findings. IMPRESSION: 1. No acute findings. Signer Name: Abiodun Rowan MD Signed: 07/22/2020 8:38 PM Workstation Name: [id number]
--- NOTE | 2020-07-22 20:46 | Emergency Department Report ---
ED Chest Pain HPI - General Chief Complaint: Chest Pain Stated Complaint: CHEST PAIN PUI?: No Time Seen by Provider: 07/22/20 20:38 Source: patient Mode of arrival: Stretcher Limitations: No Limitations - History of Present Illness Initial Comments: Chief complaint: "I have A. fib. I have chest pressure." HPI: This is a 59-year-old female with history of atrial fibrillation, GERD, nonocclusive coronary artery disease, severe obesity, hypertension who presents with chest pressure since 2 PM. Gradual onset. 8 out of 10 in severity. Substernal. No associated palpitations, shortness of breath, vomiting. She was admitted twice this year for chest pain. In 2017 patient underwent cardiac catheterization according to electronic medical record that revealed nonobstructive coronary disease involving the LAD of the coronary arteries were normal. On thallium perfusion imaging: No demonstrable ischemia on January 20, 2020 According to EMS: Patient's heart rate [address] 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 Maty HERNANDEZ Complaint: chest pain -: Gradual, This afternoon Onset: during rest Pain Location: substernal Pain Radiation: none Severity: moderate Severity scale (0 -10): 8 Quality: pressure Consistency: constant Improves With: nothing Worsens With: nothing Treatments Prior to Arrival: none - Related Data Home Medications Medication Instructions Recorded Confirmed Last Taken dilTIAZem CD [Cardizem CD] 240 mg PO QDAY 01/20/20 04/24/20 04/24/20 Previous Rx's Medication Instructions Recorded Last Taken Type Warfarin [Coumadin] 5 mg PO QDAY #30 tablet 02/19/19 04/24/20 Rx Pantoprazole [Protonix TAB] 20 mg PO BID #60 tablet. 04/25/20 Unknown Rx levoFLOXacin [Levaquin TAB] 500 mg PO QDAY #5 tablet 04/25/20 Unknown Rx Allergies Allergy/AdvReac Type Severity Reaction Status Date / Time morphine Allergy Itching Verified 02/16/19 05:40 Heart Score - HEART Score History: Slightly suspicious EKG: Non-specific Age: 45-65 Risk factors: 1-2 risk factors Troponin: < normal limit HEART Score: 3 ED Review of Systems ROS: Stated complaint: CHEST PAIN Other details as noted in HPI Comment: All other systems reviewed and negative Constitutional: denies: fever, malaise Respiratory: denies: cough, shortness of breath Cardiovascular: chest pain ED Past Medical Hx - Past Medical History Previous Medical History?: Yes Hx Hypertension: Yes Hx Congestive Heart Failure: Yes Hx Diabetes: No Hx Arthritis: Yes Hx Asthma: No Hx COPD: No Additional medical history: A-fib - Surgical History Past Surgical History?: Yes Hx Cholecystectomy: Yes - Social History Smoking Status: Never Smoker Substance Use Type: None - Medications Home Medications: Home Medications Medication Instructions Recorded Confirmed Last Taken Type Warfarin [Coumadin] 5 mg PO QDAY #30 tablet 02/19/19 04/24/20 04/24/20 Rx dilTIAZem CD [Cardizem CD] 240 mg PO QDAY 01/20/20 04/24/20 04/24/20 History Pantoprazole [Protonix TAB] 20 mg PO BID #60 tablet. 04/25/20 Unknown Rx levoFLOXacin [Levaquin TAB] 500 mg PO QDAY #5 tablet 04/25/20 Unknown Rx ED Physical Exam - General Limitations: No Limitations General appearance: alert, in no apparent distress, anxious - Head Head exam: Present: atraumatic, normocephalic - Eye Eye exam: Present: normal appearance - ENT ENT exam: Present: mucous membranes moist - Neck Neck exam: Present: normal inspection, full ROM - Respiratory Respiratory exam: Present: normal lung sounds bilaterally. Absent: respiratory distress, wheezes, rales, rhonchi - Cardiovascular Cardiovascular Exam: Present: regular rate, irregular rhythm, normal heart sounds. Absent: systolic murmur, diastolic murmur, rubs, gallop - GI/Abdominal GI/Abdominal exam: Present: soft, normal bowel sounds. Absent: distended, tenderness, guarding, rebound - Extremities Exam Extremities exam: Present: normal inspection - Neurological Exam Neurological exam: Present: alert, oriented X3 - Psychiatric Psychiatric exam: Present: normal affect, anxious - Skin Skin exam: Present: warm, dry, intact, normal color. Absent: rash ED Course Vital Signs 07/22/20 07/22/20 07/22/20 19:53 21:05 21:34 Temperature 97.9 F Pulse Rate 63 114 H Respiratory 18 20 Rate Blood Pressure 131/96 218/134 Blood Pressure [Right] O2 Sat by Pulse 97 Oximetry 07/22/20 07/22/20 07/22/20 22:00 22:24 22:27 Temperature Pulse Rate 98 H 98 H Respiratory 20 20 Rate Blood Pressure 135/104 Blood Pressure 135/104 [Right] O2 Sat by Pulse 95 95 Oximetry MICHAEL score - Michael Score Age > 65: (0) No Aspirin use within the Past 7 Days: (0) No 3 or more CAD Risk Factors: (1) Yes 2 or more Angina events in past 24 hrs: (1) Yes Known CAD with more than 50% Stenosis: (0) No Elevated Cardiac Markers: (0) No ST Deviation Greater than 0.5mm: (0) No MICHAEL Score: 2 ED Medical Decision Making - Lab Data Result diagrams: 07/22/20 20:05 07/22/20 20:05 Laboratory Results - last 24 hr 07/22/20 07/22/20 07/22/20 20:05 20:05 20:05 WBC 7.3 RBC 5.12 H Hgb 12.5 Hct 36.7 MCV 72 L MCH 24 L MCHC 34 RDW 20.2 H Plt Count 180 [place] % (Auto) 8.6 H Eos % (Auto) 0.5 [place] # 0.6 Eos # 0.0 Baso # 0.1 Seg Neutrophils % 81.3 H Seg Neutrophils # 5.9 PT 26.3 H INR 2.36 H APTT 31.9 Sodium 144 Potassium 4.0 Chloride 105.7 Carbon Dioxide 23 Anion Gap 19 BUN 6 L Creatinine 0.6 Estimated GFR > 60 BUN/Creatinine Ratio 10 Glucose 110 H Calcium 9.6 Troponin T < 0.010 07/22/20 22:44 WBC RBC Hgb Hct MCV MCH MCHC RDW Plt Count [place] % (Auto) Eos % (Auto) [place] # Eos # Baso # Seg Neutrophils % Seg Neutrophils # PT INR APTT Sodium Potassium Chloride Carbon Dioxide Anion Gap BUN Creatinine Estimated GFR BUN/Creatinine Ratio Glucose Calcium Troponin T < 0.010 - EKG Data -: EKG Interpreted by Or - EKG Data 07/22/20 20:46 EKG obtained 1941 Atrial fibrillation ventricular rate 120 bpm normal axis no ST elevation prolonged QTC positive PVC - Radiology Data Radiology results: report reviewed Chest radiograph: No acute findings - Medical Decision Making Mrs. Anne presents with atrial fibrillation RVR and chest pain. I suspect chest pain is related to rapid heartbeat discomfort related to uncontrolled rate. WIth rate control and analgesia, pain did subside. I do not suspect acute coronary syndrome. Patient does have nonobstructive coronary artery disease according to cardiac catheterization. Repeat heart rate 81 bpm after IV and p.o. diltiazem. Repeat blood pressure 134/86. Patient is currently pain-free. Troponin negative x2. She has had recent admission for cardiac evaluation. She has had extensive work-up for ischemic heart disease. She is discharged home. She understands return to the ER for recurrent symptoms. CBC chemistry within normal limits. INR at therapeutic level 2.3. Vital Signs - 24 hr 07/22/20 07/22/20 07/22/20 19:53 21:05 21:34 Temperature 97.9 F Pulse Rate 63 114 H Respiratory 18 20 Rate Blood Pressure 131/96 218/134 Blood Pressure [Right] O2 Sat by Pulse 97 Oximetry 07/22/20 07/22/20 07/22/20 22:00 22:24 22:27 Temperature Pulse Rate 98 H 98 H Respiratory 20 20 Rate Blood Pressure 135/104 Blood Pressure 135/104 [Right] O2 Sat by Pulse 95 95 Oximetry Critical care attestation.: If time is entered above; I have spent that time in minutes in the direct care of this critically ill patient, excluding procedure time. ED Disposition Clinical Impression: Atrial fibrillation with RVR, Chest pain Disposition: -01 TO HOME OR SELFCARE Is pt being admited?: No Does the pt Need Aspirin: No Condition: Stable Instructions: Atrial Fibrillation (ED) Referrals: PRAVEEN GREEN JR, MD [Primary Care Provider] - 3-5 Days KIA AZEVEDO MD [Staff Physician] - 3-5 Days
[2020-07-22 20:50] LABS: BUN/Creatinine Ratio 10
[2020-07-22] MEDS ORDERED: dilTIAZem 30 MG TAB PO ONE (21:31)
[2020-07-22] MEDS ORDERED: NITROGLYCERIN DRIP 0 MG/0 ML BOTTLE ONE (22:58)
[2020-07-22] MEDS ORDERED: FUROSEMIDE 100 MG/10 ML INJ IV ONE (22:58)
[2020-07-22 23:54] VITALS: BP 134/89
[2020-07-23 00:21] LABS: Anisocytosis 1+; Basophils % (Manual) 0 % (0.0-1.8); Eosinophils % (Manual) 0 % (0.0-4.3); Platelet Estimate Consistent w Auto; Total Cells Counted 100
== END 2020-07-23 00:30 | disposition home or self-care (01) ==
LOC: ED 19:24
DX: I48.91 Unspecified atrial fibrillation (principal); R07.89 Other chest pain; I50.9 Heart failure, unspecified; I11.0 Hypertensive heart disease with heart failure; M19.91 Primary osteoarthritis, unspecified site; Z90.49 Acquired absence of other specified parts of digestive tract; Z79.2 Long term (current) use of antibiotics; Z79.899 Other long term (current) drug therapy; Z88.8 Allergy status to other drugs, medicaments and biological substances
CPT/HCPCS: 36415; 71045; 80048; 84484; 85007; 85025; 85610; 85730; 93005; 96374; 96375; 96376; 99284; J1170; J2405; J1940

== ENCOUNTER 2020-09-15 17:43 | Inpatient (IN) | payer MEDICARE ==
[2020-09-15] MEDS ORDERED: NITROGLYCERIN 0.4 MG TAB SUBL SL ONE (17:47)
[2020-09-15] MEDS ORDERED: SODIUM CHLORIDE 0.9% 1000 ML 1,000 ML IV ONE (17:47)
[2020-09-15] MEDS ORDERED: ONDANSETRON 4 MG/2 ML INJ IV ONE (17:48)
[2020-09-15] MEDS ORDERED: KETOROLAC 30 MG/1 ML INJ IV ONE (17:49)
[2020-09-15] MEDS ORDERED: dilTIAZem 25 MG/5 ML INJ IV ONE (18:03)
--- NOTE | 2020-09-15 18:19 | XRay Report ---
CHEST 1 VIEW INDICATION / CLINICAL INFORMATION: chest pain. FINDINGS: SUPPORT DEVICES: None. HEART / MEDIASTINUM: No significant abnormality. LUNGS / PLEURA: Small linear density projects over the left lower lung, similar to 08/19/2020. No acut e findings identified. Signer Name: Vivek Kennedy MD Signed: 09/15/2020 6:15 PM Workstation Name: [id number]
[2020-09-15] MEDS ORDERED: diphenhydrAMINE 50 MG/ML VIAL IV ONE (18:41)
[2020-09-15] MEDS ORDERED: HYDROmorphone 1 MG/1 ML INJ IV ONE ×3 (18:41→23:50)
[2020-09-15 18:52] LABS: Basophils % (Auto) 0.3 % (0.0-1.8); Eosinophils % (Auto) 0.1 % (0.0-4.3); Hematocrit 33.1 % (30.3-42.9); Hemoglobin 11.3 gm/dl (10.1-14.3); Lymphocytes # (Auto) 0.4 K/mm3 (1.2-5.4); Lymphocytes % (Auto) 6.3 % (13.4-35.0); Mean Corpuscular HGB Conc 34 % (30-34); Mean Corpuscular Volume 74 fl (79-97); Monocytes # (Auto) 0.4 K/mm3 (0.0-0.8); Monocytes % (Auto) 6.6 % (0.0-7.3); Platelet Count 119 K/mm3 (140-440); Red Blood Count 4.48 M/mm3 (3.65-5.03)
[2020-09-15 18:54] LABS: Red Cell Distribution Width 20.5 % (13.2-15.2)
[2020-09-15 19:00] LABS: INR 2.17 (0.87-1.13)
[2020-09-15 19:01] LABS: Partial Thromboplastin Time 36.4 Sec. (24.2-36.6)
--- NOTE | 2020-09-15 19:12 | Emergency Department Report ---
<CALIN VOSS - Last Filed: 09/15/20 19:30> ED Chest Pain HPI - General Chief Complaint: Chest Pain Stated Complaint: CHEST PAIN Time Seen by Provider: 09/15/20 17:47 Source: patient, EMS Mode of arrival: Stretcher Limitations: No Limitations - History of Present Illness Initial Comments: Patient is a 59-year-old F Finnish female who is presenting in A. fib with RVR. Patient states she is lying down for nap and woke up with chest discomfort. She also has some shortness of breath. Patient is heart rate was elevated in t he 150s 160s. Paramedics arrived and tried vagal maneuvers. They even at one point gave her Versed and cardioverted her at 70 J. Patient is continued to have pain. Pain is worsened after being shocked. Pain is 10 out of 10 in severity. She denies nausea vomiting diarrhea. Patient has had A. fib with RVR in the past. She states she normally gets chest discomfort with her A. fib with RVR. Patient takes Cardizem and is on warfarin Severity scale (0 -10): 7 - Related Data Home Medications Medication Instructions Recorded Confirmed Last Taken dilTIAZem CD [Cardizem CD] 240 mg PO QDAY 01/20/20 04/24/20 04/24/20 Previous Rx's Medication Instructions Recorded Last Taken Type Warfarin [Coumadin] 5 mg PO QDAY #30 tablet 02/19/19 04/24/20 Rx Pantoprazole [Protonix TAB] 20 mg PO BID #60 tablet. 04/25/20 Unknown Rx levoFLOXacin [Levaquin TAB] 500 mg PO QDAY #5 tablet 04/25/20 Unknown Rx Ondansetron [Zofran Odt] 4 mg PO Q8HR PRN #14 tab.rapdis 08/19/20 Unknown Rx traMADoL [Ultram 50 MG tab] 50 mg PO Q4HR PRN #14 tablet 08/19/20 Unknown Rx Allergies Allergy/AdvReac Type Severity Reaction Status Date / Time aspirin Allergy Unknown Verified 09/15/20 18:00 morphine Allergy Itching Verified 02/16/19 05:40 Heart Score - HEART Score History: Moderately suspicious EKG: Non-specific Age: 45-65 Risk factors: 1-2 risk factors Troponin: < normal limit HEART Score: 4 ED Review of Systems Comment: All other systems reviewed and negative ED Past Medical Hx - Past Medical History Previous Medical History?: Yes Hx Hypertension: Yes Hx Congestive Heart Failure: Yes Hx Diabetes: No Hx Arthritis: Yes Hx Asthma: No Hx COPD: No Additional medical history: A-fib - Surgical History Past Surgical History?: Yes Hx Cholecystectomy: Yes - Social History Smoking Status: Never Smoker Substance Use Type: Alcohol - Medications Home Medications: Home Medications Medication Instructions Recorded Confirmed Last Taken Type Warfarin [Coumadin] 5 mg PO QDAY #30 tablet 02/19/19 04/24/20 04/24/20 Rx dilTIAZem CD [Cardizem CD] 240 mg PO QDAY 01/20/20 04/24/20 04/24/20 History Pantoprazole [Protonix TAB] 20 mg PO BID #60 tablet. 04/25/20 Unknown Rx levoFLOXacin [Levaquin TAB] 500 mg PO QDAY #5 tablet 04/25/20 Unknown Rx Ondansetron [Zofran Odt] 4 mg PO Q8HR PRN #14 tab.rapdis 08/19/20 Unknown Rx traMADoL [Ultram 50 MG tab] 50 mg PO Q4HR PRN #14 tablet 08/19/20 Unknown Rx ED Physical Exam - General Limitations: No Limitations General appearance: alert, in distress - Head Head exam: Present: atraumatic, normocephalic - Eye Eye exam: Present: normal appearance - ENT ENT exam: Present: mucous membranes moist - Neck Neck exam: Present: normal inspection - Respiratory Respiratory exam: Present: normal lung sounds bilaterally. Absent: respiratory distress, wheezes, rales, rhonchi - Cardiovascular Cardiovascular Exam: Present: normal rhythm, irregular rhythm. Absent: systolic murmur, diastolic murmur, rubs, gallop - GI/Abdominal GI/Abdominal exam: Present: soft, normal bowel sounds. Absent: distended, tenderness, guarding, rebound - Extremities Exam Extremities exam: Present: normal inspection - Back Exam Back exam: Present: normal inspection - Neurological Exam Neurological exam: Present: alert, oriented X3 - Psychiatric Psychiatric exam: Present: normal affect, normal mood - Skin Skin exam: Present: warm, dry, intact, normal color. Absent: rash ED Course - Reevaluation(s) Reevaluation #1: 09/15/20 19:28 Patient received diltiazem and heart rate is now 100. Patient is in atrial flutter and is still having frequent PVCs. Did reevaluate the patient after pain was improved and she did state that she has been having some radiation of h er pain to her back. Patient is therapeutic and not worried about a PE however aortic dissection is still in the differential. CT of the chest will be ordered. MICHAEL score - Michael Score Age > 65: (0) No Aspirin use within the Past 7 Days: (0) No 3 or more CAD Risk Factors: (1) Yes 2 or more Angina events in past 24 hrs: (1) Yes Known CAD with more than 50% Stenosis: (0) No Elevated Cardiac Markers: (0) No ST Deviation Greater than 0.5mm: (0) No MICHAEL Score: 2 ED Medical Decision Making - Lab Data Result diagrams: 09/15/20 18:27 09/15/20 18:27 Lab Results 09/15/20 09/15/20 09/15/20 Range/Units 18:27 18:27 18:27 WBC 6.7 (4.5-11.0) K/mm3 RBC 4.48 (3.65-5.03) M/mm3 Hgb 11.3 (10.1-14.3) gm/dl Hct 33.1 (30.3-42.9) % MCV 74 L (79-97) fl MCH 25 L (28-32) pg MCHC 34 (30-34) % RDW 20.5 H (13.2-15.2) % Plt Count 119 L (140-440) K/mm3 Lymph % (Auto) 6.3 L (13.4-35.0) % [place]er % (Auto) 6.6 (0.0-7.3) % Eos % (Auto) 0.1 (0.0-4.3) % Baso % (Auto) 0.3 (0.0-1.8) % Lymph # (Auto) 0.4 L (1.2-5.4) K/mm3 [place]er # (Auto) 0.4 (0.0-0.8) K/mm3 Eos # (Auto) 0.0 (0.0-0.4) K/mm3 Baso # (Auto) 0.0 (0.0-0.1) K/mm3 Seg Neutrophils % 86.7 H (40.0-70.0) % Seg Neutrophils # 5.8 (1.8-7.7) K/mm3 PT 24.6 H (12.2-14.9) Sec. INR 2.17 H (0.87-1.13) APTT 36.4 (24.2-36.6) Sec. D-Dimer 1671.96 H (0-234) ng/mlDDU Sodium 142 (137-145) mmol/L Potassium 3.8 (3.6-5.0) mmol/L Chloride 102.0 (98-107) mmol/L Carbon Dioxide 28 (22-30) mmol/L Anion Gap 16 mmol/L BUN 7 (7-17) mg/dL Creatinine 0.7 (0.6-1.2) mg/dL Estimated GFR > 60 ml/min BUN/Creatinine Ratio 10 % Glucose 108 H (65-100) mg/dL Calcium 8.8 (8.4-10.2) mg/dL Troponin T < 0.010 (0.00-0.029) ng/mL - EKG Data -: EKG Interpreted by Me - EKG Data 09/15/20 19:30 EKG shows atrial fibrillation with a rate of 133. [place] is normal and intervals are otherwise normal. There is evidence of LVH. Patient have frequent PVCs. There is no obvious ST elevation or depression. T wave inversions laterally. ED Disposition Clinical Impression: Atrial fibrillation with rapid ventricular response, Elevated d-dimer Chest pain Qualifiers: Chest pain type: unspecified Qualified Code(s): R07.9 - Chest pain, unspecified Disposition: -09 OP ADMIT IP TO THIS HOSP Condition: Critical Instructions: Chest Pain (ED) <NITZA SIDDIQI III - Last Filed: 09/15/20 22:55> ED Chest Pain HPI - General PUI?: No ED Review of Systems ROS: Stated complaint: CHEST PAIN Other details as noted in HPI ED Course Vital Signs 09/15/20 09/15/20 09/15/20 17:53 18:00 18:13 Temperature 98.6 F Pulse Rate 123 H 135 H 125 H Respiratory 22 22 Rate Blood Pressure 138/72 138/72 127/70 O2 Sat by Pulse 95 98 Oximetry 09/15/20 09/15/20 09/15/20 18:16 18:30 18:41 Temperature Pulse Rate 113 H 96 H Respiratory 24 15 18 Rate Blood Pressure 127/70 133/79 O2 Sat by Pulse 98 98 100 Oximetry 09/15/20 09/15/20 09/15/20 18:46 19:00 19:16 Temperature Pulse Rate 90 99 H 96 H Respiratory 21 25 H 25 H Rate Blood Pressure 133/79 133/79 133/79 O2 Sat by Pulse 97 97 97 Oximetry 09/15/20 09/15/20 09/15/20 19:30 19:46 20:00 Temperature Pulse Rate 92 H 106 H 99 H Respiratory 12 30 H 27 H Rate Blood Pressure 133/79 133/79 133/79 O2 Sat by Pulse 97 98 97 Oximetry 09/15/20 09/15/20 09/15/20 20:16 20:29 20:30 Temperature Pulse Rate 101 H 113 H 112 H Respiratory 18 25 H Rate Blood Pressure 133/79 133/79 O2 Sat by Pulse 97 Oximetry 09/15/20 09/15/20 09/15/20 21:04 21:16 21:30 Temperature Pulse Rate 101 H 98 H Respiratory 18 23 Rate Blood Pressure 126/89 126/89 151/101 O2 Sat by Pulse 91 96 95 Oximetry 09/15/20 09/15/20 09/15/20 21:36 21:52 22:01 Temperature Pulse Rate 108 H 146 H 109 H Respiratory 28 H 22 Rate Blood Pressure 151/98 151/95 142/96 O2 Sat by Pulse 96 Oximetry 09/15/20 09/15/20 09/15/20 22:15 22:31 22:45 Temperature Pulse Rate 103 H 98 H 101 H Respiratory 18 21 19 Rate Blood Pressure 151/95 136/96 136/96 O2 Sat by Pulse 98 99 97 Oximetry - Reevaluation(s) Reevaluation #2: Patient signed out to me from previous physician, Dr. Voss. Patient will have a CTA done. 09/15/20 20:05 Reevaluation #3: Patient is currently having bouts of rapid ventricular response and the patient will be placed on a Cardizem drip. 09/15/20 20:45 Reevaluation #4: Patient is complaining of chest pain. Patient will be given 2 mg of morphine. 09/15/20 21:19 Reevaluation #5: Patient's heart rate has stabilized. Patient dates her chest pain is better. I discussed all results with patient. I discussed plan of care with patient. Patient agrees with plan of care and admission. Patient to be admitted to the hospitalist service. 09/15/20 22:01 - Consultations Consultation #1: Hospitalist consulted for admission. Hospitalist to admit patient. 09/15/20 22:00 ED Medical Decision Making - Lab Data Result diagrams: 09/15/20 18:27 09/15/20 18:27 - Radiology Data CTA CHEST WITH IV CONTRAST INDICATION / CLINICAL INFORMATION: chest pain. TECHNIQUE: Axial CT images were obtained through the chest after injection of 100 cc Omnipaque 350 milligrams percent IV contrast. 3 plane MIP and/or 3D reconstructions were produced. All CT scans at this location are performed using CT dose reduction for ALARA by means of automated exposure control. COMPARISON: Exam is compared to 04/24/2020. FINDINGS: PULMONARY ARTERIES: No pulmonary emboli. THORACIC AORTA: No significant abnormality. HEART: No significant abnormality. CORONARY ARTERIES: Mild coronary calcifications are present. PLEURA: No pleural effusion. No pneumothorax. LYMPH NODES: No significant adenopathy. LUNGS: No acute air space or interstitial disease. ADDITIONAL FINDINGS: Prominent right lower thyroid gland UPPER ABDOMEN: No acute findings. SKELETAL STRUCTURES: No significant osseous abnormality. IMPRESSION: 1. No CT evidence for pulmonary embolism. 2. No acute findings. Critical Care Time: Yes Critical care time in (mins) excluding proc time.: 35 Critical care attestation.: If time is entered above; I have spent that time in minutes in the direct care of this critically ill patient, excluding procedure time. Critical Care Time: 35 minutes ED Disposition Is pt being admited?: Yes Does the pt Need Aspirin: No Time of Disposition: 22:05
[2020-09-15 19:16] LABS: Blood Urea Nitrogen 7 mg/dL (7-17); Calcium 8.8 mg/dL (8.4-10.2); Hemolysis Index 3
[2020-09-15 19:20] LABS: BUN/Creatinine Ratio 10
[2020-09-15] MEDS ORDERED: dilTIAZem/D5W 100 MG/100 ML BAG IV SCH (21:00)
--- NOTE | 2020-09-15 21:23 | Cat Scan Report ---
CTA CHEST WITH IV CONTRAST INDICATION / CLINICAL INFORMATION: chest pain. TECHNIQUE: Axial CT images were obtained through the chest after injection of 100 cc Omnipaque 350 milligrams pe rcent IV contrast. 3 plane MIP and/or 3D reconstructions were produced. All CT scans at this location are performed using CT dose reduction for ALARA by means of automated exposure control. COMPARISON: Exam is compared to 04/24/2020. FINDINGS: PULMONARY ARTERIES: No pulmonary emboli. THORACIC AORTA: No significant abnormality. HEART: No significant abnormality. CORONARY ARTERIES: Mild coronary calcifications are present. PLEURA: No pleural effusion. No pneumothorax. LYMPH NODES: No significant adenopathy. LUNGS: No acute air space or interstitial disease. ADDITIONAL FINDINGS: Prominent right lower thyroid gland UPPER ABDOMEN: No acute findings. SKELETAL STRUCTURES: No significant osseous abnormality. IMPRESSION: 1. No CT evidence for pulmonary embolism. 2. No acute findings. Signer Name: Iglesia Grullon MD Signed: 09/15/2020 9:18 PM Workstation Name: [id number]
[2020-09-15] MEDS ORDERED: MORPHINE 2 MG/1 ML INJ ONE (21:25)
[2020-09-15] MEDS ORDERED: MORPHINE 2 MG/1 ML INJ IV ONE (21:26)
[2020-09-15] MEDS ORDERED: MORPHINE 4 MG/1 ML INJ IV PRN (22:17)
[2020-09-15] MEDS ORDERED: ONDANSETRON 4 MG/2 ML INJ IV PRN (22:17)
[2020-09-15] MEDS ORDERED: NITROGLYCERIN 0.4 MG TAB SUBL SL PRN (22:17)
[2020-09-15] MEDS ORDERED: ACETAMINOPHEN 325 MG TAB PO PRN (22:17)
--- NOTE | 2020-09-15 22:27 | History and Physical Report ---
History of Present Illness Date of examination: 09/15/20 Date of admission: 09/15/20 22:01 Chief complaint: Chest Pain History of present illness: 59-year old female with known history of atrial fibrillation, hypertension and CHF presenting to the emergency room today complaining of sudden onset of chest discomfort while taking a nap. Also had associated shortness of breath. Upon arrival of EMS heart rate was in the 150s to 160s. Vagal maneuver and attempts were made to cardiovert patient but she continued to have chest pain. Patient denies any fever or chills, denies any nausea or vomiting, no abdominal pain, no headache or dizziness. Patient admits that she always gets chest pain when she is in A. fib. Work-up in the emergency room today reveals elevated D-dimer , CT angiogram chest was unremarkable, EKG showed A. fib with RVR. Chest x-ray was within normal limits Patient was given IV Cardizem and subsequently started on Cardizem drip. Patient being admitted for atrial fibrillation with RVR and chest pain. Past History Past Medical History: atrial fib, arthritis, heart failure, hypertension Past Surgical History: cholecystectomy Social history: no significant social history Family history: no significant family history Medications and Allergies Allergies Allergy/AdvReac Type Severity Reaction Status Date / Time aspirin Allergy Unknown Verified 09/15/20 18:00 morphine Allergy Itching Verified 02/16/19 05:40 Home Medications Medication Instructions Recorded Confirmed Last Taken Type Warfarin [Coumadin] 5 mg PO QDAY #30 tablet 02/19/19 04/24/20 04/24/20 Rx dilTIAZem CD [Cardizem CD] 240 mg PO QDAY 01/20/20 04/24/20 04/24/20 History Pantoprazole [Protonix TAB] 20 mg PO BID #60 tablet.dr 04/25/20 Unknown Rx levoFLOXacin [Levaquin TAB] 500 mg PO QDAY #5 tablet 04/25/20 Unknown Rx Ondansetron [Zofran Odt] 4 mg PO Q8HR PRN #14 tab.rapdis 08/19/20 Unknown Rx traMADoL [Ultram 50 MG tab] 50 mg PO Q4HR PRN #14 tablet 08/19/20 Unknown Rx Active Meds: Active Medications Diltiazem HCl (Cardizem/D5w 100mg/100ml) 100 mg in 100 mls @ 5 mls/hr IV TITR DIANA; Protocol Last Admin: 09/15/20 21:36 Dose: 5 mg/hr, 5 mls/hr Documented by: Review of Systems Constitutional: no fever, no chills Ears, nose, mouth and throat: no nasal congestion, no sore throat Cardiovascular: chest pain, palpitations, no syncope Respiratory: shortness of breath, no cough Gastrointestinal: no abdominal pain, no nausea, no vomiting, no diarrhea Genitourinary Female: no pelvic pain, no flank pain, no dysuria, no hematuria Musculoskeletal: no neck pain, no low back pain Integumentary: no rash, no pruritis Neurological: no headaches, no confusion Psychiatric: no anxiety, no depression Exam - Constitutional Vitals: Temp Pulse Resp BP Pulse Ox 98.6 F 108 H 18 151/98 100 09/15/20 18:00 09/15/20 21:36 09/15/20 18:41 09/15/20 21:36 09/15/20 18:41 General appearance: Present: no acute distress, well-nourished - EENT Eyes: Present: PERRL, EOM intact. Absent: scleral icterus ENT: hearing intact, clear oral mucosa, dentition normal - Neck Neck: Present: supple, normal ROM - Respiratory Respiratory effort: normal Respiratory: bilateral: CTA - Cardiovascular Rhythm: irregularly irregular Heart Sounds: Present: S1 & S2. Absent: gallop, systolic murmur, diastolic murmur, rub, click - Extremities Extremities: no ischemia, pulses intact, pulses symmetrical, No edema, Full ROM Peripheral Pulses: within normal limits - Abdominal General gastrointestinal: Present: soft, non-tender, non-distended, normal bowel sounds. Absent: mass - Integumentary Integumentary: Present: clear, warm, dry. Absent: rash - Musculoskeletal Musculoskeletal: strength equal bilaterally - Psychiatric Psychiatric: appropriate mood/affect, intact judgment & insight, memory intact, cooperative - Neurologic Neurologic: CNII-XII intact, moves all extremities HEART Score - HEART Score EKG: Non-specific Age: 45-65 Risk factors: 1-2 risk factors Troponin: Troponin T < 0.010 ng/mL (0.00-0.029) 09/15/20 20:48 Troponin: < normal limit Results - Labs CBC & Chem 7: 09/15/20 18:27 09/15/20 22:35 Labs: Abnormal lab results 09/15/20 09/15/20 09/15/20 Range/Units 18:27 18:27 18:27 MCV 74 L (79-97) fl MCH 25 L (28-32) pg RDW 20.5 H (13.2-15.2) % Plt Count 119 L (140-440) K/mm3 Lymph % (Auto) 6.3 L (13.4-35.0) % Lymph # (Auto) 0.4 L (1.2-5.4) K/mm3 Seg Neutrophils % 86.7 H (40.0-70.0) % PT 24.6 H (12.2-14.9) Sec. INR 2.17 H (0.87-1.13) D-Dimer 1671.96 H (0-234) ng/mlDDU Glucose 108 H (65-100) mg/dL Assessment and Plan - Patient Problems (1) Atrial fibrillation with rapid ventricular response Current Visit: Yes Status: Acute Plan to address problem: Patient placed on Cardizem drip. We will continue to monitor on request cardiology evaluation (2) Chest pain Current Visit: Yes Status: Acute Qualifiers: Chest pain type: unspecified Qualified Code(s): R07.9 - Chest pain, unspecified Plan to address problem: Probably secondary to the atrial fibrillation. However we will check serial cardiac enzymes. Patient will be placed on Dilaudid as needed for chest pain. (3) Hypertension Current Visit: No Status: Acute Plan to address problem: We will resume routine home medications and monitor vital signs closely. (4) DVT prophylaxis Current Visit: No Status: Acute Plan to address problem: Patient has been on Coumadin. INR is therapeutic (5) Full code status Current Visit: No Status: Acute
[2020-09-15 23:17] LABS: Blood Urea Nitrogen 6 mg/dL (7-17); Calcium 8.6 mg/dL (8.4-10.2); Chol/HDL Ratio 2.85 %; HDL Cholesterol 62 mg/dL (40-59); Hemolysis Index 3; LDL Cholesterol,Direct 111 mg/dL (50-130)
[2020-09-15 23:21] LABS: BUN/Creatinine Ratio 10
[2020-09-15] MEDS ORDERED: HYDROmorphone 1 MG/1 ML INJ ONE (23:50)
[2020-09-16] MEDS: HYDROmorphone 1 MG/1 ML INJ IV PRN ×5 (00:41→20:29)
[2020-09-16 06:35] LABS: Hematocrit 30.5 % (30.3-42.9); Hemoglobin 10.9 gm/dl (10.1-14.3); Mean Corpuscular HGB Conc 36 % (30-34); Mean Corpuscular Volume 73 fl (79-97); Platelet Count 102 K/mm3 (140-440); Red Blood Count 4.21 M/mm3 (3.65-5.03)
[2020-09-16 06:49] LABS: Blood Urea Nitrogen 5 mg/dL (7-17); Calcium 8.8 mg/dL (8.4-10.2); Hemolysis Index 2; INR 2.09 (0.87-1.13)
[2020-09-16 06:51] LABS: BUN/Creatinine Ratio 10
[2020-09-16 06:57] LABS: Red Cell Distribution Width 20.4 % (13.2-15.2)
[2020-09-16] MEDS ORDERED: REGADENOSON 0.4 MG/5 ML INJ IV ONE (08:12)
[2020-09-16] MEDS: ACETAMINOPHEN 325 MG TAB PO PRN ×3 (08:26→23:11)
--- NOTE | 2020-09-16 09:42 | Consultation ---
History of Present Illness Consult date: 09/16/20 Consult reason: chest pain History of present illness: Patient presenting with epigastric pain that is constant and non-exertional. Pain radiates to the lower back. Pain is chronic and only relieved with narcotics. She was seen in the ER at [facility] September 13, [address] abdomen and pelvis showing a large 11.6 cm multiseptated right adnexal cystic lesion. Possibility of ovarian neoplasm cannot be excluded. There was also evidence of splenomegaly and scattered thoracic and lumbar vertebral body sclerotic changes - developing mets cannot be excluded. CTA chest was negative here. Patient is known to have afib and is maintained on warfarin therapy. Past History Past Medical History: atrial fib, arthritis, heart failure, hypertension Past Surgical History: cholecystectomy Social history: no significant social history Family history: no significant family history Medications and Allergies Allergies Allergy/AdvReac Type Severity Reaction Status Date / Time aspirin Allergy Unknown Verified 09/15/20 18:00 morphine Allergy Itching Verified 02/16/19 05:40 Home Medications Medication Instructions Recorded Confirmed Last Taken Type Warfarin [Coumadin] 5 mg PO QDAY #30 tablet 02/19/19 09/16/20 04/24/20 Rx dilTIAZem CD [Cardizem CD] 240 mg PO QDAY 01/20/20 09/16/20 04/24/20 History Active Meds: Active Medications Acetaminophen (Tylenol) 650 mg PO Q4H PRN PRN Reason: Pain MILD(1-3)/Fever >100.5/DUMONT Last Admin: 09/16/20 08:26 Dose: 650 mg Documented by: Hydromorphone HCl (Dilaudid) 0.5 mg IV Q4H PRN PRN Reason: Pain, Moderate (4-6) Last Admin: 09/16/20 05:13 Dose: 0.5 mg Documented by: Diltiazem HCl (Cardizem/D5w 100mg/100ml) 100 mg in 100 mls @ 5 mls/hr IV TITR DIANA; Protocol Last Admin: 09/15/20 21:36 Dose: 5 mg/hr, 5 mls/hr Documented by: Labetalol HCl (Labetalol) 10 mg IV Q4H PRN PRN Reason: Hypertension Ondansetron HCl (Zofran) 4 mg IV Q8H PRN PRN Reason: Nausea And Vomiting Sodium Chloride (Sodium Chloride Flush Syringe 10 Ml) 10 ml IV BID DIANA Sodium Chloride (Sodium Chloride Flush Syringe 10 Ml) 10 ml IV PRN PRN PRN Reason: LINE FLUSH Review of Systems All systems: negative Physical Examination Vital Signs Pulse Resp BP Pulse Ox 123 H 22 138/72 95 09/15/20 17:53 09/15/20 17:53 09/15/20 17:53 09/15/20 17:53 General appearance: no acute distress HEENT: Positive: PERRL Neck: Positive: neck supple Cardiac: Positive: irregularly irregular Lungs: Positive: Normal Exam Abdomen: Positive: Soft, Tender (Epigastric tenderness) Results 09/16/20 06:10 09/16/20 06:10 Coagulation 09/15/20 09/16/20 Range/Units 18:27 06:10 PT 24.6 H 23.9 H (12.2-14.9) Sec. INR 2.17 H 2.09 H (0.87-1.13) APTT 36.4 (24.2-36.6) Sec. Lipids 09/15/20 Range/Units 22:35 Triglycerides 96 (2-149) mg/dL Cholesterol 177 (50-199) mg/dL HDL Cholesterol 62 H (40-59) mg/dL Cholesterol/HDL Ratio 2.85 % CBC 09/15/20 09/16/20 Range/Units 18:27 06:10 WBC 6.7 5.8 (4.5-11.0) K/mm3 RBC 4.48 4.21 (3.65-5.03) M/mm3 Hgb 11.3 10.9 (10.1-14.3) gm/dl Hct 33.1 30.5 (30.3-42.9) % Plt Count 119 L 102 L (140-440) K/mm3 Lymph # (Auto) 0.4 L (1.2-5.4) K/mm3 Dolores # (Auto) 0.4 (0.0-0.8) K/mm3 Eos # (Auto) 0.0 (0.0-0.4) K/mm3 Baso # (Auto) 0.0 (0.0-0.1) K/mm3 Comprehensive Metabolic Panel 09/15/20 09/15/20 09/16/20 Range/Units 18:27 22:35 06:10 Sodium 142 141 141 (137-145) mmol/L Potassium 3.8 4.2 3.5 L (3.6-5.0) mmol/L Chloride 102.0 102.6 101.8 (98-107) mmol/L Carbon Dioxide 28 29 24 (22-30) mmol/L BUN 7 6 L 5 L (7-17) mg/dL Creatinine 0.7 0.6 0.5 L (0.6-1.2) mg/dL Glucose 108 H 108 H 110 H (65-100) mg/dL Calcium 8.8 8.6 8.8 (8.4-10.2) mg/dL - EKG Interpretation EKG shows: atrial fibrillation EKG interpretations - Telemetry EKG Rhythm: Atrial Fibrillation Assessment and Plan Epigastric pain, constant and only relieved with narcotics Symptoms are not consistent with angina Troponin negative x 3 ECG showing afib with no ischemic changes Echo 01/2020 - Normal LVEF, mild RVE MPI 01/2020 - normal perfusion scan Cath 07/2017 - mild non-obstructive coronary artery disease Abnormal CT abdomen and pelvis at [facility] 09/13/2020 Large 11.6 cm multiseptated right adnexal cystic lesion. Possibility of ovarian neoplasm cannot be excluded. Splenomegaly. Scattered thoracic and lumbar vertebral body subtle sclerotic changes noted of uncertain etiology. Possibility of sclerotic metastases developing cannot excluded. Chronic appearing L1 superior plate compression deformity. Paroxysmal atrial fibrillation Currently on IV diltiazem INR 2.09 History of alcohol use Recommendations: Findings and symptoms are not suggestive of acute coronary syndrome or angina Patient describes chronic epigastric and low back pain. 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
[2020-09-16] MEDS ORDERED: ASPIRIN EC 325 MG TAB PO SCH (10:00)
--- NOTE | 2020-09-16 10:01 | Progress Note ---
Assessment and Plan Assessment and plan: Epigastric pain. 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 Patient with abnormal CT scan of the abdomen pelvis at [facility] on 09/13/2020 that revealed a large 11.6 cm multiseptated right adnexal cystic lesion. Splenomegaly. Scattered thoracic and lumbar vertebral body subtle sclerotic changes of uncertain etiology but likely sclerotic metastasis. EKG shows no ischemic changes. Troponin negative x3. Normal perfusion scan January 2020. 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 Consult [employer]TER Paroxysmal atrial fibrillation. Continue Cardizem drip per cardiology recommendations. Transition to p.o. diltiazem. Resume warfarin. ? L1 compression fracture. Chronic appearing L1 superior plate compression deformity. Pain control. Consider Ortho consultation. History of EtOH use. History Interval history: No new issues overnight. Hospitalist Physical - Constitutional Vitals: Temp Pulse Resp BP Pulse Ox 97.9 F 105 H 19 136/96 97 09/16/20 07:51 09/16/20 03:49 09/15/20 22:45 09/15/20 22:45 09/15/20 22:45 General appearance: Present: no acute distress - EENT Eyes: Present: PERRL, EOM intact ENT: hearing intact, clear oral mucosa, dentition normal - Neck Neck: Present: supple, normal ROM - Respiratory Respiratory effort: normal Respiratory: bilateral: CTA - Cardiovascular Rhythm: regular Heart Sounds: Present: S1 & S2. Absent: gallop, rub - Extremities Extremities: no ischemia, No edema, Full ROM - Abdominal General gastrointestinal: soft, non-tender, non-distended, normal bowel sounds - Integumentary Integumentary: Present: clear, warm, dry - Neurologic Neurologic: CNII-XII intact, moves all extremities HEART Score - HEART Score EKG: Non-specific Age: 45-65 Risk factors: 1-2 risk factors Troponin: Troponin T < 0.010 ng/mL (0.00-0.029) 09/16/20 06:10 Troponin: < normal limit Results - Labs CBC & Chem 7: 09/16/20 06:10 09/16/20 06:10 Labs: Laboratory Last Values WBC 5.8 K/mm3 (4.5-11.0) 09/16/20 06:10 RBC 4.21 M/mm3 (3.65-5.03) 09/16/20 06:10 Hgb 10.9 gm/dl (10.1-14.3) 09/16/20 06:10 Hct 30.5 % (30.3-42.9) 09/16/20 06:10 MCV 73 fl (79-97) L 09/16/20 06:10 MCH 26 pg (28-32) L 09/16/20 06:10 MCHC 36 % (30-34) H 09/16/20 06:10 RDW 20.4 % (13.2-15.2) H 09/16/20 06:10 Plt Count 102 K/mm3 (140-440) L 09/16/20 06:10 Lymph % (Auto) 6.3 % (13.4-35.0) L 09/15/20 18:27 [place] % (Auto) 6.6 % (0.0-7.3) 09/15/20 18:27 Eos % (Auto) 0.1 % (0.0-4.3) 09/15/20 18:27 Baso % (Auto) 0.3 % (0.0-1.8) 09/15/20 18:27 Lymph # (Auto) 0.4 K/mm3 (1.2-5.4) L 09/15/20 18:27 [place]offey # (Auto) 0.4 K/mm3 (0.0-0.8) 09/15/20 18:27 Eos # (Auto) 0.0 K/mm3 (0.0-0.4) 09/15/20 18:27 Baso # (Auto) 0.0 K/mm3 (0.0-0.1) 09/15/20 18:27 Seg Neutrophils % 86.7 % (40.0-70.0) H 09/15/20 18:27 Seg Neutrophils # 5.8 K/mm3 (1.8-7.7) 09/15/20 18:27 PT 23.9 Sec. (12.2-14.9) H 09/16/20 06:10 INR 2.09 (0.87-1.13) H 09/16/20 06:10 APTT 36.4 Sec. (24.2-36.6) 09/15/20 18:27 D-Dimer 1671.96 ng/mlDDU (0-234) H 09/15/20 18:27 Sodium 141 mmol/L (137-145) 09/16/20 06:10 Potassium 3.5 mmol/L (3.6-5.0) L 09/16/20 06:10 Chloride 101.8 mmol/L (98-107) 09/16/20 06:10 Carbon Dioxide 24 mmol/L (22-30) 09/16/20 06:10 Anion Gap 19 mmol/L 09/16/20 06:10 BUN 5 mg/dL (7-17) L 09/16/20 06:10 Creatinine 0.5 mg/dL (0.6-1.2) L 09/16/20 06:10 Estimated GFR > 60 ml/min 09/16/20 06:10 BUN/Creatinine Ratio 10 % 09/16/20 06:10 Glucose 110 mg/dL (65-100) H 09/16/20 06:10 Calcium 8.8 mg/dL (8.4-10.2) 09/16/20 06:10 Troponin T < 0.010 ng/mL (0.00-0.029) 09/16/20 06:10 Triglycerides 96 mg/dL (2-149) 09/15/20 22:35 Cholesterol 177 mg/dL (50-199) 09/15/20 22:35 LDL Cholesterol Direct 111 mg/dL (50-130) 09/15/20 22:35 HDL Cholesterol 62 mg/dL (40-59) H 09/15/20 22:35 Cholesterol/HDL Ratio 2.85 % 09/15/20 22:35 TSH 7.450 mlU/mL (0.270-4.200) H 09/15/20 22:35 Sgugs/IV: IV Catheter Type [Right INT / Saline Lock Antecubital] IV Catheter Type [Left Wrist] INT / Saline Lock Active Medications - Current Medications Current Medications: Generic Name Dose Route Start Last Admin Trade Name Freq PRN Reason Stop Dose Admin Acetaminophen 650 mg 09/15/20 22:17 09/16/20 08:26 Tylenol PO 650 mg Q4H PRN Administration Pain MILD(1-3)/Fever >100.5/DUMONT Diltiazem HCl 60 mg 09/16/20 10:00 Cardizem PO Q8H DIANA Hydromorphone HCl 0.5 mg 09/15/20 22:52 09/16/20 05:13 Dilaudid IV 0.5 mg Q4H PRN Administration Pain, Moderate (4-6) Labetalol HCl 10 mg 09/16/20 00:33 Labetalol IV Q4H PRN Hypertension Ondansetron HCl 4 mg 09/15/20 22:17 Zofran IV Q8H PRN Nausea And Vomiting Sodium Chloride 10 ml 09/16/20 10:00 Sodium Chloride Flush Syringe 10 Ml IV BID DIANA Sodium Chloride 10 ml 09/15/20 22:17 Sodium Chloride Flush Syringe 10 Ml IV PRN PRN LINE FLUSH
[2020-09-16] MEDS: dilTIAZem 60 MG TAB PO SCH ×2 (10:22→18:49)
[2020-09-16 10:41] LABS: Basophils % (Manual) 0 % (0.0-1.8); Eosinophils % (Manual) 0 % (0.0-4.3); Hypochromasia Few; Target Cells 3+; Total Cells Counted 100
[2020-09-16 10:42] LABS: Platelet Estimate Consistent w Auto
--- NOTE | 2020-09-16 19:01 | Ultrasound Report ---
CLINICAL DATA: pelvic mass TECHNICAL DATA: Ultrasound, pelvic (nonobstetric), real-time with image documentation; transabdominal and transvagina l imaging with Doppler was performed. FINDINGS: Exam is compared to previous CT 04/24/2020 The uterus has been removed. The right and left ovaries are enlarged. Bilateral cystic lesions are present in the adnexa on the ri ght measuring 4.3 cm and 3.4 cm in greatest dimension and on the left measuring 4.8 cm in greatest di mension. Doppler imaging demonstrates normal vascular flow to both ovaries. There is no significant quantity of free fluid dependently within the pelvis. IMPRESSION: Persistent ovarian cyst not significantly changed as compared to CT dated 04/24/2020 GUIDELINES FOR IMAGING OF OVARIAN--ADNEXAL CYST: WOMEN OF REPRODUCTIVE AGE: 1. Cysts <=3 cm: Normal physiologic findings; at the discretion of the interpreting physician whether or not to describe them in the imaging report; do not need follow-up. 2. Cysts >3 and <=5 cm: Should be described in the imaging report with a statement that they are almo st certainly benign; do not need follow-up. 3. Cysts >5 and <=7 cm: Should be described in the imaging report with a statement that they are almo st certainly benign; yearly follow-up with US recommended. 4. Cysts >7 cm: Since these may be difficult to assess completely with US, further imaging with magne tic resonance (MR) or surgical evaluation should be considered. POSTMENOPAUSAL WOMEN: 1. Cysts <=1 cm: Are clinically inconsequential; at the discretion of the interpreting physician whet her or not to describe them in the imaging report; do not need follow-up. 2. Cysts >1 and <=7 cm: Should be described in the imaging report with statement that they are almost certainly benign; yearly follow-up, at least initially, with US recommended. Some practices may opt to increase the lower size threshold for follow-up from 1 cm to as high as 3 cm. One may opt to joe nue follow-up annually or to decrease the frequency of follow-up once stability or decrease in size h as been confirmed. Cysts in the larger end of this range should still generally be followed on a regu lar basis. 3. Cysts >7 cm: Since these may be difficult to assess completely with US, further imaging with MR or surgical evaluation should be considered. Signer Name: Iglesia Grullon MD Signed: 09/16/2020 6:57 PM Workstation Name: [id number]
[2020-09-17] MEDS: HYDROmorphone 1 MG/1 ML INJ IV PRN ×3 (01:03→12:15)
[2020-09-17] MEDS: dilTIAZem 60 MG TAB PO SCH (02:13)
[2020-09-17] MEDS: ACETAMINOPHEN 325 MG TAB PO PRN ×3 (08:24→23:22)
[2020-09-17] MEDS ORDERED: dilTIAZem 60 MG TAB PO SCH (09:11)
--- NOTE | 2020-09-17 09:56 | Progress Note ---
Assessment and Plan Assessment and plan: Epigastric pain. 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 Patient with abnormal CT scan of the abdomen pelvis at [facility] on 09/13/2020 that revealed a large 11.6 cm multiseptated right adnexal cystic lesion. Splenomegaly. Scattered thoracic and lumbar vertebral body subtle sclerotic changes of uncertain etiology but likely sclerotic metastasis. EKG shows no ischemic changes. Troponin negative x3. Normal perfusion scan January 2020. 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 Consult LAP CUTTER Paroxysmal atrial fibrillation. Continue Cardizem drip per cardiology recommendations. Transition to p.o. diltiazem. Resume warfarin. ? L1 compression fracture. Chronic appearing L1 superior plate compression deformity. Pain control. Consider Ortho consultation. History of EtOH use. 09/17/2020. Follow-up tumor markers of alpha-fetoprotein, CA-125 and CEA. Follow-up pelvic ultrasound. LAP CUTTER consulted. Cardizem IV has been transitioned to p.o. Continue Cardizem 90 mg p.o. every 8 hours. Continue anticoagulation with Coumadin. History Interval history: No new issues overnight. Hospitalist Physical - Constitutional Vitals: Temp Pulse Resp BP Pulse Ox 98.8 F 111 H 18 141/101 95 09/17/20 08:00 09/17/20 06:11 09/17/20 06:11 09/17/20 06:11 09/17/20 06:11 General appearance: Present: no acute distress - EENT Eyes: Present: PERRL, EOM intact ENT: hearing intact, clear oral mucosa, dentition normal - Neck Neck: Present: supple, normal ROM - Respiratory Respiratory effort: normal Respiratory: bilateral: CTA - Cardiovascular Rhythm: regular Heart Sounds: Present: S1 & S2. Absent: gallop, rub - Extremities Extremities: no ischemia, No edema, Full ROM - Abdominal General gastrointestinal: soft, non-tender, non-distended, normal bowel sounds - Integumentary Integumentary: Present: clear, warm, dry - Neurologic Neurologic: CNII-XII intact, moves all extremities HEART Score - HEART Score EKG: Non-specific Age: 45-65 Risk factors: 1-2 risk factors Troponin: Troponin T < 0.010 ng/mL (0.00-0.029) 09/16/20 06:10 Troponin: < normal limit Results - Labs CBC & Chem 7: 09/16/20 06:10 09/16/20 06:10 Labs: Laboratory Last Values WBC 5.8 K/mm3 (4.5-11.0) 09/16/20 06:10 RBC 4.21 M/mm3 (3.65-5.03) 09/16/20 06:10 Hgb 10.9 gm/dl (10.1-14.3) 09/16/20 06:10 Hct 30.5 % (30.3-42.9) 09/16/20 06:10 MCV 73 fl (79-97) L 09/16/20 06:10 MCH 26 pg (28-32) L 09/16/20 06:10 MCHC 36 % (30-34) H 09/16/20 06:10 RDW 20.4 % (13.2-15.2) H 09/16/20 06:10 Plt Count 102 K/mm3 (140-440) L 09/16/20 06:10 Lymph % (Auto) 6.3 % (13.4-35.0) L 09/15/20 18:27 [place] % (Auto) 6.6 % (0.0-7.3) 09/15/20 18:27 Eos % (Auto) 0.1 % (0.0-4.3) 09/15/20 18:27 Baso % (Auto) 0.3 % (0.0-1.8) 09/15/20 18:27 Lymph # (Auto) 0.4 K/mm3 (1.2-5.4) L 09/15/20 18:27 [place] # (Auto) 0.4 K/mm3 (0.0-0.8) 09/15/20 18:27 Eos # (Auto) 0.0 K/mm3 (0.0-0.4) 09/15/20 18:27 Baso # (Auto) 0.0 K/mm3 (0.0-0.1) 09/15/20 18:27 Add Manual Diff Complete 09/16/20 06:10 Total Counted 100 09/16/20 06:10 Seg Neutrophils % 86.7 % (40.0-70.0) H 09/15/20 18:27 Seg Neuts % (Manual) 90.0 % (40.0-70.0) H 09/16/20 06:10 Band Neutrophils % 0 % 09/16/20 06:10 Lymphocytes % (Manual) 3.0 % (13.4-35.0) L 09/16/20 06:10 Reactive Lymphs % (Man) 0 % 09/16/20 06:10 Monocytes % (Manual) 7.0 % (0.0-7.3) 09/16/20 06:10 Eosinophils % (Manual) 0 % (0.0-4.3) 09/16/20 06:10 Basophils % (Manual) 0 % (0.0-1.8) 09/16/20 06:10 Metamyelocytes % 0 % 09/16/20 06:10 Myelocytes % 0 % 09/16/20 06:10 Promyelocytes % 0 % 09/16/20 06:10 Blast Cells % 0 % 09/16/20 06:10 Nucleated RBC % Not Reportable 09/16/20 06:10 Seg Neutrophils # 5.8 K/mm3 (1.8-7.7) 09/15/20 18:27 Seg Neutrophils # Man 5.2 K/mm3 (1.8-7.7) 09/16/20 06:10 Band Neutrophils # 0.0 K/mm3 09/16/20 06:10 Lymphocytes # (Manual) 0.2 K/mm3 (1.2-5.4) L 09/16/20 06:10 Abs React Lymphs (Man) 0.0 K/mm3 09/16/20 06:10 Monocytes # (Manual) 0.4 K/mm3 (0.0-0.8) 09/16/20 06:10 Eosinophils # (Manual) 0.0 K/mm3 (0.0-0.4) 09/16/20 06:10 Basophils # (Manual) 0.0 K/mm3 (0.0-0.1) 09/16/20 06:10 Metamyelocytes # 0.0 K/mm3 09/16/20 06:10 Myelocytes # 0.0 K/mm3 09/16/20 06:10 Promyelocytes # 0.0 K/mm3 09/16/20 06:10 Blast Cells # 0.0 K/mm3 09/16/20 06:10 WBC Morphology Not Reportable 09/16/20 06:10 Hypersegmented Neuts Not Reportable 09/16/20 06:10 Hyposegmented Neuts Not Reportable 09/16/20 06:10 Hypogranular Neuts Not Reportable 09/16/20 06:10 Smudge Cells Not Reportable 09/16/20 06:10 Toxic Granulation Not Reportable 09/16/20 06:10 Toxic Vacuolation Not Reportable 09/16/20 06:10 Dohle Bodies Not Reportable 09/16/20 06:10 Pelger-Huet Anomaly Not Reportable 09/16/20 06:10 Rashida Rods Not Reportable 09/16/20 06:10 Platelet Estimate Consistent w auto 09/16/20 06:10 Clumped Platelets Not Reportable 09/16/20 06:10 Plt Clumps, EDTA Not Reportable 09/16/20 06:10 Large Platelets Not Reportable 09/16/20 06:10 Giant Platelets Not Reportable 09/16/20 06:10 Platelet Satelliting Not Reportable 09/16/20 06:10 Plt Morphology Comment Not Reportable 09/16/20 06:10 RBC Morphology Not Reportable 09/16/20 06:10 Dimorphic RBCs Not Reportable 09/16/20 06:10 Polychromasia Few 09/16/20 06:10 Hypochromasia Few 09/16/20 06:10 Poikilocytosis Not Reportable 09/16/20 06:10 Anisocytosis Not Reportable 09/16/20 06:10 Microcytosis Not Reportable 09/16/20 06:10 Macrocytosis Not Reportable 09/16/20 06:10 Spherocytes Not Reportable 09/16/20 06:10 Pappenheimer Bodies Not Reportable 09/16/20 06:10 Sickle Cells Not Reportable 09/16/20 06:10 Target Cells 3+ 09/16/20 06:10 Tear Drop Cells Not Reportable 09/16/20 06:10 Ovalocytes Not Reportable 09/16/20 06:10 Helmet Cells Not Reportable 09/16/20 06:10 Tatum-Oldenburg Bodies Not Reportable 09/16/20 06:10 Jefferson Rings Not Reportable 09/16/20 06:10 Wiley Cells Not Reportable 09/16/20 06:10 Bite Cells Not Reportable 09/16/20 06:10 Crenated Cell Not Reportable 09/16/20 06:10 Elliptocytes Few 09/16/20 06:10 Acanthocytes (Spur) Not Reportable 09/16/20 06:10 Rouleaux Not Reportable 09/16/20 06:10 Hemoglobin C Crystals Not Reportable 09/16/20 06:10 Schistocytes Not Reportable 09/16/20 06:10 Malaria parasites Not Reportable 09/16/20 06:10 Marcio Bodies Not Reportable 09/16/20 06:10 Hem Pathologist Commnt No 09/16/20 06:10 PT 23.9 Sec. (12.2-14.9) H 09/16/20 06:10 INR 2.09 (0.87-1.13) H 09/16/20 06:10 APTT 36.4 Sec. (24.2-36.6) 09/15/20 18:27 D-Dimer 1671.96 ng/mlDDU (0-234) H 09/15/20 18:27 Sodium 141 mmol/L (137-145) 09/16/20 06:10 Potassium 3.5 mmol/L (3.6-5.0) L 09/16/20 06:10 Chloride 101.8 mmol/L (98-107) 09/16/20 06:10 Carbon Dioxide 24 mmol/L (22-30) 09/16/20 06:10 Anion Gap 19 mmol/L 09/16/20 06:10 BUN 5 mg/dL (7-17) L 09/16/20 06:10 Creatinine 0.5 mg/dL (0.6-1.2) L 09/16/20 06:10 Estimated GFR > 60 ml/min 09/16/20 06:10 BUN/Creatinine Ratio 10 % 09/16/20 06:10 Glucose 110 mg/dL (65-100) H 09/16/20 06:10 Calcium 8.8 mg/dL (8.4-10.2) 09/16/20 06:10 Troponin T < 0.010 ng/mL (0.00-0.029) 09/16/20 06:10 Triglycerides 96 mg/dL (2-149) 09/15/20 22:35 Cholesterol 177 mg/dL (50-199) 09/15/20 22:35 LDL Cholesterol Direct 111 mg/dL (50-130) 09/15/20 22:35 HDL Cholesterol 62 mg/dL (40-59) H 09/15/20 22:35 Cholesterol/HDL Ratio 2.85 % 09/15/20 22:35 TSH 7.450 mlU/mL (0.270-4.200) H 09/15/20 22:35 HCG, Quant 1.69 mIU/mL (0-4) 09/16/20 12:36 Nasal Screen MRSA (PCR) Negative (Negative) 09/16/20 01:10 Suggs/IV: IV Catheter Type [Right INT / Saline Lock Antecubital] IV Catheter Type [Left Wrist] INT / Saline Lock Active Medications - Current Medications Current Medications: Generic Name Dose Route Start Last Admin Trade Name Freq PRN Reason Stop Dose Admin Acetaminophen 650 mg 09/15/20 22:17 09/17/20 08:24 Tylenol PO 650 mg Q4H PRN Administration Pain MILD(1-3)/Fever >100.5/DUMONT Diltiazem HCl 90 mg 09/17/20 10:00 Cardizem PO Q8H [facility] Hydromorphone HCl 0.5 mg 09/15/20 22:52 09/17/20 08:20 Dilaudid IV 0.5 mg Q4H PRN Administration Pain, Moderate (4-6) Labetalol HCl 10 mg 09/16/20 00:33 09/16/20 16:25 Labetalol IV 10 mg Q4H PRN Administration Hypertension Ondansetron HCl 4 mg 09/15/20 22:17 Zofran IV Q8H PRN Nausea And Vomiting Sodium Chloride 10 ml 09/16/20 10:00 09/17/20 09:13 Sodium Chloride Flush Syringe 10 Ml IV 10 ml BID DIANA Administration Sodium Chloride 10 ml 09/15/20 22:17 Sodium Chloride Flush Syringe 10 Ml IV PRN PRN LINE FLUSH Warfarin Sodium 5 mg 09/17/20 10:00 Coumadin PO DAILY [facility] Protocol Warfarin Sodium 2.5 mg 09/17/20 17:00 Coumadin PO DAILY@1700 [facility] Protocol
--- NOTE | 2020-09-17 10:18 | Consultation ---
History of Present Illness Consult date: 09/17/20 Reason for consult: ovarian cyst History of present illness: 59-year-old -0-1-2 who presents to the emergency department with a complaint of heart palpitations. Patient has a history of congestive heart failure, hypertension and atrial fibrillation. CT scan of the abdomen and pelvis was obtained in March 2020 with the previous admission with findings of a right 11 cm complex multiseptated ovarian cyst. The patient currently denies any significant pain or discomfort associated with her ovarian cyst. Pelvic ultrasound was repeated during this admission that demonstrated a persistent right ovarian cyst measuring 4.3 and 3.4 cm respectively. The patient has an additional left ovarian cyst measuring 4.8 cm. She has a prior history of a total abdominal hysterectomy approximately 8 years ago for uterine fibroids and abnormal uterine bleeding. Past History Past Medical History: hypertension, other (Congestive heart failure; atrial for; arthritis) Past Surgical History: cholecystectomy, other (Total abdominal hysterectomy) - Obstetrical History : 3 Para: 2 Hx # Term Pregnancies: 2 Number of Pregnancies: 0 Spontaneous Abortions: 1 Induced : 0 Number of Living Children: 2 Medications and Allergies Allergies Allergy/AdvReac Type Severity Reaction Status Date / Time aspirin Allergy Unknown Verified 09/15/20 18:00 morphine Allergy Itching Verified 02/16/19 05:40 Home Medications Medication Instructions Recorded Confirmed Last Taken Type Warfarin [Coumadin] 5 mg PO QDAY #30 tablet 02/19/19 09/16/20 04/24/20 Rx [id number] CD [Cardizem CD] 240 mg PO QDAY 01/20/20 09/16/20 04/24/20 History Active Meds: Active Medications Acetaminophen (Tylenol) 650 mg PO Q4H PRN PRN Reason: Pain MILD(1-3)/Fever >100.5/DUMONT Last Admin: 09/17/20 08:24 Dose: 650 mg Documented by: Diltiazem HCl (Cardizem) 90 mg PO Q8H DIANA Hydromorphone HCl (Dilaudid) 0.5 mg IV Q4H PRN PRN Reason: Pain, Moderate (4-6) Last Admin: 09/17/20 08:20 Dose: 0.5 mg Documented by: Labetalol HCl (Labetalol) 10 mg IV Q4H PRN PRN Reason: Hypertension Last Admin: 09/16/20 16:25 Dose: 10 mg Documented by: Ondansetron HCl (Zofran) 4 mg IV Q8H PRN PRN Reason: Nausea And Vomiting Sodium Chloride (Sodium Chloride Flush Syringe 10 Ml) 10 ml IV BID [facility] Last Admin: 09/17/20 09:13 Dose: 10 ml Documented by: Sodium Chloride (Sodium Chloride Flush Syringe 10 Ml) 10 ml IV PRN PRN PRN Reason: LINE FLUSH Warfarin Sodium (Coumadin) 5 mg PO DAILY [facility]; Protocol Review of Systems Cardiovascular: chest pain, palpitations - Vital Signs Vital signs: Vital Signs Pulse Resp BP Pulse Ox 123 H 22 138/72 95 09/15/20 17:53 09/15/20 17:53 09/15/20 17:53 09/15/20 17:53 Temp Pulse Resp BP Pulse Ox 98.8 F 111 H 18 141/101 95 09/17/20 08:00 09/17/20 06:11 09/17/20 06:11 09/17/20 06:11 09/17/20 06:11 - Physical Exam Breasts: Positive: deferred Results Result Diagrams: 09/16/20 06:10 09/16/20 06:10 Abnormal lab results 09/16/20 Range/Units 06:10 Seg Neuts % (Manual) 90.0 H (40.0-70.0) % Lymphocytes % (Manual) 3.0 L (13.4-35.0) % Lymphocytes # (Manual) 0.2 L (1.2-5.4) K/mm3 All other labs normal. Assessment and Plan - Patient Problems (1) Complex ovarian cyst Current Visit: Yes Status: Acute Plan to address problem: Imaging demonstrates persistent of a multiseptated right ovarian cyst Ovarian tumor markers have been drawn during this hospitalization. The patient does not demonstrate any acute symptoms Would not recommend surgical intervention for persistent ovarian cyst until comorbidities are clinically stable Patient may follow-up as an outpatient
--- NOTE | 2020-09-17 10:49 | Progress Note ---
Assessment and Plan Epigastric pain, constant and only relieved with narcotics Symptoms are not consistent with angina Troponin negative x 3 ECG showing afib with no ischemic changes Echo 01/2020 - Normal LVEF, mild RVE MPI 01/2020 - normal perfusion scan Cath 07/2017 - mild non-obstructive coronary artery disease Abnormal CT abdomen and pelvis at [facility] 09/13/2020 Large 11.6 cm multiseptated right adnexal cystic lesion. Possibility of ovarian neoplasm cannot be excluded. Splenomegaly. Scattered thoracic and lumbar vertebral body subtle sclerotic changes noted of uncertain etiology. Possibility of sclerotic metastases developing cannot excluded. Chronic appearing L1 superior plate compression deformity. Paroxysmal atrial fibrillation Still in RVR On po diltiazem On coumadin at home History of alcohol use Low back pain Scattered thoracic and lumbar vertebral body subtle sclerotic changes noted of uncertain etiology. Possibility of sclerotic metastases developing cannot excluded. Chronic appearing L1 superior plate compression deformity. Recommendations: Findings and symptoms are not suggestive of acute coronary syndrome or angina Cupola Repairer evaluated patient and no acute intervention recommended Increase diltiazem to 90 mg po every 8 hours Resume warfarin po May transfer to tele with possible discharge in am depending on heart rate Encourage ambulation Consider MRI thoracic and lumbar spine to evaluate back pain and abnormal vertebral body findings on CT Subjective Date of service: 09/17/20 Principal diagnosis: Atrial fibrillation Interval history: Patient is complaining of low back pain this morning Tele is showing atrial fibrillation with rapid ventricular rate Objective Vital Signs Temp Pulse Pulse Resp BP Pulse Ox 09/17/20 10:21 114 H 24 127/82 96 09/17/20 10:18 115 H 127/82 09/17/20 10:11 111 H 33 H 137/80 96 09/17/20 10:00 123 H 17 137/80 97 09/17/20 09:51 144 H 34 H 121/97 95 09/17/20 09:41 143 H 18 135/90 93 09/17/20 09:31 113 H 20 135/90 98 09/17/20 09:21 123 H 21 132/94 94 09/17/20 09:11 128 H 23 132/94 98 09/17/20 09:01 106 H 21 132/94 96 09/17/20 08:51 110 H 29 H 124/84 94 09/17/20 08:41 121 H 24 141/88 100 09/17/20 08:31 119 H 15 141/101 96 09/17/20 08:21 116 H 23 141/101 96 09/17/20 08:11 116 H 31 H 141/101 94 09/17/20 08:01 118 H 20 141/101 94 09/17/20 08:00 98.8 F 09/17/20 07:51 158 H 38 H 141/101 95 09/17/20 07:41 114 H 19 141/101 95 09/17/20 07:31 107 H 21 141/101 92 09/17/20 07:21 109 H 14 141/101 96 09/17/20 07:11 109 H 28 H 141/101 92 09/17/20 07:01 105 H 25 H 141/101 93 09/17/20 06:51 114 H 18 141/101 93 09/17/20 06:41 108 H 27 H 141/101 94 09/17/20 06:31 102 H 29 H 141/101 93 09/17/20 06:21 110 H 18 141/101 96 09/17/20 06:11 111 H 18 141/101 95 09/17/20 06:01 107 H 24 141/101 95 09/17/20 05:51 105 H 20 141/101 94 09/17/20 05:41 130 H 23 141/101 94 09/17/20 05:31 141/101 97 09/17/20 05:21 141/101 98 09/17/20 05:11 141/101 95 09/17/20 05:01 102 H 19 141/101 94 09/17/20 04:51 99 H 23 141/101 95 09/17/20 04:41 110 H 28 H 141/101 94 09/17/20 04:31 113 H 20 141/101 97 09/17/20 04:21 107 H 27 H 141/101 93 09/17/20 04:11 111 H 27 H 126/69 95 09/17/20 04:01 126/69 98 09/17/20 04:00 97.8 F 22 L 22 93 09/17/20 03:51 120/94 98 09/17/20 03:41 161/98 100 09/17/20 03:30 151/97 98 09/17/20 03:21 151/97 96 09/17/20 03:11 148/88 93 09/17/20 03:00 148/88 94 09/17/20 02:51 147/87 97 09/17/20 02:41 147/87 96 09/17/20 02:31 147/87 98 09/17/20 02:21 158/92 98 09/17/20 02:13 117 H 158/92 09/17/20 02:11 161/112 95 09/17/20 02:01 122 H 19 161/112 96 09/17/20 01:51 111 H 22 154/92 96 09/17/20 01:41 103 H 21 132/78 96 09/17/20 01:30 117 H 33 H 141/75 93 09/17/20 01:28 114 H 09/17/20 01:20 119 H 21 132/78 92 09/17/20 01:10 126 H 26 H 151/84 89 09/17/20 01:03 20 09/17/20 01:00 118 H 25 H 139/89 96 09/17/20 00:50 135 H 26 H 139/89 96 09/17/20 00:40 158 H 27 H 169/94 94 09/17/20 00:30 114 H 30 H 169/94 95 09/17/20 00:20 107 H 27 H 169/94 95 09/17/20 00:10 104 H 17 169/94 96 09/17/20 00:00 103 H 25 L 19 166/97 94 09/16/20 23:50 104 H 18 166/97 92 09/16/20 23:40 103 H 25 H 166/97 92 09/16/20 23:30 109 H 22 166/97 93 09/16/20 23:20 107 H 20 166/97 96 09/16/20 23:10 116 H 21 165/87 95 09/16/20 23:00 108 H 24 135/111 95 09/16/20 22:50 114 H 19 135/111 94 09/16/20 22:40 108 H 22 146/90 97 09/16/20 22:30 115 H 25 H 154/87 95 09/16/20 22:20 115 H 20 154/87 94 09/16/20 22:10 128 H 28 H 154/88 100 09/16/20 22:00 115 H 19 154/88 96 09/16/20 21:50 111 H 31 H 154/88 97 09/16/20 21:40 109 H 18 145/88 94 09/16/20 21:30 111 H 43 H 145/88 93 09/16/20 21:20 103 H 24 145/87 91 09/16/20 21:10 122 H 17 123/66 96 09/16/20 21:00 127 H 22 114/79 96 09/16/20 20:50 124 H 32 H 114/79 96 09/16/20 20:40 119 H 15 137/77 95 09/16/20 20:30 133 H 21 154/113 98 09/16/20 20:29 22 09/16/20 20:20 111 H 17 80/58 96 09/16/20 20:10 124 H 27 H 135/87 94 09/16/20 20:00 111 H 21 L 28 H 143/86 94 09/16/20 19:31 94 09/16/20 16:00 97.9 F 09/16/20 12:00 97.7 F - Physical Examination HEENT: Positive: PERRL Neck: Positive: neck supple Cardiac: Positive: irregularly irregular Lungs: Positive: Normal Exam Abdomen: Positive: Soft, Tender (Epigastric tenderness)
[2020-09-17] MEDS: WARFARIN 5 MG TAB PO SCH (11:26)
[2020-09-17] MEDS ORDERED: WARFARIN 2.5 MG TAB PO SCH (17:00)
[2020-09-18] MEDS: HYDROmorphone 1 MG/1 ML INJ IV PRN ×2 (02:02→23:09)
[2020-09-18 06:20] LABS: INR 1.48 (0.87-1.13)
[2020-09-18] MEDS: ACETAMINOPHEN 325 MG TAB PO PRN (10:39)
[2020-09-18] MEDS: WARFARIN 5 MG TAB PO SCH (10:40)
--- NOTE | 2020-09-18 12:15 | Progress Note ---
Assessment and Plan Epigastric pain, only relieved with narcotics Symptoms are not consistent with angina Troponin negative x 3 ECG showing afib with no ischemic changes Echo 01/2020 - Normal LVEF, mild RVE MPI 01/2020 - normal perfusion scan Cath 07/2017 - mild non-obstructive coronary artery disease Abnormal CT abdomen and pelvis at [facility] 09/13/2020 Large 11.6 cm multiseptated right adnexal cystic lesion. Possibility of ovarian neoplasm cannot be excluded. Splenomegaly. Scattered thoracic and lumbar vertebral body subtle sclerotic changes noted of uncertain etiology. Possibility of sclerotic metastases developing cannot excluded. Chronic appearing L1 superior plate compression deformity. Paroxysmal atrial fibrillation On diltiazem On coumadin as an outpatient History of alcohol use Low back pain Scattered thoracic and lumbar vertebral body subtle sclerotic changes noted of uncertain etiology. Possibility of sclerotic metastases developing cannot excluded. Chronic appearing L1 superior plate compression deformity. Recommend: Continue medical therapy for paroxysmal atrial fibrillation. Subjective Date of service: 09/18/20 Principal diagnosis: Atrial fibrillation Interval history: No cardiac complaints. Atrial fibrillation with a well controlled ventricular rate on telemetry. Objective Vital Signs Temp Pulse Pulse Resp BP Pulse Ox 09/18/20 10:41 102 H 09/18/20 08:18 95 09/18/20 07:34 99.3 F 69 18 114/83 96 09/18/20 04:00 106 H 09/18/20 00:00 119 H 119 H 18 96 09/17/20 23:45 99.8 F H 103 H 20 131/74 92 09/17/20 20:57 95 09/17/20 20:00 119 H 09/17/20 19:53 100.4 F H 81 18 127/78 98 09/17/20 17:57 89 124/87 09/17/20 16:00 99 H 09/17/20 15:57 98.5 F 65 18 120/90 90 09/17/20 14:50 146/96 96 09/17/20 14:41 91 H 22 146/96 96 09/17/20 14:31 103 H 15 146/96 97 09/17/20 14:21 109 H 28 H 146/96 97 09/17/20 14:11 101 H 38 H 146/96 90 09/17/20 14:01 133 H 28 H 146/96 95 09/17/20 13:51 131 H 31 H 146/96 90 10/18/20 13:41 124 H 20 146/96 97 09/17/20 13:31 92 H 23 146/96 95 09/17/20 13:21 98 H 23 146/96 95 09/17/20 13:11 119 H 42 H 145/122 94 09/17/20 13:01 89 22 145/122 94 09/17/20 12:51 103 H 27 H 145/122 91 09/17/20 12:41 102 H 18 145/122 92 09/17/20 12:31 92 H 145/122 93 09/17/20 12:21 95 H 145/122 97 - Physical Examination General: No Apparent Distress HEENT: Positive: PERRL Neck: Positive: neck supple Cardiac: Positive: irregularly irregular - Labs and Meds Coagulation 09/18/20 Range/Units 05:20 PT 18.2 H (12.2-14.9) Sec. INR 1.48 H (0.87-1.13)
--- NOTE | 2020-09-18 19:06 | Progress Note ---
Assessment and Plan Assessment and plan: --Epigastric pain. Patient with probable ovarian mass. Patient with abnormal CT scan of the abdomen pelvis at [facility] on 09/13/2020 that revealed a large 11.6 cm multiseptated right adnexal cystic lesion. Splenomegaly. Scattered thoracic and lumbar vertebral body subtle sclerotic changes of uncertain etiology but likely sclerotic metastasis. EKG shows no ischemic changes. Troponin negative x3. Normal perfusion scan January 2020. 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 Valuated by TELECOMMUNICATIONS OFFICER, outpatient follow-up --Paroxysmal atrial fibrillation. Continue Cardizem drip per cardiology recommendations. Transition to p.o. diltiazem. Resume warfarin. --? L1 compression fracture. Chronic appearing L1 superior plate compression deformity. Pain control. Outpatient Ortho evaluation --History of EtOH use. Plan of care reviewed with the patient and her nurse 09/17/2020. Follow-up tumor markers of alpha-fetoprotein, CA-125 and CEA. Follow-up pelvic ultrasound. TELECOMMUNICATIONS OFFICER consulted. Cardizem IV has been transitioned to p.o. Continue Cardizem 90 mg p.o. every 8 hours. Continue anticoagulation with Coumadin. 09/18/20; possible discharge home tomorrow if stable With outpatient follow-up cardiology, TELECOMMUNICATIONS OFFICER, orthopedic as needed History Interval history: I have seen and examined the patient at the bedside this afternoon Patient's chart and medications reviewed Patient feels slightly better Complains of generalized weakness mild shortness of breath Morbidly obese Hospitalist Physical - Constitutional Vitals: Temp Pulse Resp BP Pulse Ox 98.5 F 84 18 127/82 95 09/18/20 16:35 09/18/20 16:35 09/18/20 16:35 09/18/20 16:35 09/18/20 16:35 General appearance: Present: no acute distress, well-nourished, obese (Morbidly obese) - EENT Eyes: Present: PERRL, EOM intact - Neck Neck: Present: supple, normal ROM - Respiratory Respiratory effort: normal Respiratory: bilateral: diminished, rales, negative: rhonchi, wheezing - Cardiovascular Rhythm: regular Heart Sounds: Present: S1 & S2 - Extremities Extremities: no ischemia Extremity abnormal: edema - Abdominal General gastrointestinal: soft, non-tender, non-distended, normal bowel sounds - Integumentary Integumentary: Present: clear, warm - Psychiatric Psychiatric: appropriate mood/affect, cooperative - Neurologic Neurologic: moves all extremities HEART Score - HEART Score EKG: Non-specific Age: 45-65 Risk factors: 1-2 risk factors Troponin: Troponin T < 0.010 ng/mL (0.00-0.029) 09/16/20 06:10 Troponin: < normal limit Results - Labs CBC & Chem 7: 09/16/20 06:10 09/16/20 06:10 Labs: Laboratory Last Values WBC 5.8 K/mm3 (4.5-11.0) 09/16/20 06:10 RBC 4.21 M/mm3 (3.65-5.03) 09/16/20 06:10 Hgb 10.9 gm/dl (10.1-14.3) 09/16/20 06:10 Hct 30.5 % (30.3-42.9) 09/16/20 06:10 MCV 73 fl (79-97) L 09/16/20 06:10 MCH 26 pg (28-32) L 09/16/20 06:10 MCHC 36 % (30-34) H 09/16/20 06:10 RDW 20.4 % (13.2-15.2) H 09/16/20 06:10 Plt Count 102 K/mm3 (140-440) L 09/16/20 06:10 Lymph % (Auto) 6.3 % (13.4-35.0) L 09/15/20 18:27 Dixie % (Auto) 6.6 % (0.0-7.3) 09/15/20 18:27 Eos % (Auto) 0.1 % (0.0-4.3) 09/15/20 18:27 Baso % (Auto) 0.3 % (0.0-1.8) 09/15/20 18:27 Lymph # (Auto) 0.4 K/mm3 (1.2-5.4) L 09/15/20 18:27 Dixie # (Auto) 0.4 K/mm3 (0.0-0.8) 09/15/20 18:27 Eos # (Auto) 0.0 K/mm3 (0.0-0.4) 09/15/20 18:27 Baso # (Auto) 0.0 K/mm3 (0.0-0.1) 09/15/20 18:27 Add Manual Diff Complete 09/16/20 06:10 Total Counted 100 09/16/20 06:10 Seg Neutrophils % 86.7 % (40.0-70.0) H 09/15/20 18:27 Seg Neuts % (Manual) 90.0 % (40.0-70.0) H 09/16/20 06:10 Band Neutrophils % 0 % 09/16/20 06:10 Lymphocytes % (Manual) 3.0 % (13.4-35.0) L 09/16/20 06:10 Reactive Lymphs % (Man) 0 % 09/16/20 06:10 Monocytes % (Manual) 7.0 % (0.0-7.3) 09/16/20 06:10 Eosinophils % (Manual) 0 % (0.0-4.3) 09/16/20 06:10 Basophils % (Manual) 0 % (0.0-1.8) 09/16/20 06:10 Metamyelocytes % 0 % 09/16/20 06:10 Myelocytes % 0 % 09/16/20 06:10 Promyelocytes % 0 % 09/16/20 06:10 Blast Cells % 0 % 09/16/20 06:10 Nucleated RBC % Not Reportable 09/16/20 06:10 Seg Neutrophils # 5.8 K/mm3 (1.8-7.7) 09/15/20 18:27 Seg Neutrophils # Man 5.2 K/mm3 (1.8-7.7) 09/16/20 06:10 Band Neutrophils # 0.0 K/mm3 09/16/20 06:10 Lymphocytes # (Manual) 0.2 K/mm3 (1.2-5.4) L 09/16/20 06:10 Abs React Lymphs (Man) 0.0 K/mm3 09/16/20 06:10 Monocytes # (Manual) 0.4 K/mm3 (0.0-0.8) 09/16/20 06:10 Eosinophils # (Manual) 0.0 K/mm3 (0.0-0.4) 09/16/20 06:10 Basophils # (Manual) 0.0 K/mm3 (0.0-0.1) 09/16/20 06:10 Metamyelocytes # 0.0 K/mm3 09/16/20 06:10 Myelocytes # 0.0 K/mm3 09/16/20 06:10 Promyelocytes # 0.0 K/mm3 09/16/20 06:10 Blast Cells # 0.0 K/mm3 09/16/20 06:10 WBC Morphology Not Reportable 09/16/20 06:10 Hypersegmented Neuts Not Reportable 09/16/20 06:10 Hyposegmented Neuts Not Reportable 09/16/20 06:10 Hypogranular Neuts Not Reportable 09/16/20 06:10 Smudge Cells Not Reportable 09/16/20 06:10 Toxic Granulation Not Reportable 09/16/20 06:10 Toxic Vacuolation Not Reportable 09/16/20 06:10 Dohle Bodies Not Reportable 09/16/20 06:10 Pelger-Huet Anomaly Not Reportable 09/16/20 06:10 Rashida Rods Not Reportable 09/16/20 06:10 Platelet Estimate Consistent w auto 09/16/20 06:10 Clumped Platelets Not Reportable 09/16/20 06:10 Plt Clumps, EDTA Not Reportable 09/16/20 06:10 Large Platelets Not Reportable 09/16/20 06:10 Giant Platelets Not Reportable 09/16/20 06:10 Platelet Satelliting Not Reportable 09/16/20 06:10 Plt Morphology Comment Not Reportable 09/16/20 06:10 RBC Morphology Not Reportable 09/16/20 06:10 Dimorphic RBCs Not Reportable 09/16/20 06:10 Polychromasia Few 09/16/20 06:10 Hypochromasia Few 09/16/20 06:10 Poikilocytosis Not Reportable 09/16/20 06:10 Anisocytosis Not Reportable 09/16/20 06:10 Microcytosis Not Reportable 09/16/20 06:10 Macrocytosis Not Reportable 09/16/20 06:10 Spherocytes Not Reportable 09/16/20 06:10 Pappenheimer Bodies Not Reportable 09/16/20 06:10 Sickle Cells Not Reportable 09/16/20 06:10 Target Cells 3+ 09/16/20 06:10 Tear Drop Cells Not Reportable 09/16/20 06:10 Ovalocytes Not Reportable 09/16/20 06:10 Helmet Cells Not Reportable 09/16/20 06:10 [place] Bodies Not Reportable 09/16/20 06:10 Barnard Rings Not Reportable 09/16/20 06:10 Wiley Cells Not Reportable 09/16/20 06:10 Bite Cells Not Reportable 09/16/20 06:10 Crenated Cell Not Reportable 09/16/20 06:10 Elliptocytes Few 09/16/20 06:10 Acanthocytes (Spur) Not Reportable 09/16/20 06:10 Rouleaux Not Reportable 09/16/20 06:10 Hemoglobin C Crystals Not Reportable 09/16/20 06:10 Schistocytes Not Reportable 09/16/20 06:10 Malaria parasites Not Reportable 09/16/20 06:10 Marcio Bodies Not Reportable 09/16/20 06:10 Hem Pathologist Commnt No 09/16/20 06:10 PT 18.2 Sec. (12.2-14.9) H 09/18/20 05:20 INR 1.48 (0.87-1.13) H 09/18/20 05:20 APTT 36.4 Sec. (24.2-36.6) 09/15/20 18:27 D-Dimer 1671.96 ng/mlDDU (0-234) H 09/15/20 18:27 Sodium 141 mmol/L (137-145) 09/16/20 06:10 Potassium 3.5 mmol/L (3.6-5.0) L 09/16/20 06:10 Chloride 101.8 mmol/L (98-107) 09/16/20 06:10 Carbon Dioxide 24 mmol/L (22-30) 09/16/20 06:10 Anion Gap 19 mmol/L 09/16/20 06:10 BUN 5 mg/dL (7-17) L 09/16/20 06:10 Creatinine 0.5 mg/dL (0.6-1.2) L 09/16/20 06:10 Estimated GFR > 60 ml/min 09/16/20 06:10 BUN/Creatinine Ratio 10 % 09/16/20 06:10 Glucose 110 mg/dL (65-100) H 09/16/20 06:10 Calcium 8.8 mg/dL (8.4-10.2) 09/16/20 06:10 Troponin T < 0.010 ng/mL (0.00-0.029) 09/16/20 06:10 Triglycerides 96 mg/dL (2-149) 09/15/20 22:35 Cholesterol 177 mg/dL (50-199) 09/15/20 22:35 LDL Cholesterol Direct 111 mg/dL (50-130) 09/15/20 22:35 HDL Cholesterol 62 mg/dL (40-59) H 09/15/20 22:35 Cholesterol/HDL Ratio 2.85 % 09/15/20 22:35 TSH 7.450 mlU/mL (0.270-4.200) H 09/15/20 22:35 HCG, Quant 1.69 mIU/mL (0-4) 09/16/20 12:36 Nasal Screen MRSA (PCR) Negative (Negative) 09/16/20 01:10 Suggs/IV: Voiding Method Toilet IV Catheter Type [Right INT / Saline Lock Antecubital] IV Catheter Type [Left Wrist] INT / Saline Lock Active Medications - Current Medications Current Medications: Generic Name Dose Route Start Last Admin Trade Name Freq PRN Reason Stop Dose Admin Acetaminophen 650 mg 09/15/20 22:17 09/18/20 10:39 Tylenol PO 650 mg Q4H PRN Administration Pain MILD(1-3)/Fever >100.5/DUMONT Diltiazem HCl 90 mg 09/17/20 10:00 09/18/20 10:41 Cardizem PO 90 mg Q8H DIANA Administration Hydromorphone HCl 0.5 mg 09/15/20 22:52 09/18/20 02:02 Dilaudid IV 0.5 mg Q4H PRN Administration Pain, Moderate (4-6) Labetalol HCl 10 mg 09/16/20 00:33 09/16/20 16:25 Labetalol IV 10 mg Q4H PRN Administration Hypertension Ondansetron HCl 4 mg 09/15/20 22:17 09/17/20 21:33 Zofran IV 4 mg Q8H PRN Administration Nausea And Vomiting Sodium Chloride 10 ml 09/16/20 10:00 09/18/20 10:43 Sodium Chloride Flush Syringe 10 Ml IV 10 ml BID DIANA Administration Sodium Chloride 10 ml 09/15/20 22:17 Sodium Chloride Flush Syringe 10 Ml IV PRN PRN LINE FLUSH Warfarin Sodium 5 mg 09/17/20 10:00 09/18/20 10:40 Coumadin PO 5 mg DAILY DIANA Administration Protocol Nutrition/Malnutrition Assess - Dietary Evaluation Nutrition/Malnutrition Findings: Nutrition Notes Start: 09/18/20 13:44 Freq: Status: Active Protocol: Document 09/18/20 13:44 PAUL (Rec: 09/18/20 13:45 PAUL [email or web address]) Nutrition Notes Need for Assessment generated from: Education Initial or Follow up Brief Note Pertinent Medications Coumadin Subjective/Other Information Pt screened for DNI education. Pt received DNI education from RD during previous admission (March 2020).
[2020-09-19] MEDS: HYDROmorphone 1 MG/1 ML INJ IV PRN (04:43)
[2020-09-19 05:15] VITALS: BP 122/67
[2020-09-19 05:48] LABS: INR 1.45 (0.87-1.13)
--- NOTE | 2020-09-19 13:30 | Discharge Summary ---
Providers - Providers Date of Admission: 09/15/20 22:01 Date of discharge: 09/19/20 Attending physician: LORENA PEREZ 09/16/20 09:49 Consult to Cardiology [CONS] Routine Consulting Provider: KIA AZEVEDO Reason For Exam: atrial fibrillation 09/16/20 10:01 Consult to Physician [CONS] Routine Comment: Consulting Provider: AL NAIK Physician Instructions: Reason For Exam: ovarian mass Primary care physician: PRAVEEN ELISE Hospitalization Condition: Stable Hospital course: --Epigastric pain. Patient with probable ovarian mass. Patient with abnormal CT scan of the abdomen pelvis at [facility] on 09/13/2020 that revealed a large 11.6 cm multiseptated right adnexal cystic lesion. Splenomegaly. Sc attered thoracic and lumbar vertebral body subtle sclerotic changes of uncertain etiology but likely sclerotic metastasis. EKG shows no ischemic changes. Troponin negative x3. Normal perfusion scan January 2020. 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 Valuated by PERCUSSION INSTRUMENT TUNER, outpatient follow-up --Paroxysmal atrial fibrillation. Continue Cardizem drip per cardiology recommendations. Transition to p.o. diltiazem. Resume warfarin. --? L1 compression fracture. Chronic appearing L1 superior plate compression deformity. Pain control. Outpatient Ortho evaluation --History of EtOH use. Disposition: TO HOME OR SELFCARE Time spent for discharge: 32 min Core Measure Documentation - Palliative Care Palliative Care/ Comfort Measures: Not Applicable - Core Measures Any of the following diagnoses?: none Exam - Constitutional Vitals: Temp Pulse Resp BP Pulse Ox 98.1 F 96 H 16 122/67 96 09/19/20 03:41 09/19/20 10:53 09/19/20 03:41 09/19/20 03:41 09/19/20 03:41 General appearance: Present: no acute distress, well-nourished - EENT Eyes: Present: PERRL, EOM intact - Neck Neck: Present: supple, normal ROM - Respiratory Respiratory effort: normal Respiratory: bilateral: diminished, negative: rales, rhonchi, wheezing - Cardiovascular Rhythm: regular Heart Sounds: Present: S1 & S2 - Extremities Extremities: no ischemia, No edema - Abdominal General gastrointestinal: Present: soft, non-tender, non-distended, normal bowel sounds - Integumentary Integumentary: Present: clear, warm - Musculoskeletal Musculoskeletal: strength equal bilaterally - Psychiatric Psychiatric: appropriate mood/affect, cooperative - Neurologic Neurologic: moves all extremities Plan Activity: advance as tolerated Diet: other (Cardiac diet) Additional Instructions: Periodic INR checks, target INR 2-3. Next INR check in 2 days 09/21/2020, at PMD/document control assistant office. Advised to see private PERCUSSION INSTRUMENT TUNER in 1- 2 weeks. If you have worsening symptoms contact MD or go to emergency room as needed Follow up with: PRAVEEN ELISE JR, MD [Primary Care Provider] - 7 Days KLEBER CALDERÓN MD [Staff Physician] - 7 Days AL NAIK MD [Staff Physician] - 7 Days PETRA NIÑO MD [Staff Physician] - 7 Days Forms: Warfarin Discharge Instruction Prescriptions: dilTIAZem CD [Cardizem Cd] 240 mg PO QDAY #30 cap Warfarin [Coumadin] 7.5 mg PO DAILY@1700 #14 tablet
[2020-09-19] MEDS ORDERED: WARFARIN 7.5 MG TAB PO SCH (17:00)
== END 2020-09-19 17:25 | disposition home or self-care (01) | DRG 760 ==
LOC: ED 17:43 → CC1 22:01 → IMCU 23:03 → 4A 09-17 15:53
PROVIDERS: ADMIT Internal Medicine Geriatric Medicine; ATTEND Internal Medicine
DX: N83.201 Unspecified ovarian cyst, right side (principal); M48.56XA Collapsed vertebra, not elsewhere classified, lumbar region, initial encounter for fracture; D49.59 Neoplasm of unspecified behavior of other genitourinary organ; I48.91 Unspecified atrial fibrillation; R07.9 Chest pain, unspecified; I11.0 Hypertensive heart disease with heart failure; I50.9 Heart failure, unspecified; Z90.49 Acquired absence of other specified parts of digestive tract; Z88.6 Allergy status to analgesic agent; Z88.5 Allergy status to narcotic agent
CPT/HCPCS: 36415; 71045; 71275; 76856; 80048; 80061; 82106; 82378; 84443; 84484; 84702; 85007; 85025; 85379; 85610; 85730; 86304; 87641; 93005; 93306; 94760; 96365; 96375; G0378; J1170; J1200; J1885; J2270; J2405; J7030; Q9967

== ENCOUNTER 2021-08-17 03:35 | Emergency (ER) | payer MEDICARE ==
[~2021-08-17 03:35] MED LIST: CALCIUM CHLORIDE 1,000 MG/10 ML SYRINGE IV ONE; EPINEPHrine 1 MG/10 ML SYRINGE ONE; SODIUM BICARB 8.4% 50 MEQ/50 ML SYRINGE IV ONE
--- NOTE | 2021-08-17 03:41 | Emergency Department Report ---
ED CPR HPI - General Chief Complaint: Cardiac Arrest/CPR Stated Complaint: CARDIAC ARREST Time Seen by Provider: 08/17/21 03:37 Source: EMS Mode of arrival: Stretcher Limitations: Altered Mental Status, Physical Limitation - History of Present Illness Initial Comments: Patient is a 60-year-old female presents emergency room for cardiac arrest. Patient brought in by EMS. Report received from EMS. Patient's downtime is approximately 30 minutes. Patient received 3 rounds of epi from EMS and was intubated by EMS. EMS also placed a right tibial IO. MD Complaint: found unresponsive -: unknown Place: home Bystander CPR Performed: No AED Applied by Bystander/Media Coordinator: No Initial Findings in the Field: unresponsive, no respirations, no pulse ROSC in the Field: No Associated Injuries: No Treatments Prior to Arrival: intubation, BMV, chest compressions, epinephrine mgs #, sodium bicarbonate - Related Data Previous Rx's Medication Instructions Recorded Last Taken Type Folic Acid [Folvite] 1 mg PO QDAY #30 tablet 02/15/21 Unknown Rx Metoprolol [Lopressor TAB] 50 mg PO Q8H #90 tablet 02/15/21 Unknown Rx Mirtazapine [Remeron 15mg TAB] 15 mg PO QHS #30 tablet 02/15/21 Unknown Rx Warfarin [Coumadin] 2 mg PO DAILY@1700 #14 tablet 02/15/21 Unknown Rx clonazePAM [ Klonopin] 0.5 mg PO DAILY PRN #30 tab 02/15/21 Unknown Rx dilTIAZem CD [Cardizem CD] 240 mg PO QDAY #30 cap 02/15/21 Unknown Rx predniSONE 10 mg PO .TAPER #21 tab 02/15/21 Unknown Rx Allergies Allergy/AdvReac Type Severity Reaction Status Date / Time morphine Allergy Itching Verified 02/16/19 05:40 ED Review of Systems ROS: Stated complaint: CARDIAC ARREST Other details as noted in HPI Comment: Unobtainable due to pts medical conditions ED Past Medical Hx - Past Medical History Previous Medical History?: Yes Hx Hypertension: Yes Hx Congestive Heart Failure: Yes Hx Diabetes: No Hx Arthritis: Yes Hx Asthma: No Hx COPD: No Additional medical history: A-fib - Surgical History Past Surgical History?: Yes Hx Cholecystectomy: Yes Additional Surgical History: hysterectomy - Family History Family history: no significant - Social History Smoking Status: Never Smoker Substance Use Type: Alcohol - Medications Home Medications: Home Medications Medication Instructions Recorded Confirmed Last Taken Type Folic Acid [Folvite] 1 mg PO QDAY #30 tablet 02/15/21 Unknown Rx Metoprolol [Lopressor TAB] 50 mg PO Q8H #90 tablet 02/15/21 Unknown Rx Mirtazapine [Remeron 15mg TAB] 15 mg PO QHS #30 tablet 02/15/21 Unknown Rx Warfarin [Coumadin] 2 mg PO DAILY@1700 #14 tablet 02/15/21 Unknown Rx clonazePAM [ Klonopin] 0.5 mg PO DAILY PRN #30 tab 02/15/21 Unknown Rx dilTIAZem CD [Cardizem CD] 240 mg PO QDAY #30 cap 02/15/21 Unknown Rx predniSONE 10 mg PO .TAPER #21 tab 02/15/21 Unknown Rx ED Physical Exam - General Limitations: Altered Mental Status, Physical Limitation General appearance: obtunded - Head Head exam: Present: atraumatic, normocephalic - Eye Eye exam: Present: normal appearance, other (Pupils fixed and dilated) - ENT ENT exam: Present: mucous membranes dry - Neck Neck exam: Present: normal inspection - Respiratory Respiratory exam: Present: decreased breath sounds - Cardiovascular Cardiovascular Exam: Present: other (Asystole on the monitor. No pulse noted.) - GI/Abdominal GI/Abdominal exam: Present: soft - Extremities Exam Extremities exam: Present: normal inspection (Except for right tibial IO.), other - Neurological Exam Neurological exam: Present: altered - Skin Skin exam: Present: warm, dry, normal color. Absent: rash ED Course - Reevaluation(s) Reevaluation #1: Patient arrived with EMS. Blood sugar with EMS 161. Patient has received epi from EMS. Patient has a right tibial IO. Patient is intubated by EMS. Placement verified of the ET tube with bilateral breath sounds and no epigastric sounds. Patient transferred to our gurney and CPR was continued. 08/17/21 03:30 Reevaluation #2: Code ran in accordance with ACLS guidelines. Resuscitation efforts were terminated due to no signs of life. No pulse noted. Asystole on the monitor. See code note. Family support given once the family arrives. 08/17/21 03:36 Reevaluation #3: Family support given. Family meeting done. All questions and concerns addressed. 08/17/21 04:15 ED Medical Decision Making - Medical Decision Making Patient is a 60-year-old female that presents emergency room for cardiac arrest. CPR and ACLS guidelines were started by EMS prior to arrival. Report received from EMS prior to arrival. Patient given multiple rounds of epi. Resuscitation efforts were eventually terminated due to no signs of life and no pulse. Patient had no cardiac motion. Patient was asystole on the monitor. Patient was intubated by EMS and the tube placement was verified. EMS also started a right tibial IO and the placement was verified. Patient's right tibial IO was functional. Critical care time documented due to the multiple reassessments, prolonged time at the bedside, interpretation of staff physician and strip. - Differential Diagnosis Cardiac arrest, OR, PE, Critical Care Time: Yes Critical care time in (mins) excluding proc time.: 35 Critical care attestation.: If time is entered above; I have spent that time in minutes in the direct care of this critically ill patient, excluding procedure time. Critical Care Time: 35 minutes ED Disposition Clinical Impression: Cardiac arrest Disposition: 20 Is pt being admited?: No Does the pt Need Aspirin: No Condition: Stable Time of Disposition: 04:25
== END 2021-08-17 05:44 ==
LOC: ED 03:35
DX: I46.9 Cardiac arrest, cause unspecified (principal); I10 Essential (primary) hypertension
CPT/HCPCS: 92950; 99285; J0171